=== PATIENT | female | born 1980 | race Hispanic/Latino ===

== ENCOUNTER 2024-03-31 10:42 | Inpatient (IN) | payer BC ==
[~2024-03-31] VITALS: Ht 162.6 cm; Wt 104.8 kg
[2024-03-31] VITALS (10 sets, daily range): BP systolic 154–162; BP diastolic 78–97; PULSE 86–106; RESP 18–22; TEMP 97.3–99.2; O2SAT 94–97
--- NOTE | 2024-03-31 10:51 | NUR ---
PT JUST PLACED IN MY ED BED 19
--- NOTE | 2024-03-31 11:05 | ERN ---
ED Note History of Present Illness Stated Complaint: COUGH AND CONGESTION Chief Complaint: Congestion Dictation: Patient is a 43-year-old female with past medical history of diabetes came to the ED with chief complaint of shortness of breath since 2 months. Patient is experiencing shortness of breath since 2 months, cough since 1 week, had fever and severe headaches since 3 days. Patient also complains of muscle aches, swelling of feet. Patient denies chest pain, nausea, vomitings. Patient took Tylenol at home with no relief. Allergies: Coded Allergies: No Known Drug Allergies (Unverified Allergy, Unknown, 03/31/24) Past Medical History Past Medical History: Diabetes-Type II Surgical History: Review of System Dictation Constitutional-no weight loss/gain, patient complains of chills and fever Eyes-no injury, pain, redness and discharge ENT-no injury, pain, swelling Cardiovascular no chest pain, palpitations, edema Respiratory no wheezing. Patient has shortness of breath and cough Abdomen/GI-no abdominal pain, diarrhea, constipation, vomiting, nausea Back no injury and pain Genitourinary no injury, bleeding and discharge Musculoskeletal/extremities no injury, deformity patient has body aches, swelling of feet Skin no rash, discoloration Neuro-no weakness, numbness, tingling, seizures, tremors. Patient has headaches Psych-no suicidal ideation, homicidal ideation, hallucinations, depression, anxiety, memory loss Initial Vital Sign VS Vital Signs Date Time Temp Pulse Resp B/P (MAP) Pulse Ox O2 Delivery O2 Flow Rate FiO2 03/31/24 10:44 99.0 98 20 154/85 93 Room Air 0 03/31/24 11:15 21 Physical Exam Dictation General-patient is awake alert and oriented Head/neck-normocephalic, atraumatic Eyes-PERRL, EOMI, vision at baseline Neck-trachea midline, supple, no nuchal rigidity Cardiovascular-RRR, normal S1/S2, no MRG is, no JVD Respiratory-no distress, wheezing, rales, rhonchi Abdomen-no tenderness, guarding, soft, nondistended Skin warm, dry, normal turgor, no rash Musculoskeletal/extremities pulses equal, no cyanosis Neuro-COA X 4, GCS 15, strength 5/5, CN 2-12 intact Psych-normal behavior, mood and affect normal Results (Laboratory/Radiology) Laboratory/Radiology Laboratory Tests Test 03/31/24 10:54 03/31/24 11:19 Influenza Type A Antigen Negative For Type A Influenza Type B Antigen Negative For Type B SARS-CoV-2 Antigen (Rapid) PRESUMPTIVE NEGATIVE Group A Streptococcus Rapid negative (NEGATIVE) White Blood Count 13.1 K/uL (4.8-10.8) H Red Blood Count 5.25 MIL/uL (4.00-5.50) Hemoglobin 7.8 g/dL (12.0-16.0) L Hematocrit 30.9 % (36-48) L Mean Corpuscular Volume 58.9 fL (79-99) L Mean Corpuscular Hemoglobin 14.9 pg (27.0-33.0) L Mean Corpuscular Hemoglobin Concent 25.2 g/dL (32.0-36.0) L Red Cell Distribution Width 19.4 % (11.0-15.5) H Platelet Count 379 K/uL (130-400) Mean Platelet Volume 9.5 fL (7.5-10.5) Immature Granulocyte % (Auto) 2.9 % (0-1) H Neutrophils (%) (Auto) 76.4 % (40.0-77.0) Lymphocytes (%) (Auto) 11.3 % (21.0-51.0) L Monocytes (%) (Auto) 7.7 % (3.0-13.0) Eosinophils (%) (Auto) 0.7 % (0.0-8.0) Basophils (%) (Auto) 1.0 % (0.0-5.0) Neutrophils # (Auto) 10.0 K/uL (1.8-7.7) H Lymphocytes # (Auto) 1.5 K/uL (1.0-4.8) Monocytes # (Auto) 1.0 K/uL (0.1-1.0) Eosinophils # (Auto) 0.09 K/uL (0.00-0.70) Basophils # (Auto) 0.13 K/uL (0.00-0.20) Absolute Immature Granulocyte (auto 0.38 K/uL (0-1) Nucleated Red Blood Cells 0.3 % (0.0-0.19) H Sodium Level 130 mmol/L (136-145) L Potassium Level 3.4 mmol/L (3.5-5.1) L Chloride Level 94 mmol/L (101-111) L Carbon Dioxide Level 34 mmol/L (21-32) H Blood Urea Nitrogen 10 mg/dL (7-18) Creatinine 0.6 mg/dL (0.5-1.0) Glomerular Filtration Rate Calc 115 mL/min (>90) Random Glucose 376 mg/dL (70-105) H Total Calcium 8.6 mg/dL (8.5-10.1) Troponin I High Sensitivity 133 ng/L (4-50) *H Serum Test, Qualitative NEGATIVE (NEGATIVE) ED Course ED Course Orders Procedure Category Date Status Time Cbc With Differential LAB 03/31/24 In Process 10:51 Basic Metabolic Panel LAB 03/31/24 Complete 10:51 Rapid (Group A Strep) LAB 03/31/24 Complete 10:51 Influenza Type A & B, LAB 03/31/24 Complete Rapid 10:51 Covid19 (Sars Antigen LAB 03/31/24 Complete Rapid) 10:51 Chest 1vw RAD 03/31/24 Resulted 10:58 12 Lead Ekg Tracing- EKG 03/31/24 Complete Technical 10:58 B-Type Natriuretic LAB 03/31/24 In Process Peptide 10:58 Troponin I High LAB 03/31/24 Complete Sensitivity 10:58 Loratadine 10 Mg PHA 03/31/24 Complete (Loratadine 10 Mg) 11:30 Arterial Blood Gas RT 03/31/24 Transmitted 11:34 Testing, LAB 03/31/24 In Process Serum Hcg 11:34 Insulin Regular, PHA 03/31/24 In Process Human 3ml (Humulin R 12:00 Occult Blood Stool LAB 03/31/24 Logged Single Only 11:50 Vancomycin 1g/250ml PHA 03/31/24 Logged Kit (Vancomycin 1g/2 12:00 Zosyn 3.375gm+Ns 50ml PHA 03/31/24 Logged (Zosyn 3.375gm+Ns 12:00 Current Medications Medications (Trade) Dose Ordered Sig/Emi Route PRN Reason Start Time Stop Time Status Last Admin Dose Admin Insulin Human Regular (humuLIN R 100 UNIT/ML 3ML) 5 unit ONCE ONCE SQ 03/31/24 12:00 03/31/24 12:01 Loratadine (LORATAdine 10 mg) 10 mg ONCE ONCE PO 03/31/24 11:30 03/31/24 11:31 DC 03/31/24 11:20 Piperacillin Sod/ Tazobactam Sod (Zosyn 3.375gm+NS 50ml) 3.375 gm ONCE ONCE IV 03/31/24 12:00 03/31/24 12:01 UNV Vancomycin HCl (Vancomycin 1g/ 250ml Kit) 1 gm ONCE ONCE IV 03/31/24 12:00 03/31/24 12:01 UNV Vital Signs Date Time Temp Pulse Resp B/P (MAP) Pulse Ox O2 Delivery O2 Flow Rate FiO2 03/31/24 11:15 105 19 146/91 93 Room Air* 0 21 03/31/24 10:44 99.0 98 20 154/85 93 Room Air 0 Medical Decision Making MDM INITIAL IMPRESSION Initial history and physical concerning for possible pneumonia, upper respiratory viral infection I have reviewed the triage nursing notes and vital signs. Initial plan: Laboratory evaluation and x-ray DATA REVIEW I have reviewed additional NN, repeat VS, and monitoring where indicated. Heart rate, blood pressure, and O2 saturation are acceptable. ED COURSE Interventions: Labs and antibiotics Reassessment: Not indicated DISPOSITION Final diagnostic impression: Left lower lobe pneumonia, anemia I discussed my findings, clinical impression and treatment recommendations with the patient. I have reviewed the social factors contributing to the patient's presentation and disposition planning. My final plan for disposition was made based upon -mild risk of complications and potential morbidity of the patient's condition. -Discussion with the patient regarding management options. Patient will be admitted and treated DX & DISP Disposition: Inpatient Decision to Admit Date: Mar 31, 2024 Decision to Admit Time: 12:03 Departure Impression: Primary Impression: Left lower lobe pneumonia Additional Impression: Anemia Condition: Stable Time of Disposition: 12:03 I have reviewed I have reviewed the case I have examined patient SARAH MIMS MD Mar 31, 2024 11:05
--- NOTE | 2024-03-31 11:10 | EKG ---
[facility] Test Date: 2024-03-31 Test Time: 11:08:29 Pat Name: MINH LAGUNA Department: ED Room: 231 Gender: F Attending Urologist: [id number] : 1980 Requested By: SARAH MIMS Order Number: [id number] Reading MD: Marci Roman Measurements Intervals [place] Rate: 101 P: 65 OR: 150 QRS: 40 QRSD: 123 T: -2 QT: 365 QTc: 474 Interpretive Statements Sinus tachycardia Probable left atrial enlargement Right bundle branch block No previous ECG available for comparison Electronically Signed On 04-02-2024 11:33:50 MATERIAL MOVER by Marci Roman Please click the below link to view image of tracing.
[2024-03-31 11:18] LABS: RAPID GROUP A STREP negative (NEGATIVE)
[2024-03-31] MEDS: LORATAdine 10 mg 10 MG TABLET PO ONE (11:20)
[2024-03-31 11:24] LABS: BASOPHILS # (AUTO) 0.13 K/uL (0.00-0.20); EOSINOPHILS # (AUTO) 0.09 K/uL (0.00-0.70); EOSINOPHILS % (AUTO) 0.7 % (0.0-8.0); HEMATOCRIT 30.9 % (36-48); IMMATURE GRANULOCYTE ABSOLUTE 0.38 K/uL (0-1); LYMPHOCYTES # (AUTO) 1.5 K/uL (1.0-4.8); LYMPHOCYTES % (AUTO) 11.3 % (21.0-51.0); MEAN CORPUSCULAR HEMOGLOBIN 14.9 pg (27.0-33.0); MEAN CORPUSCULAR HGB CONC 25.2 g/dL (32.0-36.0); MEAN CORPUSCULAR VOLUME 58.9 fL (79-99); MONOCYTES % (AUTO) 7.7 % (3.0-13.0); NEUTROPHILS % (AUTO) 76.4 % (40.0-77.0); NUCLEATED RED BLOOD CELLS 0.3 % (0.0-0.19); PLATELET COUNT (AUTO) 379 K/uL (130-400); RED BLOOD CELL COUNT(AUTO) 5.25 MIL/uL (4.00-5.50); RED CELL DISTRIBUTION WIDTH 19.4 % (11.0-15.5); WHITE BLOOD COUNT (AUTO) 13.1 K/uL (4.8-10.8)
[2024-03-31 11:28] LABS: COVID19 (SARS ANTIGEN RAPID) PRESUMPTIVE NEGATIVE (NEGATIVE); INFLUENZA TYPE A Negative For Type A (NEGATIVE); INFLUENZA TYPE B Negative For Type B (NEGATIVE)
[2024-03-31 11:30] LABS: CREATININE 0.6 mg/dL (0.5-1.0); POTASSIUM 3.4 mmol/L (3.5-5.1)
--- NOTE | 2024-03-31 11:44 | HMCIMG ---
CHEST 1VW REASON: SOB COMPARISON: None. FINDINGS: There is left lower lobe infiltrate consistent with pneumonia. Lungs are otherwise clear. Heart, mediastinum and bony thorax appear unremarkable. IMPRESSION: 1. Left lower lobe pneumonia.
--- NOTE | 2024-03-31 12:13 | NUR ---
OCCULT SAMPLE COLLECTED AND SENT UP. PT ALSO CHANGED INTO A HOSPITAL GOWN
--- NOTE | 2024-03-31 12:18 | NUR ---
[place]: TAYLOR DYER ASSISTANT INFORMED OF [place]
--- NOTE | 2024-03-31 12:36 | NUR ---
DR PÉREZ WAS JUST IN TO SEE THE PT AND WILL BE PLACING FURTHER ORDERS
[2024-03-31] MEDS ORDERED: VANCOMYCIN PROTOCOL PER PHARMACY IV SCH (13:00)
[2024-03-31] MEDS ORDERED: MAGNESIUM 2GM PREMIX 50ML 50 ML IV SCH (13:00)
[2024-03-31] MEDS ORDERED: PoTASSium chloRIDE 20MEQ/100ML 100 ML IV PRN (13:00)
[2024-03-31] MEDS ORDERED: PoTASSium chloRIDE 20MEQ ER 20 MEQ ERTAB PO PRN (13:00)
[2024-03-31] MEDS ORDERED: acetaMINOPHEN 500 MG TABLET PO PRN (13:00)
[2024-03-31] MEDS ORDERED: ondanSETRON 4MG INJ IVP PRN (13:00)
[2024-03-31 13:03] LABS: ABG BASE EXCESS 0.3 mmol/L (-2.0-3.0); ABG HCO3 24.8 mmol/L (21.0-28.0); ABG OXYGEN SATURATION 90.3 % (94.0-98.0); ABG PCO2 40 mmHg (32-45); ABG PH 7.414 (7.350-7.450); HHb 9.4; PO2, ARTERIAL BG 58.8 mmHg (83.0-108.0); VENT MODE, BG RA (ROOM AIR)
--- NOTE | 2024-03-31 13:05 | NUR ---
ABGS PER TAYLOR ARE: PH 7.4 PCO2 39 PO2 58 BICARB 24
[2024-03-31] MEDS: IpraTROPium 0.5 MG/2.5 ML INH IH ONE (13:10)
[2024-03-31] MEDS: PANTOPrazole 40 MG/VIAL IVP ONE (13:10)
[2024-03-31] MEDS: ZOSYN 3.375GM +NS 50ML IV ONE (13:10)
[2024-03-31] MEDS: BUDESONIDE 0.5 MG/2 ML INH IH ONE ×3 (13:12→15:06)
[2024-03-31 13:14] LABS: RETICULOCYTE % (AUTO) 2.38 % (0.42-2.23)
[2024-03-31 13:16] LABS: % IRON SATURATION 2.3 % (22-44)
[2024-03-31 13:17] LABS: APPEARANCE,URINE CLEAR (CLEAR); BILIRUBIN,URINE NEGATIVE (NEGATIVE); COLOR,URINE LIGHT-YELLOW (YELLOW); GLUCOSE, URINE (UA) >=1000 mg/dL (NEGATIVE); KETONES,URINE 100 mg/dL (NEGATIVE); LEUKOCYTE ESTERASE ,URINE NEGATIVE Leu/uL (NEGATIVE); NITRATE,URINE NEGATIVE (NEGATIVE); OCCULT BLOOD,URINE NEGATIVE (NEGATIVE); PROTEIN,URINE 30 mg/dL (NEGATIVE); UROBILINOGEN,URINE 0.2 mg/dL (0.2-1.0)
[2024-03-31 13:18] LABS: ADD UA MICROSCOPIC YES; BACTERIA,URINE RARE /HPF (None Seen); SQUAMOUS EPITHELIAL CELL,UR RARE /HPF (0-2); WBC,URINE 0-1 /HPF (0-1)
[2024-03-31 13:21] LABS: INR 1.07 (0.85-1.15); PROTHROMBIN TIME 11.5 SEC (9.6-11.6)
[2024-03-31 13:22] LABS: PARTIAL THROMBOPLASTIN TIME 24.7 SEC (26.3-35.5)
[2024-03-31] MEDS: VANCOMYCIN KIT 1 GM/250 ML IV.KIT IV ONE (13:42)
[2024-03-31] MEDS: VANCOMYCIN 2GM/500 ML BAG 500 ML IV ONE (13:42)
[2024-03-31 13:44] LABS: ALBUMIN 3.1 g/dL (3.5-5.0); BILIRUBIN,DIRECT 0.1 mg/dL (0.0-0.3); BILIRUBIN,TOTAL 0.3 mg/dL (0.2-1.0); MAGNESIUM 1.8 mg/dL (1.80-2.40); THYROID STIMULATING HORMONE 0.64 uIU/mL (0.36-3.74); TOTAL PROTEIN, SERUM 7.6 g/dL (6.0-8.3)
--- NOTE | 2024-03-31 13:49 | HP ---
[facility] HISTORY AND PHYSICAL Date of Service: Mar 31, 2024 Time of Service: 13:40 HISTORY OF PRESENT ILLNESS: Date of service: 03/31/2024, patient was seen in ER room 19, 43-year-old female with history of uncontrolled type 2 diabetes mellitus, hypertension who presented to the ER with chief complaint of shortness of breath. Symptoms of shortness of breath have been ongoing for the past several months and has progressively worsened over the past one week. She has noticed subjective fevers, chills and malaise over the last several days. He has been having dry cough as well. She reports having dyspnea on exertion with minimal activities. She also reports having PND and orthopnea. Denies previous history of cardiac or pulmonary comorbidities. She has not been able to follow up with a physician regularly as outpatient due to issues with medical insurance. Also reports having history of heavy periods which has been ongoing for the past five years. Reports having heavy periods for three weeks where she passes blood clots as well. Denies noticing hematemesis, hematochezia, or melena. Denies hemoptysis or hematuria. Denies history of bleeding issues. Reports that she needed blood transfusion about 20 years ago due to an . She has had nine previous pregnancies with seven kids. Currently denies active smoking or alcohol consumption. She works as a care provider. She has been taking care of her son who he recently underwent surgery in [facility] for a torn ACL. She was visiting him in the hospital yesterday. On presentation to the hospital, patient was noted to be tachycardic with heart rate of 98, T-max of 99.0 F and blood pressure of 146/91. [place] [address], hemoglobin of 7.8, MCV of 59, platelet count of 967151. CMP remarkable for corrected sodium of 137, potassium 3.4, creatinine 0.6, blood glucose of 376, cardiac panel of 133, BUN of 109. Chest x-ray showed left lower lobe infiltrate concerning for pneumonia. Patient will be admitted for further management of acute hypoxemic respiratory failure, developing left lower lobe pneumonia, severe iron deficiency anemia with history of menorrhagia, demand ischemia . Patient will be admitted to cardiac telemetry floor and will be monitored closely. REVIEW OF SYSTEMS CONSTITUTIONAL: Fatigue, malaise, asthenia NEUROLOGICAL: Denies headache, amaurosis fugax, motor weakness, sensory deficit, vertigo/spinning sensation, gait abnormalities, or tremors. ENT: No hearing loss, otalgia, otorrhea, rhinitis, rhinorrhea, hoarseness, or sore throat. CARDIOVASCULAR: History of intermittent chest pain as outpatient PULMONARY: Shortness of breath with phlegm, dyspnea on exertion, PND, orthopnea SLEEP: Denies morning headaches, daytime somnolence or napping. Denies difficulty falling asleep, staying asleep, waking from sleep. Denies knowledge of snoring. GASTROINTESTINAL: Denies any type of dysphagia to either liquids or solids. Denies nausea, vomiting, pyrosis, early satiety, abdominal pain, diarrhea, constipation, or changes in stool consistency or caliber. Denies coffee-ground emesis, hematemesis, hematochezia, or melanotic stools. GENITOURINARY: Denies frequency, urgency, nocturia, hematuria or incontinence (Storage/Irritative symptoms.) Low urinary stream, straining to void, urinary intermittency or hesitancy, splitting of the voiding stream, terminal dribbling. ENDOCRINOLOGIC: Denies polyuria, polydipsia, polyphagia or heat/cold intolerances. HEMATOLOGIC: Denies thrombophilia/previous clots, or coagulopathy/bleeding disorders. ONCOLOGIC: Denies personal history of malignancy. DERMATOLOGIC: Denies rashes or pruritus. PSYCHIATRIC: Denies any suicidal or homicidal ideation. Denies hallucinations. PAST MEDICAL HISTORY: History of hypertension and poorly controlled type 2 diabetes mellitus, patient reports having trouble affording antihyperglycemic medications previously due to issues with her medical insurance, she has not been taking anti hypertensive therapy recently PAST SURGICAL HISTORY: History of tubal ligation, history of C-sections PAST SOCIAL HISTORY: Currently denies active smoking or alcohol consumption, prior to getting ill, patient is independent with her ADLs and IADLs, currently works as a care provider FAMILY HISTORY: Family history of heart disease, hypertension, and diabetes in father and mother Allergies: Patient denies any known drug allergies Medications: Patient will be bringing home medication list to be reconciled and updated Coded Allergies: No Known Drug Allergies (Unverified Allergy, Unknown, 03/31/24) PHYSICAL EXAM GENERAL APPEARANCE: The patient is awake, alert, and oriented, in no acute cardiopulmonary distress. NEUROLOGICAL: Cranial nerves II-XII grossly intact. Motor is 5/5 in bilateral upper and lower extremities proximal to distal. No sensory deficits. HEENT: Face is symmetric. Pupils are equal and reactive. Extraocular movements are intact. NECK: Supple. No JVD. No thyromegaly. No submental, submandibular, pre- /postauricular, occipital or supraclavicular lymphadenopathy. CHEST: Normal chest expansion. No Telemetry. LUNGS: Crackles noted of the left lung base, no wheezes and rhonchi noted CARDIOVASCULAR: Regular. S1 and S2 normal. No appreciable rubs, murmurs or gallops. ABDOMEN: Soft, nontender, and nondistended. There is no rebound, voluntary guarding, or rigidity. : Deferred. No Berg. EXTREMITIES: no significant edema noted of the bilateral lower extremities SKIN: No skin breakdown. Vital Sign (Last 24 Hours) 03/31/24 03/31/24 10:44 11:15 Temp 99.0 Pulse 105 Resp 19 B/P (MAP) 146/91 Pulse Ox 93 O2 Delivery Room Air* O2 Flow Rate 0 FiO2 21 LABS: Laboratory: Test 03/31/24 13:01 03/31/24 12:45 03/31/24 12:00 03/31/24 11:19 Range/Units Blood Gas Specimen Type Arterial Arterial Blood pH 7.414 7.350-7.450 Arterial Blood Partial Pressure CO2 40 32-45 mmHg Arterial Blood Partial Pressure O2 58.8 L 83.0-108.0 mmHg Arterial Blood HCO3 24.8 21.0-28.0 mmol/L Arterial Blood Oxygen Saturation 90.3 L 94.0-98.0 % Arterial Blood Base Excess 0.3 -2.0-3.0 mmol/L Hemoglobin (Blood Gas) 9.2 L 12.0-16.0 g/dL Sodium (Blood Gas) 134 L 136-145 MMOL/L Bedside Potassium (Blood Gas) 3.9 3.4-4.5 MMOL/L Bedside Chloride (Blood Gas) 97 L 98-107 MMOL/L Bedside Glucose (Blood Gas) 340 H 65-95 MG/DL Bedside Ionized Calcium (Blood Gas) 1.13 L 1.15-1.33 MMOL/L Bedside Lactic Acid (Blood Gas) 1.83 H 0.36-0.75 MMOL/L Blood Gas Temperature 37.0 35.5-37.0 CELSIUS Blood Gas Vent Mode RA ROOM AIR FiO2 21.0 % Blood Gas Specimen Comment RRJESSE Urine Color LIGHT-YELLOW YELLOW Urine Appearance CLEAR CLEAR Urine pH 6.0 5.0-8.0 Urine Specific [place] 1.040 H 1.001-1.031 Urine Protein 30 H NEGATIVE mg/dL Urine Glucose (UA) >=1000 H NEGATIVE mg/dL Urine Ketones 100 H NEGATIVE mg/dL Urine Occult Blood NEGATIVE NEGATIVE Urine Nitrate NEGATIVE NEGATIVE Urine Bilirubin NEGATIVE NEGATIVE mg/dL Urine Urobilinogen 0.2 0.2-1.0 mg/dL Urine Leukocyte Esterase NEGATIVE NEGATIVE Kt/uL Urine RBC 2-5 H 0-1 /HPF Urine WBC 0-1 0-1 /HPF Urine Squamous Epithelial Cells RARE 0-2 /HPF Urine Bacteria RARE None Seen /HPF Stool Occult Blood NEGATIVE NEGATIVE White Blood Count 13.1 H 4.8-10.8 K/uL Red Blood Count 5.25 4.00-5.50 MIL/uL Hemoglobin 7.8 L 12.0-16.0 g/dL Hematocrit 30.9 L 36-48 % Mean Corpuscular Volume 58.9 L 79-99 fL Mean Corpuscular Hemoglobin 14.9 L 27.0-33.0 pg Mean Corpuscular Hemoglobin Concent 25.2 L 32.0-36.0 g/dL Red Cell Distribution Width 19.4 H 11.0-15.5 % Platelet Count 379 130-400 K/uL Mean Platelet Volume 9.5 7.5-10.5 fL Immature Granulocyte % (Auto) 2.9 H 0-1 % Neutrophils (%) (Auto) 76.4 40.0-77.0 % Lymphocytes (%) (Auto) 11.3 L 21.0-51.0 % Monocytes (%) (Auto) 7.7 3.0-13.0 % Eosinophils (%) (Auto) 0.7 0.0-8.0 % Basophils (%) (Auto) 1.0 0.0-5.0 % Neutrophils # (Auto) 10.0 H 1.8-7.7 K/uL Lymphocytes # (Auto) 1.5 1.0-4.8 K/uL Monocytes # (Auto) 1.0 0.1-1.0 K/uL Eosinophils # (Auto) 0.09 0.00-0.70 K/uL Basophils # (Auto) 0.13 0.00-0.20 K/uL Absolute Immature Granulocyte (auto 0.38 0-1 K/uL Nucleated Red Blood Cells 0.3 H 0.0-0.19 % Red Blood Cell Morphology See comments Reticulocyte Count (auto) 2.47602 H 0.42-2.23 % Immature Reticulocyte Fraction 36.60 H 0.18-0.48 % Prothrombin Time 11.5 9.6-11.6 SEC Prothromb Time International Ratio 1.07 0.85-1.15 Activated Partial Thromboplast Time 24.7 L 26.3-35.5 SEC Sodium Level 130 L 136-145 mmol/L Potassium Level 3.4 L 3.5-5.1 mmol/L Chloride Level 94 L 101-111 mmol/L Carbon Dioxide Level 34 H 21-32 mmol/L Blood Urea Nitrogen 10 7-18 mg/dL Creatinine 0.6 0.5-1.0 mg/dL Glomerular Filtration Rate Calc 115 >90 mL/min Random Glucose 376 H 70-105 mg/dL Total Calcium 8.6 8.5-10.1 mg/dL Iron Level 8 L 50-170 mcg/dL Total Iron Binding Capacity 337 250-450 mcg/dL Percent Iron Saturation 2.3 L 22-44 % Troponin I High Sensitivity 133 *H 4-50 ng/L B-Type Natriuretic Peptide 109 H 0-100 pg/mL Procalcitonin 0.09 0.05-0.5 ng/mL Serum Test, Qualitative NEGATIVE NEGATIVE Test 03/31/24 10:54 Range/Units Influenza Type A Antigen Negative For Type A NEGATIVE Influenza Type B Antigen Negative For Type B NEGATIVE SARS-CoV-2 Antigen (Rapid) PRESUMPTIVE NEGATIVE NEGATIVE Group A Streptococcus Rapid negative NEGATIVE Current Medications Medications (Trade) Dose Ordered Sig/Emi Route PRN Reason Start Time Stop Time Status Last Admin Dose Admin Acetaminophen (TYLenol 500MG TAB) 500 mg Q6H PRN PO MILD PAIN (1-3) 03/31/24 13:00 04/30/24 12:59 Cefepime HCl (MAXipime 2 gm vial) 2 gm Q12H IVPB 03/31/24 16:00 04/10/24 15:59 Doxycycline Hyclate (Doxycycline Hyclate) 100 mg Q12H PO 03/31/24 13:00 04/10/24 12:59 Folic Acid (FOLic ACID 1 MG TABLET) 1 mg DAILY PO 04/01/24 09:00 05/01/24 08:59 Guaifenesin/ Dextromethorphan (RobiTUSSin DM 200/20MG 10ML) 10 ml Q6H PRN PO COUGH 03/31/24 13:30 04/30/24 13:29 Insulin Human Regular (humuLIN R 100 UNIT/ML 3ML) INSULIN SLIDING SCAL... ACHS SQ 03/31/24 16:30 04/30/24 16:29 Ipratropium [place] (AtrovENT UD) 0.5 mg Q6H IH 03/31/24 18:00 04/30/24 17:59 Iron Sucrose 300 mg/Sodium Chloride 250 ml @ 83 mls/hr DAILY IV 04/01/24 09:00 04/04/24 09:00 Future Hold Magnesium Sulfate 50 ml @ 0 mls/hr PROTOCOL IV 03/31/24 13:00 04/30/24 12:59 Ondansetron HCl (zoFRAN 4MG INJ) 4 mg Q6H PRN IVP NAUSEA/VOMITING 03/31/24 13:00 04/30/24 12:59 Pantoprazole Sodium (PROTonix 40MG INJ) 40 mg DAILY IVP 04/01/24 09:00 05/01/24 08:59 Potassium Chloride 100 ml @ 100 mls/hr AD PRN IV POTASSIUM PROTOCOL 03/31/24 13:00 04/30/24 12:59 Potassium Chloride (K-Dur/Klor-Con 20meq) 20 meq AD PRN PO POTASSIUM PROTOCOL 03/31/24 13:00 04/30/24 12:59 Potassium Chloride (KCl 10% Elixir 20meq/15ml) 20 meq AD PRN PO POTASSIUM PROTOCOL 03/31/24 13:00 04/30/24 12:59 Sodium Chloride 1,000 ml @ 75 mls/hr [id number] IV 03/31/24 13:30 04/30/24 13:29 Vancomycin HCl 250 ml @ 125 mls/hr Q8H IV 03/31/24 21:30 04/10/24 21:29 Vancomycin HCl (Vancomycin Protocol) 1 each AD IV 03/31/24 13:00 04/14/24 12:59 DIAGNOSTICS / RADIOLOGY: SERVICE [id number] REASON: SOB ORDERING PHYSICIAN: SARAH MIMS MD PROCEDURE: CXR1VW - CHEST 1VW CHEST 1VW REASON: SOB COMPARISON: None. FINDINGS: There is left lower lobe infiltrate consistent with pneumonia. Lungs are otherwise clear. Heart, mediastinum and bony thorax appear unremarkable. IMPRESSION: 1. Left lower lobe pneumonia. DICTATED BY: VERONICA CHAMBERS MD DATE: 03/31/24 114 ELECTRONICALLY SIGNED BY: VERONICA CHAMBERS MD DATE: 03/31/24 1144 ASSESSMENT: Acute hypoxemic respiratory failure, POA Left lower lobe community-acquired pneumonia, POA Severe iron deficiency anemia with underlying history of menorrhagia for five years, POA Demand ischemia, POA Sinus tachycardia with right bundle branch block, POA Leukocytosis secondary to underlying pneumonia, POA Hypovolemic hyponatremia, POA Hypokalemia, POA Poorly controlled type 2 diabetes mellitus, POA Underlying history of hypertension, POA Suspected obstructive sleep apnea, POA Obesity, POA PLAN: The patient will be admitted to cardiac telemetry floor Continue with supplemental O2 therapy to maintain oxygen saturation greater than 92% With regards to left lower lobe pneumonia, we will start patient on broad- spectrum antibiotics with vancomycin/cefepime/doxycycline Obtain sputum culture, Legionella, urine Streptococcus, and mycoplasma serologies We will start gentle IV hydration with NS at 75 mL/hour x 24 hours as oral intake remains poor, we will check a lactic acid Patient reports having intermittent history of chest pain as outpatient, currently denies active chest pain, we will recheck a cardiac panel for later tonight, obtain 2D echocardiogram, we will have Cardiology follow up with this patient We will start patient on amlodipine 5 mg bid for management of blood pressure, antihypertensives can be titrated based on blood pressure trend next 24-48 hours We will request consultation with pulmonology We will check iron panel, transfuse to maintain hemoglobin greater than seven, obtain pelvic ultrasound to rule out uterine pathology given history of menorrhagia, we will start IV iron sucrose infusion starting tomorrow times 30 days, Dr. Wang with Gynecology has been notified We will start patient on sliding scale insulin a.c. and HS, basal Lantus tonight based on blood glucose trend, patient will need optimization of diabetes control on discharge, will need basal insulin on discharge and oral anti-hyperglycemic Patient will benefit from sleep study as outpatient, we will start CPAP therapy tonight for concerns for MARIANO, patient also may have signs of restless legs syndrome due to severe iron deficiency anemia We will start Pulmicort twice daily and Atrovent q.6 hours We will follow up inflammatory markers,we will check H&H q.6 hours tonight, All labs will be repeated in the morning, transfuse to maintain Hgb > 7 DVT prophylaxis with SCDs today given severe anemia with history of menorrhagia, we will also check a venous Doppler Anticipate hospitalization for at least 72 hours Date of service: 03/31/2024 Plan of care was discussed with patient at bedside, Prognosis: Guarded Rafat Cooper MD Advanced Care Planning: Which of the following were discussed: Hospice care: Yes __ No _x_ Therapeutic options: Yes _x_ No __ Advance directives: Yes _x_ No __ Other discussions: Discussed with who?: Patient Voluntary nature of this service was explained to the patient? Yes _x_ No __ Amount of time spent: 20 minutes RAFAT COOPER MD Mar 31, 2024 13:49
--- NOTE | 2024-03-31 13:50 | NUR ---
HEMATOLOGY CONSULT: DR RIVERO JUST ARRIVED AT BEDSIDE. DR PÉREZ AGAIN AT BEDSIDE WELL.
--- NOTE | 2024-03-31 13:57 | NUR ---
CARDIOLOGY CONSULT: DR PÉREZ GAVE PATIENT REPORT TO DR BOWERS
[2024-03-31] MEDS ORDERED: IRON sUCROse COMPLEX 300 MG in 0.9% NACL 250ML 250 ML IV SCH (14:00)
--- NOTE | 2024-03-31 14:04 | NUR ---
BENCHMARK DENISBILLY MEDIA PROFESSIONAL AT BEDSIDE
--- NOTE | 2024-03-31 14:05 | NUR ---
BED ASSIGNMENT: BED 231 JUST ASSIGNED TO THE PT BY [employer]ENT Amanda TINSLEY
--- NOTE | 2024-03-31 14:16 | CONS ---
CONSULT NOTE: 43-year-old female with history of uncontrolled type 2 diabetes mellitus, hypertension who presented to the ER with chief complaint of shortness of breath. Symptoms of shortness of breath have been ongoing for the past several months and has progressively worsened over the past one week. She has noticed subjective fevers, chills and malaise over the last several days. He has been having dry cough as well. She reports having dyspnea on exertion with minimal activities. She also reports having PND and orthopnea. Denies previous history of cardiac or pulmonary comorbidities. She has not been able to follow up with a physician regularly as outpatient due to issues with medical insurance. Also reports having history of heavy periods which has been ongoing for the past five years. Reports having heavy periods for three weeks where she passes blood clots as well. Denies noticing hematemesis, hematochezia, or melena. Denies hemoptysis or hematuria. Denies history of bleeding issues. Reports that she needed blood transfusion about 20 years ago due to an . She has had nine previous pregnancies with seven kids. Currently denies active smoking or alcohol consumption. 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 She was visiting him in the hospital yesterday. On presentation to the hospital, patient was noted to be tachycardic with heart rate of 98, T-max of 99.0 F and blood pressure of 146/91. [place] [address], hemoglobin of 7.8, MCV of 59, platelet count of [id number]. CMP remarkable for corrected sodium of 137, potassium 3.4, creatinine 0.6, blood glucose of 376, cardiac panel of 133, BUN of 109. Chest x-ray showed left lower lobe infiltrate concerning for pneumonia. Patient will be admitted for further management of acute hypoxemic respiratory failure, developing left lower lobe pneumonia, severe iron deficiency anemia with history of menorrhagia, demand ischemia . Patient will be admitted to cardiac telemetry floor and will be monitored closely. REVIEW OF SYSTEMS CONSTITUTIONAL: Fatigue, malaise, asthenia NEUROLOGICAL: Denies headache, amaurosis fugax, motor weakness, sensory deficit, vertigo/spinning sensation, gait abnormalities, or tremors. ENT: No hearing loss, otalgia, otorrhea, rhinitis, rhinorrhea, hoarseness, or sore throat. CARDIOVASCULAR: History of intermittent chest pain as outpatient PULMONARY: Shortness of breath with phlegm, dyspnea on exertion, PND, orthopnea SLEEP: Denies morning headaches, daytime somnolence or napping. Denies difficulty falling asleep, staying asleep, waking from sleep. Denies knowledge of snoring. GASTROINTESTINAL: Denies any type of dysphagia to either liquids or solids. Denies nausea, vomiting, pyrosis, early satiety, abdominal pain, diarrhea, constipation, or changes in stool consistency or caliber. Denies coffee-ground emesis, hematemesis, hematochezia, or melanotic stools. GENITOURINARY: Denies frequency, urgency, nocturia, hematuria or incontinence (Storage/Irritative symptoms.) Low urinary stream, straining to void, urinary intermittency or hesitancy, splitting of the voiding stream, terminal dribbling. ENDOCRINOLOGIC: Denies polyuria, polydipsia, polyphagia or heat/cold intolerances. HEMATOLOGIC: Denies thrombophilia/previous clots, or coagulopathy/bleeding disorders. ONCOLOGIC: Denies personal history of malignancy. DERMATOLOGIC: Denies rashes or pruritus. PSYCHIATRIC: Denies any suicidal or homicidal ideation. Denies hallucinations. PAST MEDICAL HISTORY: History of hypertension and poorly controlled type 2 diabetes mellitus, patient reports having trouble affording antihyperglycemic medications previously due to issues with her medical insurance, she has not been taking anti hypertensive therapy recently PAST SURGICAL HISTORY: History of tubal ligation, history of C-sections PAST SOCIAL HISTORY: Currently denies active smoking or alcohol consumption, prior to getting ill, patient is independent with her ADLs and IADLs, currently works as a care provider FAMILY HISTORY: Family history of heart disease, hypertension, and diabetes in father and mother Allergies: Patient denies any known drug allergies Medications: Patient will be bringing home medication list to be reconciled and updated Coded Allergies: No Known Drug Allergies (Unverified Allergy, Unknown, 03/31/24) PHYSICAL EXAM GENERAL APPEARANCE: The patient is awake, alert, and oriented, in no acute cardiopulmonary distress. NEUROLOGICAL: Cranial nerves II-XII grossly intact. Motor is 5/5 in bilateral upper and lower extremities proximal to distal. No sensory deficits. HEENT: Face is symmetric. Pupils are equal and reactive. Extraocular movements are intact. NECK: Supple. No JVD. No thyromegaly. No submental, submandibular, pre- /postauricular, occipital or supraclavicular lymphadenopathy. CHEST: Normal chest expansion. No Telemetry. LUNGS: Absence of any rales, rhonchi or any wheezing. CARDIOVASCULAR: Regular. S1 and S2 normal. No appreciable rubs, murmurs or gallops. ABDOMEN: Soft, nontender, and nondistended. There is no rebound, voluntary guarding, or rigidity. : Deferred. No Berg. EXTREMITIES: Non-edematous and not cyanotic. No clubbing. Good capillary refill. SKIN: No skin breakdown. 43-year-old female with history of uncontrolled type 2 diabetes mellitus, hypertension who presented to the ER with chief complaint of shortness of breath. Symptoms of shortness of breath have been ongoing for the past several months and has progressively worsened over the past one week. She has noticed subjective fevers, chills and malaise over the last several days. He has been having dry cough as well. She reports having dyspnea on exertion with minimal activities. She also reports having PND and orthopnea. Denies previous history of cardiac or pulmonary comorbidities. She has not been able to follow up with a physician regularly as outpatient due to issues with medical insurance. Also reports having history of heavy periods which has been ongoing for the past five years. Reports having heavy periods for three weeks where she passes blood clots as well. Denies noticing hematemesis, hematochezia, or melena. Denies hemoptysis or hematuria. Denies history of bleeding issues. Reports that she needed blood transfusion about 20 years ago due to an . She has had nine previous pregnancies with seven kids. Currently denies active smoking or alcohol consumption. 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 She was visiting him in the hospital yesterday. On presentation to the hospital, patient was noted to be tachycardic with heart rate of 98, T-max of 99.0 F and blood pressure of 146/91. Labs [place] [address], hemoglobin of 7.8, MCV of 59, platelet count of [id number]. CMP remarkable for corrected sodium of 137, potassium 3.4, creatinine 0.6, blood glucose of 376, cardiac panel of 133, BUN of 109. Chest x-ray showed left lower lobe infiltrate concerning for pneumonia. Patient was started on antibiotic treatment. Patient was found to have severe anemia with iron deficiency anemia.Her anemia could be multifactorial which could be due to hemolytic anemia and iron deficiency anemia at the same time. REVIEW OF SYSTEMS CONSTITUTIONAL: Fatigue, malaise, asthenia NEUROLOGICAL: Denies headache, amaurosis fugax, motor weakness, sensory deficit, vertigo/spinning sensation, gait abnormalities, or tremors. ENT: No hearing loss, otalgia, otorrhea, rhinitis, rhinorrhea, hoarseness, or sore throat. CARDIOVASCULAR: History of intermittent chest pain as outpatient PULMONARY: Shortness of breath with phlegm, dyspnea on exertion, PND, orthopnea SLEEP: Denies morning headaches, daytime somnolence or napping. Denies difficulty falling asleep, staying asleep, waking from sleep. Denies knowledge of snoring. GASTROINTESTINAL: Denies any type of dysphagia to either liquids or solids. Denies nausea, vomiting, pyrosis, early satiety, abdominal pain, diarrhea, constipation, or changes in stool consistency or caliber. Denies coffee-ground emesis, hematemesis, hematochezia, or melanotic stools. GENITOURINARY: Denies frequency, urgency, nocturia, hematuria or incontinence (Storage/Irritative symptoms.) Low urinary stream, straining to void, urinary intermittency or hesitancy, splitting of the voiding stream, terminal dribbling. ENDOCRINOLOGIC: Denies polyuria, polydipsia, polyphagia or heat/cold intolera nces. HEMATOLOGIC: Denies thrombophilia/previous clots, or coagulopathy/bleeding disorders. ONCOLOGIC: Denies personal history of malignancy. DERMATOLOGIC: Denies rashes or pruritus. PSYCHIATRIC: Denies any suicidal or homicidal ideation. Denies hallucinations. PAST MEDICAL HISTORY: History of hypertension and poorly controlled type 2 diabetes mellitus, patient reports having trouble affording antihyperglycemic medications previously due to issues with her medical insurance, she has not been taking anti hypertensive therapy recently PAST SURGICAL HISTORY: History of tubal ligation, history of C-sections PAST SOCIAL HISTORY: Currently denies active smoking or alcohol consumption, prior to getting ill, patient is independent with her ADLs and IADLs, currently works as a care provider FAMILY HISTORY: Family history of heart disease, hypertension, and diabetes in father and mother Allergies: Patient denies any known drug allergies Medications: Patient will be bringing home medication list to be reconciled and updated Coded Allergies: No Known Drug Allergies (Unverified Allergy, Unknown, 03/31/24) PHYSICAL EXAM GENERAL APPEARANCE: The patient is awake, alert, and oriented, in no acute cardiopulmonary distress. NEUROLOGICAL: Cranial nerves II-XII grossly intact. Motor is 5/5 in bilateral upper and lower extremities proximal to distal. No sensory deficits. HEENT: Face is symmetric. Pupils are equal and reactive. Extraocular movements are intact. NECK: Supple. No JVD. No thyromegaly. No submental, submandibular, pre- /postauricular, occipital or supraclavicular lymphadenopathy. CHEST: Normal chest expansion. No Telemetry. LUNGS: Absence of any rales, rhonchi or any wheezing. CARDIOVASCULAR: Regular. S1 and S2 normal. No appreciable rubs, murmurs or gallops. ABDOMEN: Soft, nontender, and nondistended. There is no rebound, voluntary guarding, or rigidity. : Deferred. No Berg. EXTREMITIES: Non-edematous and not cyanotic. No clubbing. Good capillary refill. SKIN: No skin breakdown. Assessment 1. Anemia which look like multifactorial including iron deficiency anemia, possibility of hemolytic anemia. 2. Left lower lobe community-acquired pneumonia 3. Leukocytosis 4. Reactive thrombocytosis 5. Uncontrolled diabetes mellitus 6. Vaginal bleeding for few years. With seems the patient was seen by [facility] and there was a plan for surgery to be done for this patient. Plan 1. Peripheral blood smear showed red blood cells to be normocytic normochromic. There was increased polychromasia cell with consistent increased reticulocyte count. This patient has not taken oral iron. So this patient could have hemolysis. There was no fragment cell or schistocyte. There is no teardrop cell. There is no rouleaux phenomena. There is no pelger-Huet cell. White blood cell with no blasts. White cell with increased bands and neutrophil which could be consistent with infection. Manual platelet count increased significantly. It is around 600 K. Most likely due to iron deficiency anemia and infection. 2. There was hypersegmented neutrophils. This patient to be started on folic acid 1 mg p.o. daily and vitamin B12 1000 mcg p.o. daily. 3. Will ask for direct Florecita test. If it is positive then this patient could not receive blood transfusion and the patient should be started on high-dose dexamethasone 40 mg IV daily 4. Iron study is low this patient could be started on IV iron tomorrow. 5. No need for blood product transfusion 6. This patient need to be seen by [facility]. Patient have ultrasound to the pelvis. Will follow-up closely. LAB RESULTS 03/31/24 13:01: Blood Gas Specimen Type Arterial, Arterial Blood pH 7.414, Arterial Blood Partial Pressure CO2 40, Arterial Blood Partial Pressure O2 58.8L, Arterial Blood HCO3 24.8, Arterial Blood Oxygen Saturation 90.3L, Arterial Blood Base Excess 0.3, Hemoglobin (Blood Gas) 9.2L, Sodium (Blood Gas) 134L, Bedside Potassium (Blood Gas) 3.9, Bedside Chloride (Blood Gas) 97L, Bedside Glucose (Blood Gas) 340H, Bedside Ionized Calcium (Blood Gas) 1.13L, Bedside Lactic Acid (Blood Gas) 1.83H, Blood Gas Temperature 37.0, Blood Gas Vent Mode RA, FiO2 21.0, Blood Gas Specimen Comment RRJESSE, Lactic Acid Level 1.9 03/31/24 12:45: Urine Color LIGHT-YELLOW, Urine Appearance CLEAR, Urine pH 6.0, Urine Specific [place] 1.040H, Urine Protein 30H, Urine Glucose (UA) >=1000H, Urine Ketones 100H, Urine Occult Blood NEGATIVE, Urine Nitrate NEGATIVE, Urine Bilirubin NEGATIVE, Urine Urobilinogen 0.2, Urine Leukocyte Esterase NEGATIVE, Urine RBC 2-5H, Urine WBC 0-1, Urine Squamous Epithelial Cells RARE, Urine Bacteria RARE 03/31/24 12:00: Stool Occult Blood NEGATIVE 03/31/24 11:19: White Blood Count 13.1H, Red Blood Count 5.25, Hemoglobin 7.8L, Hematocrit 30.9L, Mean Corpuscular Volume 58.9L, Mean Corpuscular Hemoglobin 14.9L, Mean Corpuscular Hemoglobin Concent 25.2L, Red Cell Distribution Width 19.4H, Platelet Count 379, Mean Platelet Volume 9.5, Immature Granulocyte % (Auto) 2.9H, Neutrophils (%) (Auto) 76.4, Lymphocytes (%) (Auto) 11.3L, Monocytes (%) (Auto) 7.7, Eosinophils (%) (Auto) 0.7, Basophils (%) (Auto) 1.0, Neutrophils # (Auto) 10.0H, Lymphocytes # (Auto) 1.5, Monocytes # (Auto) 1.0, Eosinophils # (Auto) 0.09, Basophils # (Auto) 0.13, Absolute Immature Granulocyte (auto 0.38, Nucleated Red Blood Cells 0.3H, Red Blood Cell Morphology See comments, Reticulocyte Count (auto) 2.32876U, Immature Reticulocyte Fraction 36.60H, Prothrombin Time 11.5, Prothromb Time International Ratio 1.07, Activated Partial Thromboplast Time 24.7L, D-Dimer Quantitative (PE/DVT) 674*H, Sodium Level 130L, Potassium Level 3.4L, Chloride Level 94L, Carbon Dioxide Level 34H, Blood Urea Nitrogen 10, Creatinine 0.6, Glomerular Filtration Rate Calc 115, Random Glucose 376H, Hemoglobin A1c 11.0H, Estimated Average Glucose (eAG) 269H, Total Calcium 8.6, Magnesium Level 1.80, Iron Level 8L, Total Iron Binding Capacity 337, Percent Iron Saturation 2.3L, Total Bilirubin 0.3, Direct Bilirubi n 0.1, Aspartate Amino Transf (AST/SGOT) 12, Alanine Aminotransferase (ALT/SGPT) 12, Alkaline Phosphatase 97, Lactate Dehydrogenase 210, Troponin I High Sensitivity 133*H, C-Reactive Protein, Quantitative 86.00H, B-Type Natriuretic Peptide 109H, Total Protein 7.6, Albumin 3.1L, Vitamin B12 Level 1112H, Folic Acid (LAB) 19.00, Procalcitonin 0.09, Thyroid Stimulating Hormone (TSH) 0.64, Serum Test, Qualitative NEGATIVE 03/31/24 10:54: Influenza Type A Antigen Negative For Type A, Influenza Type B Antigen Negative For Type B, SARS-CoV-2 Antigen (Rapid) PRESUMPTIVE NEGATIVE, Group A Streptococcus Rapid negative Laboratory Tests Test 03/31/24 10:54 03/31/24 11:19 03/31/24 12:00 03/31/24 12:45 Influenza Type A Antigen Negative For Type A Influenza Type B Antigen Negative For Type B SARS-CoV-2 Antigen (Rapid) PRESUMPTIVE NEGATIVE Group A Streptococcus Rapid negative (NEGATIVE) White Blood Count 13.1 K/uL (4.8-10.8) H Red Blood Count 5.25 MIL/uL (4.00-5.50) Hemoglobin 7.8 g/dL (12.0-16.0) L Hematocrit 30.9 % (36-48) L Mean Corpuscular Volume 58.9 fL (79-99) L Mean Corpuscular Hemoglobin 14.9 pg (27.0-33.0) L Mean Corpuscular Hemoglobin Concent 25.2 g/dL (32.0-36.0) L Red Cell Distribution Width 19.4 % (11.0-15.5) H Platelet Count 379 K/uL (130-400) Mean Platelet Volume 9.5 fL (7.5-10.5) Immature Granulocyte % (Auto) 2.9 % (0-1) H Neutrophils (%) (Auto) 76.4 % (40.0-77.0) Lymphocytes (%) (Auto) 11.3 % (21.0-51.0) L Monocytes (%) (Auto) 7.7 % (3.0-13.0) Eosinophils (%) (Auto) 0.7 % (0.0-8.0) Basophils (%) (Auto) 1.0 % (0.0-5.0) Neutrophils # (Auto) 10.0 K/uL (1.8-7.7) H Lymphocytes # (Auto) 1.5 K/uL (1.0-4.8) Monocytes # (Auto) 1.0 K/uL (0.1-1.0) Eosinophils # (Auto) 0.09 K/uL (0.00-0.70) Basophils # (Auto) 0.13 K/uL (0.00-0.20) Absolute Immature Granulocyte (auto 0.38 K/uL (0-1) Nucleated Red Blood Cells 0.3 % (0.0-0.19) H Red Blood Cell Morphology See comments Reticulocyte Count (auto) 2.56953 % (0.42-2.23) H Immature Reticulocyte Fraction 36.60 % (0.18-0.48) H Prothrombin Time 11.5 SEC (9.6-11.6) Prothromb Time International Ratio 1.07 (0.85-1.15) Activated Partial Thromboplast Time 24.7 SEC (26.3-35.5) L D-Dimer Quantitative (PE/DVT) 674 ng/mL (0-500) *H Sodium Level 130 mmol/L (136-145) L Potassium Level 3.4 mmol/L (3.5-5.1) L Chloride Level 94 mmol/L (101-111) L Carbon Dioxide Level 34 mmol/L (21-32) H Blood Urea Nitrogen 10 mg/dL (7-18) Creatinine 0.6 mg/dL (0.5-1.0) Glomerular Filtration Rate Calc 115 mL/min (>90) Random Glucose 376 mg/dL (70-105) H Hemoglobin A1c 11.0 % (4.0-6.0) H Estimated Average Glucose (eAG) 269 mg/dL (70-126) H Total Calcium 8.6 mg/dL (8.5-10.1) Magnesium Level 1.80 mg/dL (1.80-2.40) Iron Level 8 mcg/dL (50-170) L Total Iron Binding Capacity 337 mcg/dL (250-450) Percent Iron Saturation 2.3 % (22-44) L Total Bilirubin 0.3 mg/dL (0.2-1.0) Direct Bilirubin 0.1 mg/dL (0.0-0.3) Aspartate Amino Transf (AST/SGOT) 12 U/L (10-37) Alanine Aminotransferase (ALT/SGPT) 12 U/L (12-78) Alkaline Phosphatase 97 U/L (50-136) Lactate Dehydrogenase 210 U/L (81-234) Troponin I High Sensitivity 133 ng/L (4-50) *H C-Reactive Protein, Quantitative 86.00 mg/L (0.5-3.0) H B-Type Natriuretic Peptide 109 pg/mL (0-100) H Total Protein 7.6 g/dL (6.0-8.3) Albumin 3.1 g/dL (3.5-5.0) L Vitamin B12 Level 1112 pg/mL (193-986) H Folic Acid (LAB) 19.00 ng/mL (2-20) Procalcitonin 0.09 ng/mL (0.05-0.5) Thyroid Stimulating Hormone (TSH) 0.64 uIU/mL (0.36-3.74) Serum Test, Qualitative NEGATIVE (NEGATIVE) Stool Occult Blood NEGATIVE (NEGATIVE) Urine Color LIGHT-YELLOW (YELLOW) Urine Appearance CLEAR (CLEAR) Urine pH 6.0 (5.0-8.0) Urine Specific [place] 1.040 (1.001-1.031) Urine Protein 30 mg/dL (NEGATIVE) H Urine Glucose (UA) >=1000 mg/dL (NEGATIVE) H Urine Ketones 100 mg/dL (NEGATIVE) H Urine Occult Blood NEGATIVE (NEGATIVE) Urine Nitrate NEGATIVE (NEGATIVE) Urine Bilirubin NEGATIVE mg/dL (NEGATIVE) Urine Urobilinogen 0.2 mg/dL (0.2-1.0) Urine Leukocyte Esterase NEGATIVE Kt/uL Urine RBC 2-5 /HPF (0-1) H Urine WBC 0-1 /HPF (0-1) Urine Squamous Epithelial Cells RARE /HPF (0-2) Urine Bacteria RARE /HPF (None Seen) Test 03/31/24 13:01 Blood Gas Specimen Type Arterial Arterial Blood pH 7.414 (7.350-7.450) Arterial Blood Partial Pressure CO2 40 mmHg (32-45) Arterial Blood Partial Pressure O2 58.8 mmHg (83.0-108.0) L Arterial Blood HCO3 24.8 mmol/L (21.0-28.0) Arterial Blood Oxygen Saturation 90.3 % (94.0-98.0) L Arterial Blood Base Excess 0.3 mmol/L (-2.0-3.0) Hemoglobin (Blood Gas) 9.2 g/dL (12.0-16.0) L Sodium (Blood Gas) 134 MMOL/L (136-145) L Bedside Potassium (Blood Gas) 3.9 MMOL/L (3.4-4.5) Bedside Chloride (Blood Gas) 97 MMOL/L (98-107) L Bedside Glucose (Blood Gas) 340 MG/DL (65-95) H Bedside Ionized Calcium (Blood Gas) 1.13 MMOL/L (1.15-1.33) L Bedside Lactic Acid (Blood Gas) 1.83 MMOL/L (0.36-0.75) H Blood Gas Temperature 37.0 CELSIUS (35.5-37.0) Blood Gas Vent Mode RA (ROOM AIR) FiO2 21.0 % Blood Gas Specimen Comment RRJESSE Lactic Acid Level 1.9 mmol/L (0.8-2.5) JAMI PINEDA MD Mar 31, 2024 14:16
[2024-03-31] MEDS: amLODIPine 5 MG TAB PO SCH (14:17)
[2024-03-31] MEDS: DOXYCYCLINE HYCLATE 100 MG TABLET PO SCH (14:17)
[2024-03-31] MEDS: INSULIN humuLIN R 100 UNIT/ML 3ML SQ ONE (14:18)
[2024-03-31] MEDS: SODIUM CHLORIDE 3% FOR INHALATION 4 ML/AMP VIAL.NEB IH ONE (14:29)
--- NOTE | 2024-03-31 14:38 | NUR ---
MEDICATION RECONCILIATION: NO MEDS W/PT.
[2024-03-31] MEDS: 0.9%NACL 1000ML 1,000 ML IV SCH (15:00)
[2024-03-31 15:14] LABS: AMPHET/METH SCREEN,URINE NEGATIVE (NEGATIVE); BARBITURATE SCREEN, URINE NEGATIVE (NEGATIVE); BENZODIAZEPINES SCREEN,URINE NEGATIVE (NEGATIVE); CANNABINOID SCREEN,URINE POSITIVE (NEGATIVE); COCAINE SCREEN,URINE NEGATIVE (NEGATIVE); OPIATE SCREEN,URINE NEGATIVE (NEGATIVE); PHENCYCLIDINE SCREEN,URINE NEGATIVE (NEGATIVE)
--- NOTE | 2024-03-31 15:19 | CONS ---
[facility] CARDIOLOGY CONSULTATION NOTE Date Patient Seen: Mar 31, 2024 Time of Visit: 15:17 Requesting Physician: elevated troponin, chest pain Reason for Consultation: Dr Cooper History of Present Illness: Patient is a 43-year-old female with past medical history of hypertension and type 2 diabetes mellitus, uncontrolled, has not been consistently on medications from his issues that she has had poor health care access. She presents to the complaints dyspnea, fevers, and malaise. Patient noted to anemic with a hemoglobin of 7.8 complaints heavy and long periods. Patient reports shortness of breath with dyspnea on exertion NYHA class three symptoms progressively worsening over the past few months. She also admits to two episodes of near-sy ncope over the past two weeks and dizziness. While she does admit to episodic chest discomfort, this is intermittent, not associated with exertion, with last episode one week ago. She also admits to nonproductive cough. Past Medical History: Menometrorrhagia type 2 diabetes mellitus, uncontrolled with hyperglycemia Hypertension Past Surgical History: History of ectopic and surgical removal of fallopian tube History of section x1 Family History: Family history of early coronary artery disease in her grandparents, mother and father as early as the 4th decade of age. Social History: She works as a care provider. She has been taking care of her son who he recently underwent surgery in [facility] for a torn ACL. Denies tobacco use Current Meds: Current Medications Medications Dose Ordered Sig/Emi Start Time Stop Time Status Last Admin Vancomycin HCl 1 each AD 03/31/24 13:00 04/14/24 12:59 Doxycycline Hyclate 100 mg Q12H 03/31/24 13:00 04/10/24 12:59 03/31/24 14:17 Pantoprazole Sodium 40 mg DAILY 04/01/24 09:00 05/01/24 08:59 Ipratropium [place] 0.5 mg Q6H 03/31/24 18:00 04/30/24 17:59 Acetaminophen 500 mg Q6H PRN 03/31/24 13:00 04/30/24 12:59 Cefepime HCl 2 gm Q12H 03/31/24 16:00 04/10/24 15:59 Ondansetron HCl 4 mg Q6H PRN 03/31/24 13:00 04/30/24 12:59 Potassium Chloride 100 ml @ 100 mls/hr AD PRN 03/31/24 13:00 04/30/24 12:59 Potassium Chloride 20 meq AD PRN 03/31/24 13:00 04/30/24 12:59 Potassium Chloride 20 meq AD PRN 03/31/24 13:00 04/30/24 12:59 Vancomycin HCl 500 ml @ 250 mls/hr ONCE ONCE 03/31/24 13:30 03/31/24 15:29 03/31/24 13:42 Insulin Human Regular INSULIN SLIDING SCAL... ACHS 03/31/24 16:30 04/30/24 16:29 Magnesium Sulfate 50 ml @ 0 mls/hr PROTOCOL 03/31/24 13:00 04/30/24 12:59 Folic Acid 1 mg DAILY 04/01/24 09:00 05/01/24 08:59 Vancomycin HCl 250 ml @ 125 mls/hr Q8H 03/31/24 21:30 04/10/24 21:29 Sodium Chloride 1,000 ml @ 75 mls/hr [id number] 03/31/24 13:30 04/30/24 13:29 Guaifenesin/ Dextromethorphan 10 ml Q6H PRN 03/31/24 13:30 04/30/24 13:29 Iron Sucrose 300 mg/Sodium Chloride 250 ml @ 83 mls/hr Q24H 03/31/24 14:00 04/30/24 13:59 Amlodipine Besylate 5 mg Q24H 03/31/24 14:30 04/30/24 14:29 03/31/24 14:17 Insulin Glargine 15 units HS 03/31/24 21:00 04/30/24 20:59 Polyethylene Glycol 17 gm DAILY 04/01/24 09:00 05/01/24 08:59 UNV Methylprednisolone Sodium Succinate 40 mg Q8H 03/31/24 15:30 04/30/24 15:29 UNV Review of Systems: CONST: Reports fevers and generalized fatigue EYES: [No recent vision problems.] ENT: [No congestion, ear pain, or sore throat.] C/V: Reports episode of chest discomfort. RESP: [Reports shortness of breath and cough GI: [No abdominal pain, nausea, vomiting, constipation, or diarrhea.] : [No incontinence or dysuria.] SKIN: [No rash.] NEURO: [No headache, focal numbness or weakness. Reports dizziness. PSYCH: [No depression or anxiety.] HEME: [Reports heavy menstrual periods. LYMPH: [No swollen glands.] Physical Examination: GENERAL: [No acute distress.] HEAD: [Normal with no signs of head trauma.] NECK: [Normal carotid upstrokes without bruits.] LUNGS: [Clear breath sounds bilaterally. There are right basilar rales one third of the way up the chest. No wheezes, or rhonchi.] HEART: [Normal rate and rhythm. Normal S1 and S2 without murmurs, gallop or rub .] VASC: [Peripheral pulses +2 bilaterally.] EXT: [No clubbing, cyanosis or edema.] SKIN: [No rashes or lesions noted.] NEURO: [Awake, alert, and oriented x3. No focal sensory or strength deficits noted.] Vital Signs (last 8hr) Date Time Temp Pulse Resp B/P (MAP) Pulse Ox O2 Delivery O2 Flow Rate FiO2 03/31/24 14:12 98.4 104 18 147/83 96 Nasal Cannula* 2 28 03/31/24 14:06 99 18 161/78 96 Nasal Cannula* 2 28 03/31/24 13:00 89 18 03/31/24 11:15 105 19 146/91 93 Room Air* 0 21 03/31/24 10:44 99.0 98 20 154/85 93 Room Air 0 Laboratory: [ ] Hematology Labs: Test 03/31/24 11:19 Range/Units White Blood Count 13.1 H 4.8-10.8 K/uL Red Blood Count 5.25 4.00-5.50 MIL/uL Hemoglobin 7.8 L 12.0-16.0 g/dL Hematocrit 30.9 L 36-48 % Mean Corpuscular Volume 58.9 L 79-99 fL Mean Corpuscular Hemoglobin 14.9 L 27.0-33.0 pg Mean Corpuscular Hemoglobin Concent 25.2 L 32.0-36.0 g/dL Red Cell Distribution Width 19.4 H 11.0-15.5 % Platelet Count 379 130-400 K/uL Mean Platelet Volume 9.5 7.5-10.5 fL Immature Granulocyte % (Auto) 2.9 H 0-1 % Neutrophils (%) (Auto) 76.4 40.0-77.0 % Lymphocytes (%) (Auto) 11.3 L 21.0-51.0 % Monocytes (%) (Auto) 7.7 3.0-13.0 % Eosinophils (%) (Auto) 0.7 0.0-8.0 % Basophils (%) (Auto) 1.0 0.0-5.0 % Neutrophils # (Auto) 10.0 H 1.8-7.7 K/uL Lymphocytes # (Auto) 1.5 1.0-4.8 K/uL Monocytes # (Auto) 1.0 0.1-1.0 K/uL Eosinophils # (Auto) 0.09 0.00-0.70 K/uL Basophils # (Auto) 0.13 0.00-0.20 K/uL Absolute Immature Granulocyte (auto 0.38 0-1 K/uL Nucleated Red Blood Cells 0.3 H 0.0-0.19 % Red Blood Cell Morphology See comments Erythrocyte Sedimentation Rate 32 H 0-20 MM/HR Reticulocyte Count (auto) 2.16873 H 0.42-2.23 % Immature Reticulocyte Fraction 36.60 H 0.18-0.48 % Chemistry Labs: Test 03/31/24 13:01 03/31/24 11:19 Range/Units Lactic Acid Level 1.9 0.8-2.5 mmol/L Sodium Level 130 L 136-145 mmol/L Potassium Level 3.4 L 3.5-5.1 mmol/L Chloride Level 94 L 101-111 mmol/L Carbon Dioxide Level 34 H 21-32 mmol/L Blood Urea Nitrogen 10 7-18 mg/dL Creatinine 0.6 0.5-1.0 mg/dL Glomerular Filtration Rate Calc 115 >90 mL/min Random Glucose 376 H 70-105 mg/dL Hemoglobin A1c 11.0 H 4.0-6.0 % Estimated Average Glucose (eAG) 269 H 70-126 mg/dL Total Calcium 8.6 8.5-10.1 mg/dL Magnesium Level 1.80 1.80-2.40 mg/dL Iron Level 8 L 50-170 mcg/dL Total Iron Binding Capacity 337 250-450 mcg/dL Percent Iron Saturation 2.3 L 22-44 % Total Bilirubin 0.3 0.2-1.0 mg/dL Direct Bilirubin 0.1 0.0-0.3 mg/dL Aspartate Amino Transf (AST/SGOT) 12 10-37 U/L Alanine Aminotransferase (ALT/SGPT) 12 12-78 U/L Alkaline Phosphatase 97 50-136 U/L Lactate Dehydrogenase 210 81-234 U/L Troponin I High Sensitivity 133 *H 4-50 ng/L C-Reactive Protein, Quantitative 86.00 H 0.5-3.0 mg/L B-Type Natriuretic Peptide 109 H 0-100 pg/mL Total Protein 7.6 6.0-8.3 g/dL Albumin 3.1 L 3.5-5.0 g/dL Vitamin B12 Level 1112 H 193-986 pg/mL Folic Acid (LAB) 19.00 2-20 ng/mL Procalcitonin 0.09 0.05-0.5 ng/mL Thyroid Stimulating Hormone (TSH) 0.64 0.36-3.74 uIU/mL Serum Test, Qualitative NEGATIVE NEGATIVE Coagulation Labs: Test 03/31/24 11:19 Range/Units Prothrombin Time 11.5 9.6-11.6 SEC Prothromb Time International Ratio 1.07 0.85-1.15 Activated Partial Thromboplast Time 24.7 L 26.3-35.5 SEC D-Dimer Quantitative (PE/DVT) 674 *H 0-500 ng/mL Diagnostics / Radiology: REASON: SOB ORDERING PHYSICIAN: SARAH MIMS MD PROCEDURE: CXR1VW - CHEST 1VW CHEST 1VW REASON: SOB COMPARISON: None. FINDINGS: There is left lower lobe infiltrate consistent with pneumonia. Lungs are otherwise clear. Heart, mediastinum and bony thorax appear unremarkable. IMPRESSION: 1. Left lower lobe pneumonia. DICTATED BY: VERONICA CHAMBERS MD DATE: 03/31/24 1141 Assessment: Elevated troponin Community-acquired pneumonia Microcytic anemia Menometrorrhagia Type 2 diabetes mellitus, uncontrolled with hemoglobin A1c of 11% Lack of consistent healthcare access Plan: We will obtain a 2nd troponin Keep the patient on continuous telemetry monitoring We will obtain transthoracic echocardiogram Even if no significant trend in her troponin or significant abnormality on echocardiogram, given her risk factors (underlying hypertension, uncontrolled type 2 diabetes mellitus and family history of early coronary artery disease), would recommend additional evaluation as an outpatient by way of coronary CT angiography KEY BOWERS DO Mar 31, 2024 15:19
--- NOTE | 2024-03-31 15:23 | CONS ---
[facility] CONSULTATION NOTE Date Patient Seen: Mar 31, 2024 Time of Visit: 15:06 Supervising Physician: Dr. Yrn Cordero Reason for Consultation: Pneumonia Primary Care Physician: No family doctor Outpatient Specialists: NA Inpatient Consults: Dr. Cordero PROBLEM LIST: Acute hypoxic respiratory failure Community-acquired pneumonia Hyperglycemia in the setting of type 2 diabetes mellitus, which is uncontrolled with hemoglobin A1c 11.0 Substance abuse: Marijuana Microcytic normochromic anemia- iron deficient Leukocytosis with no left shift Acute likely on chronic congestive heart failure with unknown ejection fraction Obesity BMI of 40 History of obesity, current marijuana use, hypertension, diabetes mellitus HPI: This is a 43 year-old female with past medical history of obesity, current marijuana use, hypertension, diabetes mellitus, and ectopic who came to the hospital with complaint of shortness of breaths and cough. [facility] is consulted for pneumonia. According to the patient, she has been having shortness of breath for two months now. Patient stated that even with talking she would be out of breath. She also has dyspnea on exertion. Patient has been trying to use inhaler that his son received from the nephew, although she did not know what it was. This has not worked. Patient has noticed that starting last week she had fever. On Wednesday she had dry cough and this has worsened after she was at the hospital to care for her son who had injured knee undergoing surgery [facility]. Patient admits that she is using marijuana with last use being last week. 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 She denies alcohol abuse, illicit drug use other than weed and denies cigarette smoking. PAST MEDICAL HX: Diabetes mellitus Hypertension Obesity PAST SURGICAL HX: Ectopic with bleeding SOCIAL HISTORY: Admits smoking weed. Denies cigarette/ tobacco smoking Denies ETOH abuse Denies illicit drug use Has seven children Lives with three, is in senior care for five years and will be out this coming May. Coded Allergies: No Known Drug Allergies (Unverified Allergy, Unknown, 03/31/24) REVIEW OF SYSTEMS: 12 point ROS reviewed with patient. Pertinent positives mentioned above. Otherwise negative. PHYSICAL EXAM: GENERAL: alert, weak, awake oriented x 3 HEENT: EOMI, Sclera non icteric, moist mucosa NECK: Supple, no JVD, trachea midline LUNGS: Rales throughout, respiratory wheezing. HEART: Regular rate and rhythm. Normal S1 and S2, without murmurs ABD: Abdomen soft, nontender. Bowel sounds present EXT: No clubbing cyanosis or edema NEURO: Alert and oriented to person, follows commands Vital Signs (last 8hr) Date Time Temp Pulse Resp B/P (MAP) Pulse Ox O2 Delivery O2 Flow Rate FiO2 03/31/24 14:12 98.4 104 18 147/83 96 Nasal Cannula* 2 28 03/31/24 14:06 99 18 161/78 96 Nasal Cannula* 2 03/31/24 13:00 89 18 03/31/24 11:15 105 19 146/91 93 Room Air* 0 21 03/31/24 10:44 99.0 98 20 154/85 93 Room Air 0 LABS: Hematology Labs: Test 03/31/24 11:19 Range/Units White Blood Count 13.1 H 4.8-10.8 K/uL Red Blood Count 5.25 4.00-5.50 MIL/uL Hemoglobin 7.8 L 12.0-16.0 g/dL Hematocrit 30.9 L 36-48 % Mean Corpuscular Volume 58.9 L 79-99 fL Mean Corpuscular Hemoglobin 14.9 L 27.0-33.0 pg Mean Corpuscular Hemoglobin Concent 25.2 L 32.0-36.0 g/dL Red Cell Distribution Width 19.4 H 11.0-15.5 % Platelet Count 379 130-400 K/uL Mean Platelet Volume 9.5 7.5-10.5 fL Immature Granulocyte % (Auto) 2.9 H 0-1 % Neutrophils (%) (Auto) 76.4 40.0-77.0 % Lymphocytes (%) (Auto) 11.3 L 21.0-51.0 % Monocytes (%) (Auto) 7.7 3.0-13.0 % Eosinophils (%) (Auto) 0.7 0.0-8.0 % Basophils (%) (Auto) 1.0 0.0-5.0 % Neutrophils # (Auto) 10.0 H 1.8-7.7 K/uL Lymphocytes # (Auto) 1.5 1.0-4.8 K/uL Monocytes # (Auto) 1.0 0.1-1.0 K/uL Eosinophils # (Auto) 0.09 0.00-0.70 K/uL Basophils # (Auto) 0.13 0.00-0.20 K/uL Absolute Immature Granulocyte (auto 0.38 0-1 K/uL Nucleated Red Blood Cells 0.3 H 0.0-0.19 % Red Blood Cell Morphology See comments Erythrocyte Sedimentation Rate 32 H 0-20 MM/HR Reticulocyte Count (auto) 2.58708 H 0.42-2.23 % Immature Reticulocyte Fraction 36.60 H 0.18-0.48 % Chemistry Labs: Test 03/31/24 13:01 03/31/24 11:19 Range/Units Lactic Acid Level 1.9 0.8-2.5 mmol/L Sodium Level 130 L 136-145 mmol/L Potassium Level 3.4 L 3.5-5.1 mmol/L Chloride Level 94 L 101-111 mmol/L Carbon Dioxide Level 34 H 21-32 mmol/L Blood Urea Nitrogen 10 7-18 mg/dL Creatinine 0.6 0.5-1.0 mg/dL Glomerular Filtration Rate Calc 115 >90 mL/min Random Glucose 376 H 70-105 mg/dL Hemoglobin A1c 11.0 H 4.0-6.0 % Estimated Average Glucose (eAG) 269 H 70-126 mg/dL Total Calcium 8.6 8.5-10.1 mg/dL Magnesium Level 1.80 1.80-2.40 mg/dL Iron Level 8 L 50-170 mcg/dL Total Iron Binding Capacity 337 250-450 mcg/dL Percent Iron Saturation 2.3 L 22-44 % Total Bilirubin 0.3 0.2-1.0 mg/dL Direct Bilirubin 0.1 0.0-0.3 mg/dL Aspartate Amino Transf (AST/SGOT) 12 10-37 U/L Alanine Aminotransferase (ALT/SGPT) 12 12-78 U/L Alkaline Phosphatase 97 50-136 U/L Lactate Dehydrogenase 210 81-234 U/L Troponin I High Sensitivity 133 *H 4-50 ng/L C-Reactive Protein, Quantitative 86.00 H 0.5-3.0 mg/L B-Type Natriuretic Peptide 109 H 0-100 pg/mL Total Protein 7.6 6.0-8.3 g/dL Albumin 3.1 L 3.5-5.0 g/dL Vitamin B12 Level 1112 H 193-986 pg/mL Folic Acid (LAB) 19.00 2-20 ng/mL Procalcitonin 0.09 0.05-0.5 ng/mL Thyroid Stimulating Hormone (TSH) 0.64 0.36-3.74 uIU/mL Serum Test, Qualitative NEGATIVE NEGATIVE Coagulation Labs: Test 03/31/24 11:19 Range/Units Prothrombin Time 11.5 9.6-11.6 SEC Prothromb Time International Ratio 1.07 0.85-1.15 Activated Partial Thromboplast Time 24.7 L 26.3-35.5 SEC D-Dimer Quantitative (PE/DVT) 674 *H 0-500 ng/mL DIAGNOSTICS / RADIOLOGY RESULTS: CHEST 1VW REASON: SOB COMPARISON: None. FINDINGS: There is left lower lobe infiltrate consistent with pneumonia. Lungs are otherwise clear. Heart, mediastinum and bony thorax appear unremarkable. IMPRESSION: 1. Left lower lobe pneumonia. PLAN NEURO: Minimize central acting medications as possible. Maintain fall precautions, adequate lighting during the day PULMONARY: Supplemental 02 as needed. Maintain aspiration precautions at all times Oxygen supplementation CP overnight Antibiotic for community-acquired, Tapering steroids CARDIOVASCULAR: Follow hemodynamics. Vital signs per facility protocol Trend BNP Echocardiogram GI & NUTRITION: Continue with nutritional support. Continue stool softeners and laxatives as needed. Bowel regimen KIDNEYS & ELECTROLYTES: Strict monitoring of intake, output and overall fluid balance. Avoid nephrotoxic medications to the extent possible. Medications to be dosed according to renal function. Monitor electrolytes and replace as needed Iron panel is low, ferrous sulfate ENDOCRINE: Maintain blood glucose between 100-180 at all times. Hypoglycemia protocol in place Insulin sliding scale Hemoglobin A1c is 11, patient will need long-acting insulin. Diabetic education Weight management INFECTIOUS DISEASE: Trend temperature, WBC and procalcitonin level Follow cultures, deescalate antibiotics as soon as possible. Panculture if new onset fever ONCOLOGY/HEMATOLOGY/COAGULATION: Monitor for s/s of bleeding Monitor hemoglobin, coagulation studies as needed SKIN: Pressure ulcer prevention per facility protocol Specialty mattress ORTHO/REHAB: Continue PT/OT Prophylaxis: Continue GI and DVT prophylaxis Code Status: Full Resuscitation Disposition: TBD Other: Social for Substance abuse cessation Total patient care time exceeds 35 minutes excluding all procedures. SUKI GONSALEZ [facility] Mar 31, 2024 15:23
[2024-03-31] MEDS ORDERED: INSULIN humuLIN R 100 UNIT/ML 3ML SQ SCH (16:30)
[2024-03-31] MEDS ORDERED: COMPOUND IV REFRIGERATED 1 EACH IVSOLN MISC PRN (16:30)
[2024-03-31] MEDS ORDERED: COMPOUND IV MISC 1 EACH IVSOLN MISC PRN (16:30)
[2024-03-31 16:34] LABS: CHOLESTEROL 112 mg/dL (<200); HDL CHOLESTEROL 25 mg/dL (35-85); LDL DIRECT 67 mg/dL (0-99); TRIGLYCERIDES 135 mg/dL (30-200)
[2024-03-31] MEDS: ceFEPime HCL 2 GM VIAL IVPB SCH (16:58)
[2024-03-31] MEDS: INSULIN humuLIN R 100 UNIT/ML 3ML SQ SCH (17:01)
--- NOTE | 2024-03-31 17:30 | HMCIMG ---
ULTRASOUND VENOUS DOPPLER, BILATERAL LOWER EXTREMITIES INDICATION: Bilateral lower extremity pain and swelling TECHNIQUE: Routine grayscale and color Doppler ultrasound of the bilateral lower extremity veins performed. COMPARISON: No priors. FINDINGS: The demonstrated veins of the bilateral lower extremity including the common femoral vein, femoral vein, and popliteal vein are associated with normal compressibility, augmentation, and flow. Normal respiratory variation was identified. No evidence for echogenic intraluminal thrombus formation. IMPRESSION: No sonographic evidence for deep venous thrombosis within the bilateral lower extremity veins.
[2024-03-31 17:44] LABS: CREATININE,URINE RANDOM 44.56 mg/dL (30-135); PROTEIN,URINE RANDOM 94.4 mg/dL (0-11.9)
--- NOTE | 2024-03-31 18:19 | HMCIMG ---
ULTRASOUND OF THE PELVIS ULTRASOUND ABD VASCULAR LIMITED INDICATION: Pelvic pain COMPARISONS: None TECHNIQUE: Transabdominal real-time sonographic images were acquired earlier, and subsequently made available for review. FINDINGS/IMPRESSION: Examination is limited by patient body habitus and extensive overlying bowel gas. The uterus measures 10.0 x 5.2 x 7.0 cm. Endometrium and the ovaries were not well-demonstrated, but no abnormal adnexal mass detected. No free pelvic fluid demonstrated.
[2024-03-31] MEDS: IpraTROPium 0.5 MG/2.5 ML INH IH SCH (18:44)
[2024-03-31] MEDS: Solu-medROL 40MG VIAL IVP SCH (19:26)
[2024-03-31] MEDS: PoTASSium chl 10% ELIXIR 20MEQ 20 MEQ/15 ML UDCUP PO PRN (19:26)
[2024-03-31] MEDS ORDERED: MAGNESIUM 2GM PREMIX 50ML 50 ML IV PRN (19:30)
[2024-03-31 19:57] LABS: HEMATOCRIT 29.6 % (36-48)
[2024-03-31 20:01] LABS: CREATINE KINASE, TOTAL 52 U/L (21-232)
[2024-03-31] MEDS: INSULIN GLARgine 100 UNITS/ML 10 ML VIAL SQ SCH (20:44)
[2024-03-31] MEDS ORDERED: INSULIN GLARgine 100 UNITS/ML 10 ML VIAL SQ SCH (21:00)
[2024-03-31] MEDS ORDERED: VANCOMYCIN 1G/250ML KIT 250 ML IV SCH (21:30)
[2024-03-31] MEDS: VANCOMYCIN 1G/250ML KIT 250 ML IV SCH (23:36)
[2024-04-01] VITALS (16 sets, daily range): BP systolic 112–157; BP diastolic 50–89; PULSE 73–100; RESP 16–20; TEMP 98.3–98.6; O2SAT 95–97
[2024-04-01] MEDS: SODIUM CHLORIDE FOR INHALATION 3 ML VIAL.NEB. IH ONE (03:34)
[2024-04-01] MEDS: RACEPINEPHRINE HCL 2.25% 0.5 ML NEB SOLN NEB PRN (03:34)
[2024-04-01 04:25] LABS: BASOPHILS # (AUTO) 0.13 K/uL (0.00-0.20); BASOPHILS % (AUTO) 0.9 % (0.0-5.0); EOSINOPHILS # (AUTO) 0.03 K/uL (0.00-0.70); EOSINOPHILS % (AUTO) 0.2 % (0.0-8.0); HEMATOCRIT 32.1 % (36-48); IMMATURE GRANULOCYTE ABSOLUTE 0.72 K/uL (0-1); LYMPHOCYTES # (AUTO) 1.7 K/uL (1.0-4.8); LYMPHOCYTES % (AUTO) 11.3 % (21.0-51.0); MEAN CORPUSCULAR HEMOGLOBIN 14.3 pg (27.0-33.0); MEAN CORPUSCULAR VOLUME 59.7 fL (79-99); MONOCYTES # (AUTO) 0.4 K/uL (0.1-1.0); MONOCYTES % (AUTO) 2.7 % (3.0-13.0); NEUTROPHILS # (AUTO) 12.1 K/uL (1.8-7.7); NEUTROPHILS % (AUTO) 80.1 % (40.0-77.0); NUCLEATED RED BLOOD CELLS 0.3 % (0.0-0.19); PLATELET COUNT (AUTO) 443 K/uL (130-400); RED BLOOD CELL COUNT(AUTO) 5.38 MIL/uL (4.00-5.50); RED CELL DISTRIBUTION WIDTH 19.6 % (11.0-15.5); WHITE BLOOD COUNT (AUTO) 15.1 K/uL (4.8-10.8)
[2024-04-01 04:54] LABS: CREATININE 0.6 mg/dL (0.5-1.0); POTASSIUM 4.1 mmol/L (3.5-5.1)
--- NOTE | 2024-04-01 05:30 | NUR ---
Stridor episodes Notified [facility] [employer] that pt had 1x stridor episode while awake watching TV around 6pm. Dayshift nurse reported blue lips and visible difficulty breathing. Pt stated she felt her "throat closing" and that she has been having these episodes at home intermittently. RT was notified and gave pt breathing treatment but pt recovered on own. BIS on-call was notified by [email or web address] and a PRN 1x treatment was ordered if another episode occurs. Pt had 1x stridor episode tonight after using RR and racepinephrine was given by RT. Pt recovered quickly before treatment. Pt denies difficulty swallowing outside of these episodes. She did say again that she felt her throat closed. Pt could not speak during the short episode. No medication was running or given prior. She does desat to 80s off of oxygen and does not use home O2. Per [employer], chest CT and neck CT w/o contrast to be ordered in AM to assess. Pt currently in bed without distress and denies any difficulty breathing.
--- NOTE | 2024-04-01 08:33 | HMCIMG ---
CHEST 1VW HISTORY: Pneumonia COMPARISON: 03/31/2024 FINDINGS: A frontal projection of the chest was obtained. Mild bilateral pulmonary infiltrates are seen may be related to mild pulmonary vascular congestion with possible superimposed pneumonitis. The heart is borderline enlarged. Degenerative changes are seen. No evidence of aortic calcification is seen. IMPRESSION: 1. Mild bilateral pulmonary infiltrates are seen may be related to mild pulmonary vascular congestion with possible superimposed pneumonitis.
[2024-04-01 08:49] LABS: HIV 1&2 ANTIBODY Non-Reactive (Negative); HIV-1 p24 Antigen Non-Reactive (Negative)
[2024-04-01] MEDS: INSULIN GLARgine 100 UNITS/ML 10 ML VIAL SQ SCH (09:00)
[2024-04-01] MEDS ORDERED: IRON sUCROse COMPLEX 300 MG in 0.9% NACL 250ML 250 ML IV SCH (09:00)
[2024-04-01] MEDS: polyETHYLene GLYCol 3350 17 GM POWD.PACK PO SCH (09:05)
[2024-04-01] MEDS: PANTOPrazole 40 MG/VIAL IVP SCH (09:05)
[2024-04-01] MEDS: amLODIPine 5 MG TAB PO SCH (09:06)
[2024-04-01] MEDS: FOLic ACID 1 MG TABLET PO SCH (09:06)
--- NOTE | 2024-04-01 09:06 | PN ---
43-year-old female with history of uncontrolled type 2 diabetes mellitus, hypertension who presented to the ER with chief complaint of shortness of breath. Symptoms of shortness of breath have been ongoing for the past several months and has progressively worsened over the past one week. She has noticed subjective fevers, chills and malaise over the last several days. He has been having dry cough as well. She reports having dyspnea on exertion with minimal activities. She also reports having PND and orthopnea. Denies previous history of cardiac or pulmonary comorbidities. She has not been able to follow up with a physician regularly as outpatient due to issues with medical insurance. Also reports having history of heavy periods which has been ongoing for the past five years. Reports having heavy periods for three weeks where she passes blood clots as well. Denies noticing hematemesis, hematochezia, or melena. Denies hemoptysis or hematuria. Denies history of bleeding issues. Reports that she needed blood transfusion about 20 years ago due to an . She has had nine previous pregnancies with seven kids. Currently denies active smoking or alcohol consumption. 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 She was visiting him in the hospital yesterday. On presentation to the hospital, patient was noted to be tachycardic with heart rate of 98, T-max of 99.0 F and blood pressure of 146/91. [place] [address], hemoglobin of 7.8, MCV of 59, platelet count of [id number]. CMP remarkable for corrected sodium of 137, potassium 3.4, creatinine 0.6, blood glucose of 376, cardiac panel of 133, BUN of 109. Chest x-ray showed left lower lobe infiltrate concerning for pneumonia. Patient will be admitted for further management of acute hypoxemic respiratory failure, developing left lower lobe pneumonia, severe iron deficiency anemia with history of menorrhagia, demand ischemia . Patient will be admitted to cardiac telemetry floor and will be monitored closely. REVIEW OF SYSTEMS CONSTITUTIONAL: Fatigue, malaise, asthenia NEUROLOGICAL: Denies headache, amaurosis fugax, motor weakness, sensory deficit, vertigo/spinning sensation, gait abnormalities, or tremors. ENT: No hearing loss, otalgia, otorrhea, rhinitis, rhinorrhea, hoarseness, or sore throat. CARDIOVASCULAR: History of intermittent chest pain as outpatient PULMONARY: Shortness of breath with phlegm, dyspnea on exertion, PND, orthopnea SLEEP: Denies morning headaches, daytime somnolence or napping. Denies difficulty falling asleep, staying asleep, waking from sleep. Denies knowledge of snoring. GASTROINTESTINAL: Denies any type of dysphagia to either liquids or solids. Denies nausea, vomiting, pyrosis, early satiety, abdominal pain, diarrhea, constipation, or changes in stool consistency or caliber. Denies coffee-ground emesis, hematemesis, hematochezia, or melanotic stools. GENITOURINARY: Denies frequency, urgency, nocturia, hematuria or incontinence (Storage/Irritative symptoms.) Low urinary stream, straining to void, urinary intermittency or hesitancy, splitting of the voiding stream, terminal dribbling. ENDOCRINOLOGIC: Denies polyuria, polydipsia, polyphagia or heat/cold intolerances. HEMATOLOGIC: Denies thrombophilia/previous clots, or coagulopathy/bleeding disorders. ONCOLOGIC: Denies personal history of malignancy. DERMATOLOGIC: Denies rashes or pruritus. PSYCHIATRIC: Denies any suicidal or homicidal ideation. Denies hallucinations. PAST MEDICAL HISTORY: History of hypertension and poorly controlled type 2 diabetes mellitus, patient reports having trouble affording antihyperglycemic medications previously due to issues with her medical insurance, she has not been taking anti hypertensive therapy recently PAST SURGICAL HISTORY: History of tubal ligation, history of C-sections PAST SOCIAL HISTORY: Currently denies active smoking or alcohol consumption, prior to getting ill, patient is independent with her ADLs and IADLs, currently works as a care provider FAMILY HISTORY: Family history of heart disease, hypertension, and diabetes in father and mother Allergies: Patient denies any known drug allergies Medications: Patient will be bringing home medication list to be reconciled and updated Coded Allergies: No Known Drug Allergies (Unverified Allergy, Unknown, 03/31/24) PHYSICAL EXAM GENERAL APPEARANCE: The patient is awake, alert, and oriented, in no acute cardiopulmonary distress. NEUROLOGICAL: Cranial nerves II-XII grossly intact. Motor is 5/5 in bilateral upper and lower extremities proximal to distal. No sensory deficits. HEENT: Face is symmetric. Pupils are equal and reactive. Extraocular movements are intact. NECK: Supple. No JVD. No thyromegaly. No submental, submandibular, pre- /postauricular, occipital or supraclavicular lymphadenopathy. CHEST: Normal chest expansion. No Telemetry. LUNGS: Absence of any rales, rhonchi or any wheezing. CARDIOVASCULAR: Regular. S1 and S2 normal. No appreciable rubs, murmurs or gallops. ABDOMEN: Soft, nontender, and nondistended. There is no rebound, voluntary guarding, or rigidity. : Deferred. No Berg. EXTREMITIES: Non-edematous and not cyanotic. No clubbing. Good capillary refill. SKIN: No skin breakdown. 43-year-old female with history of uncontrolled type 2 diabetes mellitus, hypertension who presented to the ER with chief complaint of shortness of breath. Symptoms of shortness of breath have been ongoing for the past several months and has progressively worsened over the past one week. She has noticed subjective fevers, chills and malaise over the last several days. He has been having dry cough as well. She reports having dyspnea on exertion with minimal activities. She also reports having PND and orthopnea. Denies previous history of cardiac or pulmonary comorbidities. She has not been able to follow up with a physician regularly as outpatient due to issues with medical insurance. Also reports having history of heavy periods which has been ongoing for the past five years. Reports having heavy periods for three weeks where she passes blood clots as well. Denies noticing hematemesis, hematochezia, or melena. Denies hemoptysis or hematuria. Denies history of bleeding issues. Reports that she needed blood transfusion about 20 years ago due to an . She has had nine previous pregnancies with seven kids. Currently denies active smoking or alcohol consumption. 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 She was visiting him in the hospital yesterday. On presentation to the hospital, patient was noted to be tachycardic with heart rate of 98, T-max of 99.0 F and blood pressure of 146/91. Labs [place] [address], hemoglobin of 7.8, MCV of 59, platelet count of 308284. CMP remarkable for corrected sodium of 137, potassium 3.4, creatinine 0.6, blood glucose of 376, cardiac panel of 133, BUN of 109. Chest x-ray showed left lower lobe infiltrate concerning for pneumonia. Patient was started on antibiotic treatment. Patient was found to have severe anemia with iron deficiency anemia.Her anemia could be multifactorial which could be due to hemolytic anemia and iron deficiency anemia at the same time. PHYSICAL EXAM GENERAL APPEARANCE: The patient is awake, alert, and oriented, in no acute cardiopulmonary distress. NEUROLOGICAL: Cranial nerves II-XII grossly intact. Motor is 5/5 in bilateral upper and lower extremities proximal to distal. No sensory deficits. HEENT: Face is symmetric. Pupils are equal and reactive. Extraocular movements are intact. NECK: Supple. No JVD. No thyromegaly. No submental, submandibular, pre- /postauricular, occipital or supraclavicular lymphadenopathy. CHEST: Normal chest expansion. No Telemetry. LUNGS: Absence of any rales, rhonchi or any wheezing. CARDIOVASCULAR: Regular. S1 and S2 normal. No appreciable rubs, murmurs or gallops. ABDOMEN: Soft, nontender, and nondistended. There is no rebound, voluntary guarding, or rigidity. : Deferred. No Berg. EXTREMITIES: Non-edematous and not cyanotic. No clubbing. Good capillary refill. SKIN: No skin breakdown. Assessment 1. Anemia which look like multifactorial including iron deficiency anemia, possibility of hemolytic anemia. 2. Left lower lobe community-acquired pneumonia 3. Leukocytosis 4. Reactive thrombocytosis 5. Uncontrolled diabetes mellitus 6. Vaginal bleeding for few years. With seems the patient was seen by HOME DEMONSTRATION AGENT and there was a plan for surgery to be done for this patient. Plan 1. Peripheral blood smear showed red blood cells to be normocytic normochromic. There was increased polychromasia cell with consistent increased reticulocyte count. This patient has not taken oral iron. So this patient could have hemolysis. There was no fragment cell or schistocyte. There is no teardrop cell. There is no rouleaux phenomena. There is no pelger-Huet cell. White blood cell with no blasts. White cell with increased bands and neutrophil which could be consistent with infection. Manual platelet count increased significantly. It is around 600 K. Most likely due to iron deficiency anemia and infection. 2. There was hypersegmented neutrophils. This patient to be started on folic acid 1 mg p.o. daily and vitamin B12 1000 mcg p.o. daily. 3. Direct Florecita test was negative. 4. Iron study is low this patient could be started on IV iron today. 5. No need for blood product transfusion 6. This patient need to be seen by HOME DEMONSTRATION AGENT. Patient have ultrasound to the pelvis. Will follow-up closely. Vitals/Labs Vital Signs Date Time Temp Pulse Resp B/P (MAP) Pulse Ox O2 Delivery O2 Flow Rate FiO2 04/01/24 07:54 98.6 82 18 136/78 95 Room Air 04/01/24 03:05 3.0 03/31/24 20:20 32 Laboratory Tests 03/31/24 11:19 03/31/24 19:20 04/01/24 03:59 Medications Current Medications Loratadine 10 mg ONCE ONCE PO Last administered on 03/31/24at 11:20; Start 03/31/24 at 11:30; Stop 03/31/24 at 11:31; Status DC Insulin Human Regular 5 unit ONCE ONCE SQ Last administered on 03/31/24at 14:18; Start 03/31/24 at 12:00; Stop 03/31/24 at 12:04; Status DC Vancomycin HCl 1 gm ONCE ONCE IV; Start 03/31/24 at 12:00; Stop 03/31/24 at 12:07; Status DC Piperacillin Sod/ Tazobactam Sod 3.375 gm ONCE ONCE IV Last administered on 03/31/24at 13:10; Start 03/31/24 at 12:00; Stop 03/31/24 at 12:07; Status DC Pantoprazole Sodium 80 mg ONCE ONCE IVP Last administered on 03/31/24at 13:10; Start 03/31/24 at 12:30; Stop 03/31/24 at 12:31; Status DC Ipratropium [place] 0.5 MG ONCE ONCE IH Last administered on 03/31/24at 13:10; Start 03/31/24 at 12:30; Stop 03/31/24 at 12:31; Status DC Budesonide 0.5 mg STK-MED ONCE IH Last administered on 03/31/24at 13:12; Start 03/31/24 at 12:29; Stop 03/31/24 at 12:29; Status DC Vancomycin HCl 1 each AD IV; Start 03/31/24 at 13:00; Stop 04/14/24 at 12:59 Doxycycline Hyclate 100 mg Q12H PO Last administered on 04/01/24at 01:13; Start 03/31/24 at 13:00; Stop 04/01/24 at 07:56; Status DC Pantoprazole Sodium 40 mg DAILY IVP; Start 04/01/24 at 09:00; Stop 05/01/24 at 08:59 Ipratropium [place] 0.5 mg Q6H IH Last administered on 04/01/24at 07:05; Start 03/31/24 at 18:00; Stop 04/30/24 at 17:59 Acetaminophen 500 mg Q6H PRN PO; Start 03/31/24 at 13:00; Stop 04/30/24 at 12:59 Cefepime HCl 2 gm Q12H IVPB Last administered on 04/01/24at 03:54; Start 03/31/24 at 16:00; Stop 04/10/24 at 15:59 Ondansetron HCl 4 mg Q6H PRN IVP; Start 03/31/24 at 13:00; Stop 04/30/24 at 12:59 Potassium Chloride 100 ml @ 100 mls/hr AD PRN IV; Start 03/31/24 at 13:00; Stop 04/30/24 at 12:59 Potassium Chloride 20 meq AD PRN PO Last administered on 03/31/24at 19:26; Start 03/31/24 at 13:00; Stop 04/30/24 at 12:59 Potassium Chloride 20 meq AD PRN PO; Start 03/31/24 at 13:00; Stop 04/30/24 at 12:59 Vancomycin HCl 500 ml @ 250 mls/hr ONCE ONCE IV Last administered on 03/31/24at 13:42; Start 03/31/24 at 13:30; Stop 03/31/24 at 15:29; Status DC Insulin Human Regular INSULIN SLIDING SCAL... ACHS SQ; Start 03/31/24 at 16:30; Stop 03/31/24 at 15:28; Status DC Magnesium Sulfate 50 ml @ 0 mls/hr PROTOCOL IV; Start 03/31/24 at 13:00; Stop 04/30/24 at 12:59 Folic Acid 1 mg DAILY PO; Start 04/01/24 at 09:00; Stop 05/01/24 at 08:59 Vancomycin HCl 250 ml @ 125 mls/hr Q8H IV; Start 03/31/24 at 21:30; Stop 03/31/24 at 19:24; Status DC Iron Sucrose 300 mg/Sodium Chloride 250 ml @ 83 mls/hr DAILY IV; Start 04/01/24 at 09:00; Stop 03/31/24 at 13:51; Status DC Sodium Chloride 1,000 ml @ 75 mls/hr [id number] IV Last administered on 03/31/24at 15:00; Start 03/31/24 at 13:30; Stop 04/30/24 at 13:29 Budesonide 0.5 mg STK-MED ONCE IH; Start 03/31/24 at 13:09; Stop 03/31/24 at 13:09; Status DC Budesonide 0.5 mg STK-MED ONCE IH Last administered on 03/31/24at 15:06; Start 03/31/24 at 13:12; Stop 03/31/24 at 13:12; Status DC Guaifenesin/ Dextromethorphan 10 ml Q6H PRN PO; Start 03/31/24 at 13:30; Stop 04/30/24 at 13:29 Iron Sucrose 300 mg/Sodium Chloride 250 ml @ 83 mls/hr Q24H IV; Start 03/31/24 at 14:00; Stop 03/31/24 at 16:05; Status DC Amlodipine Besylate 5 mg Q24H PO Last administered on 03/31/24at 14:17; Start 03/31/24 at 14:30; Stop 04/01/24 at 01:33; Status DC Sodium Chloride 4 ml STK-MED ONCE IH Last administered on 03/31/24at 14:29; Start 03/31/24 at 14:24; Stop 03/31/24 at 14:24; Status DC Insulin Glargine 15 units HS SQ; Start 03/31/24 at 21:00; Stop 03/31/24 at 15:28; Status DC Polyethylene Glycol 17 gm DAILY PO; Start 04/01/24 at 09:00; Stop 05/01/24 at 08:59 Methylprednisolone Sodium Succinate 40 mg Q8H IVP Last administered on 04/01/24at 01:12; Start 03/31/24 at 15:30; Stop 04/30/24 at 15:29 Insulin Glargine 20 units HS SQ Last administered on 03/31/24at 20:44; Start 03/31/24 at 21:00; Stop 04/01/24 at 07:53; Status DC Insulin Human Regular INSULIN SLIDING SCAL... ACHS SQ Last administered on 04/01/24at 05:55; Start 03/31/24 at 16:30; Stop 04/30/24 at 16:29 Iron Sucrose 300 mg/Sodium Chloride 250 ml @ 83 mls/hr DAILY IV; Start 04/01/24 at 09:00; Stop 04/03/24 at 12:01 Vancomycin HCl 250 ml @ 125 mls/hr Q8H IV Last administered on 04/01/24at 06:45; Start 03/31/24 at 23:30; Stop 04/10/24 at 23:29 Epinephrine 1 ml ONCE PRN NEB Last administered on 04/01/24at 03:34; Start 03/31/24 at 19:30; Stop 04/30/24 at 19:29 Magnesium Sulfate 50 ml @ 0 mls/hr PROTOCOL PRN IV; Start 03/31/24 at 19:30; Stop 03/31/24 at 19:30; Status DC Amlodipine Besylate 5 mg BID PO; Start 04/01/24 at 09:00; Stop 04/30/24 at 14:29 Sodium Chloride 3 ml STK-MED ONCE IH Last administered on 04/01/24at 03:34; Start 04/01/24 at 02:57; Stop 04/01/24 at 02:58; Status DC Insulin Glargine 20 units BID SQ; Start 04/01/24 at 08:00; Stop 04/30/24 at 20:59 JAMI PINEDA MD Apr 01, 2024 09:06
--- NOTE | 2024-04-01 09:10 | PN ---
[facility] CARDIOLOGY PROGRESS NOTE Cardiology progress note dictated for Lilliana Ontiveros MD Primary neon molder: Marci Roman MD Date Patient Seen: Apr 01, 2024 Interval History: The patient describes two episodes of laryngospasm that occurred last night. She continues with a dry cough. Telemetry demonstrating NSR/ST. The patient denies chest, palpitations, orthopnea, PND, dizziness, nausea, or vomiting. She admits to blood staining on her adult diaper. WBC has increased from 13.1 up to 15.1, hemoglobin of 7.7 with hematocrit 32.1 today. Chest x-ray with worsening right sided vascular congestion. She has bilateral rhonchi with expiratory wheezing to the right lung only. Physical Examination: GENERAL: No acute distress. On 2L of o2 via NC HEAD: Normal with no signs of head trauma. EYES: PERRLA, EOMI, conjunctiva and sclera normal. NECK: Supple without JVD. There is no tenderness, lymphadenopathy, or masses. No thyromegaly. Normal carotid upstrokes without bruits. LUNGS: Bilateral rhonchi with expiratory wheezing to the right lung only. HEART: Normal rate and rhythm. Normal S1 and S2 without murmurs, gallop or rub. VASC: Peripheral pulses +2 bilaterally. EXT: No clubbing, cyanosis or edema. NEURO: Awake, alert, and oriented x3. No focal neurological deficits noted. Laboratory: Hematology Labs: Test 04/01/24 03:59 03/31/24 11:19 Range/Units White Blood Count 15.1 H 4.8-10.8 K/uL Red Blood Count 5.38 4.00-5.50 MIL/uL Hemoglobin 7.7 L 12.0-16.0 g/dL Hematocrit 32.1 L 36-48 % Mean Corpuscular Volume 59.7 L 79-99 fL Mean Corpuscular Hemoglobin 14.3 L 27.0-33.0 pg Mean Corpuscular Hemoglobin Concent 24.0 L 32.0-36.0 g/dL Red Cell Distribution Width 19.6 H 11.0-15.5 % Platelet Count 443 H 130-400 K/uL Mean Platelet Volume 10.5 7.5-10.5 fL Immature Granulocyte % (Auto) 4.8 H 0-1 % Neutrophils (%) (Auto) 80.1 H 40.0-77.0 % Lymphocytes (%) (Auto) 11.3 L 21.0-51.0 % Monocytes (%) (Auto) 2.7 L 3.0-13.0 % Eosinophils (%) (Auto) 0.2 0.0-8.0 % Basophils (%) (Auto) 0.9 0.0-5.0 % Neutrophils # (Auto) 12.1 H 1.8-7.7 K/uL Lymphocytes # (Auto) 1.7 1.0-4.8 K/uL Monocytes # (Auto) 0.4 0.1-1.0 K/uL Eosinophils # (Auto) 0.03 0.00-0.70 K/uL Basophils # (Auto) 0.13 0.00-0.20 K/uL Absolute Immature Granulocyte (auto 0.72 0-1 K/uL Nucleated Red Blood Cells 0.3 H 0.0-0.19 % Red Blood Cell Morphology See comments Erythrocyte Sedimentation Rate 32 H 0-20 MM/HR Reticulocyte Count (auto) 2.84713 H 0.42-2.23 % Immature Reticulocyte Fraction 36.60 H 0.18-0.48 % Chemistry Labs: Test 04/01/24 05:15 04/01/24 03:59 03/31/24 13:01 03/31/24 11:19 Range/Units Whole Blood Glucose 359 H 70-110 MG/DL Bedside Glucose Comment Notified Nurse Sodium Level 138 136-145 mmol/L Potassium Level 4.1 3.5-5.1 mmol/L Chloride Level 99 L 101-111 mmol/L Carbon Dioxide Level 27 21-32 mmol/L Blood Urea Nitrogen 10 7-18 mg/dL Creatinine 0.6 0.5-1.0 mg/dL Glomerular Filtration Rate Calc 115 >90 mL/min Random Glucose 390 H 70-105 mg/dL Total Calcium 8.5 8.5-10.1 mg/dL Total Creatine Kinase 48 21-232 U/L Troponin I High Sensitivity 72.3 *H 4-50 ng/L Lactic Acid Level 1.9 0.8-2.5 mmol/L Hemoglobin A1c 11.0 H 4.0-6.0 % Estimated Average Glucose (eAG) 269 H 70-126 mg/dL Magnesium Level 1.80 1.80-2.40 mg/dL Iron Level 8 L 50-170 mcg/dL Total Iron Binding Capacity 337 250-450 mcg/dL Percent Iron Saturation 2.3 L 22-44 % Ferritin 9 L 15-150 ng/mL Total Bilirubin 0.3 0.2-1.0 mg/dL Direct Bilirubin 0.1 0.0-0.3 mg/dL Aspartate Amino Transf (AST/SGOT) 12 10-37 U/L Alanine Aminotransferase (ALT/SGPT) 12 12-78 U/L Alkaline Phosphatase 97 50-136 U/L Lactate Dehydrogenase 210 81-234 U/L C-Reactive Protein, Quantitative 86.00 H 0.5-3.0 mg/L B-Type Natriuretic Peptide 109 H 0-100 pg/mL Total Protein 7.6 6.0-8.3 g/dL Albumin 3.1 L 3.5-5.0 g/dL Triglycerides Level 135 30-200 mg/dL Cholesterol Level 112 <200 mg/dL LDL Cholesterol 67 0-99 mg/dL HDL Cholesterol 25 L 35-85 mg/dL Vitamin B12 Level 1112 H 193-986 pg/mL Folic Acid (LAB) 19.00 2-20 ng/mL Procalcitonin 0.09 0.05-0.5 ng/mL Thyroid Stimulating Hormone (TSH) 0.64 0.36-3.74 uIU/mL Serum Test, Qualitative NEGATIVE NEGATIVE Coagulation Labs: Test 03/31/24 11:19 Range/Units Prothrombin Time 11.5 9.6-11.6 SEC Prothromb Time International Ratio 1.07 0.85-1.15 Activated Partial Thromboplast Time 24.7 L 26.3-35.5 SEC D-Dimer Quantitative (PE/DVT) 674 *H 0-500 ng/mL Diagnostics / Radiology: Impression and Plan: Elevated troponin Community-acquired pneumonia Elevated D-Dimer Microcytic anemia HTN Menometrorrhagia Type 2 diabetes mellitus, uncontrolled with hemoglobin A1c of 11% Lack of consistent healthcare access Urine drug screen positive for marijuana Minimally elevated Troponin levels of 133, 100, and 72.3 in a flat pattern, not ACS Elevated D-dimer at 674, pending a CTA of the chest Two episodes of laryngospasm like events last night, pending an US of the neck -Keep the patient on continuous telemetry monitoring -Pending transthoracic echocardiogram to assess LV function, wall motion abnormalities or valvular pathology -Even if no significant trend in her troponin or significant abnormality on echocardiogram, given her risk factors (underlying hypertension, uncontrolled type 2 diabetes mellitus and family history of early coronary artery disease), would recommend additional evaluation as an outpatient by way of coronary CT angiography LEI EDWARDS [employer] Apr 01, 2024 09:10
[2024-04-01] MEDS: IRON sUCROse COMPLEX 300 MG in 0.9% NACL 250ML 250 ML IV SCH (09:17)
--- NOTE | 2024-04-01 09:51 | PN ---
[facility] PROGRESS NOTE Date of Service: Apr 01, 2024 Time of Service: 07:48 SUBJECTIVE: 03/31 patient seen at bedside, no acute events overnight. She was assessed by OBGYN today who recommends her to follow-up in his clinic where he will do an endometrial biopsy and a repeat pelvic ultrasound. Patient continues having episodes of stridor that have been occurring over the last year she also has a hoarse voice, this is concerning for a possible mass or neurologic issue involving the vocal cords. A CT of the head and neck has been ordered, we will follow up with the results. If it is not revealing a bronchoscopy may be more revealing. She has been afebrile, hemodynamically stable saturating well on 3 L nasal cannula. WBC increased from 13.1 up to 50.1 however she has been started on systemic steroids, hemoglobin improved from 7.4 up to 7.7, platelets elevated at 443, reticulocyte count elevated at 2.38 suggesting adequate hematopoiesis, blood sugar is elevated in the 300s, we will adjust her sliding scale and add glargine. Remainder of her labs are relatively unremarkable. REVIEW OF SYSTEMS CONSTITUTIONAL: Fatigue, malaise, asthenia NEUROLOGICAL: Denies headache, amaurosis fugax, motor weakness, sensory deficit, vertigo/spinning sensation, gait abnormalities, or tremors. ENT: No hearing loss, otalgia, otorrhea, rhinitis, rhinorrhea, hoarseness, or sore throat. CARDIOVASCULAR: History of intermittent chest pain as outpatient PULMONARY: Shortness of breath with phlegm, dyspnea on exertion, PND, orthopnea SLEEP: Denies morning headaches, daytime somnolence or napping. Denies difficulty falling asleep, staying asleep, waking from sleep. Denies knowledge of snoring. GASTROINTESTINAL: Denies any type of dysphagia to either liquids or solids. Denies nausea, vomiting, pyrosis, early satiety, abdominal pain, diarrhea, constipation, or changes in stool consistency or caliber. Denies coffee-ground e mesis, hematemesis, hematochezia, or melanotic stools. GENITOURINARY: Denies frequency, urgency, nocturia, hematuria or incontinence (Storage/Irritative symptoms.) Low urinary stream, straining to void, urinary intermittency or hesitancy, splitting of the voiding stream, terminal dribbling. ENDOCRINOLOGIC: Denies polyuria, polydipsia, polyphagia or heat/cold intolerances. HEMATOLOGIC: Denies thrombophilia/previous clots, or coagulopathy/bleeding disorders. ONCOLOGIC: Denies personal history of malignancy. DERMATOLOGIC: Denies rashes or pruritus. PSYCHIATRIC: Denies any suicidal or homicidal ideation. Denies hallucinations. PHYSICAL EXAM GENERAL APPEARANCE: The patient is awake, alert, and oriented, in no acute cardiopulmonary distress. NEUROLOGICAL: Cranial nerves II-XII grossly intact. Motor is 5/5 in bilateral upper and lower extremities proximal to distal. No sensory deficits. HEENT: Face is symmetric. Pupils are equal and reactive. Extraocular movements are intact. NECK: Supple. No JVD. No thyromegaly. No submental, submandibular, pre-/posta uricular, occipital or supraclavicular lymphadenopathy. CHEST: Normal chest expansion. No Telemetry. LUNGS: Crackles noted of the left lung base, no wheezes and rhonchi noted CARDIOVASCULAR: Regular. S1 and S2 normal. No appreciable rubs, murmurs or gallops. ABDOMEN: Soft, nontender, and nondistended. There is no rebound, voluntary guarding, or rigidity. : Deferred. No Berg. EXTREMITIES: no significant edema noted of the bilateral lower extremities SKIN: No skin breakdown. Vital Signs (last 8hr) Date Time Temp Pulse Resp B/P (MAP) Pulse Ox O2 Delivery O2 Flow Rate FiO2 04/01/24 07:06 95 18 04/01/24 03:05 98.2 100 18 157/81 92 Nasal Cannula 3.0 04/01/24 03:00 97 18 LABS: Laboratory: Test 04/01/24 05:15 04/01/24 03:59 03/31/24 13:01 03/31/24 12:45 Range/Units Whole Blood Glucose 359 H 70-110 MG/DL Bedside Glucose Comment Notified Nurse White Blood Count 15.1 H 4.8-10.8 K/uL Red Blood Count 5.38 4.00-5.50 MIL/uL Hemoglobin 7.7 L 12.0-16.0 g/dL Hematocrit 32.1 L 36-48 % Mean Corpuscular Volume 59.7 L 79-99 fL Mean Corpuscular Hemoglobin 14.3 L 27.0-33.0 pg Mean Corpuscular Hemoglobin Concent 24.0 L 32.0-36.0 g/dL Red Cell Distribution Width 19.6 H 11.0-15.5 % Platelet Count 443 H 130-400 K/uL Mean Platelet Volume 10.5 7.5-10.5 fL Immature Granulocyte % (Auto) 4.8 H 0-1 % Neutrophils (%) (Auto) 80.1 H 40.0-77.0 % Lymphocytes (%) (Auto) 11.3 L 21.0-51.0 % Monocytes (%) (Auto) 2.7 L 3.0-13.0 % Eosinophils (%) (Auto) 0.2 0.0-8.0 % Basophils (%) (Auto) 0.9 0.0-5.0 % Neutrophils # (Auto) 12.1 H 1.8-7.7 K/uL Lymphocytes # (Auto) 1.7 1.0-4.8 K/uL Monocytes # (Auto) 0.4 0.1-1.0 K/uL Eosinophils # (Auto) 0.03 0.00-0.70 K/uL Basophils # (Auto) 0.13 0.00-0.20 K/uL Absolute Immature Granulocyte (auto 0.72 0-1 K/uL Nucleated Red Blood Cells 0.3 H 0.0-0.19 % Sodium Level 138 136-145 mmol/L Potassium Level 4.1 3.5-5.1 mmol/L Chloride Level 99 L 101-111 mmol/L Carbon Dioxide Level 27 21-32 mmol/L Blood Urea Nitrogen 10 7-18 mg/dL Creatinine 0.6 0.5-1.0 mg/dL Glomerular Filtration Rate Calc 115 >90 mL/min Random Glucose 390 H 70-105 mg/dL Total Calcium 8.5 8.5-10.1 mg/dL Total Creatine Kinase 48 21-232 U/L Troponin I High Sensitivity 72.3 *H 4-50 ng/L Blood Gas Specimen Type Arterial Arterial Blood pH 7.414 7.350-7.450 Arterial Blood Partial Pressure CO2 40 32-45 mmHg Arterial Blood Partial Pressure O2 58.8 L 83.0-108.0 mmHg Arterial Blood HCO3 24.8 21.0-28.0 mmol/L Arterial Blood Oxygen Saturation 90.3 L 94.0-98.0 % Arterial Blood Base Excess 0.3 -2.0-3.0 mmol/L Hemoglobin (Blood Gas) 9.2 L 12.0-16.0 g/dL Sodium (Blood Gas) 134 L 136-145 MMOL/L Bedside Potassium (Blood Gas) 3.9 3.4-4.5 MMOL/L Bedside Chloride (Blood Gas) 97 L 98-107 MMOL/L Bedside Glucose (Blood Gas) 340 H 65-95 MG/DL Bedside Ionized Calcium (Blood Gas) 1.13 L 1.15-1.33 MMOL/L Bedside Lactic Acid (Blood Gas) 1.83 H 0.36-0.75 MMOL/L Blood Gas Temperature 37.0 35.5-37.0 CELSIUS Blood Gas Vent Mode RA ROOM AIR FiO2 21.0 % Blood Gas Specimen Comment RRJESSE Lactic Acid Level 1.9 0.8-2.5 mmol/L Urine Color LIGHT-YELLOW YELLOW Urine Appearance CLEAR CLEAR Urine pH 6.0 5.0-8.0 Urine Specific [place] 1.040 H 1.001-1.031 Urine Protein 30 H NEGATIVE mg/dL Urine Glucose (UA) >=1000 H NEGATIVE mg/dL Urine Ketones 100 H NEGATIVE mg/dL Urine Occult Blood NEGATIVE NEGATIVE Urine Nitrate NEGATIVE NEGATIVE Urine Bilirubin NEGATIVE NEGATIVE mg/dL Urine Urobilinogen 0.2 0.2-1.0 mg/dL Urine Leukocyte Esterase NEGATIVE NEGATIVE Kt/uL Urine RBC 2-5 H 0-1 /HPF Urine WBC 0-1 0-1 /HPF Urine Squamous Epithelial Cells RARE 0-2 /HPF Urine Bacteria RARE None Seen /HPF Urine Random Creatinine 44.56 30-135 mg/dL Urine Random Total Protein 94.4 H 0-11.9 mg/dL Urine Opiates Screen NEGATIVE NEGATIVE Urine Barbiturates Screen NEGATIVE NEGATIVE Urine Phencyclidine Screen NEGATIVE NEGATIVE Urine Amphetamines Screen NEGATIVE NEGATIVE Urine Benzodiazepines Screen NEGATIVE NEGATIVE Urine Cocaine Screen NEGATIVE NEGATIVE Urine Marijuana (THC) Screen POSITIVE H NEGATIVE Test 03/31/24 12:00 03/31/24 11:19 03/31/24 10:54 Range/Units Stool Occult Blood NEGATIVE NEGATIVE Red Blood Cell Morphology See comments Erythrocyte Sedimentation Rate 32 H 0-20 MM/HR Reticulocyte Count (auto) 2.34884 H 0.42-2.23 % Immature Reticulocyte Fraction 36.60 H 0.18-0.48 % Prothrombin Time 11.5 9.6-11.6 SEC Prothromb Time International Ratio 1.07 0.85-1.15 Activated Partial Thromboplast Time 24.7 L 26.3-35.5 SEC D-Dimer Quantitative (PE/DVT) 674 *H 0-500 ng/mL Hemoglobin A1c 11.0 H 4.0-6.0 % Estimated Average Glucose (eAG) 269 H 70-126 mg/dL Magnesium Level 1.80 1.80-2.40 mg/dL Iron Level 8 L 50-170 mcg/dL Total Iron Binding Capacity 337 250-450 mcg/dL Percent Iron Saturation 2.3 L 22-44 % Ferritin 9 L 15-150 ng/mL Total Bilirubin 0.3 0.2-1.0 mg/dL Direct Bilirubin 0.1 0.0-0.3 mg/dL Aspartate Amino Transf (AST/SGOT) 12 10-37 U/L Alanine Aminotransferase (ALT/SGPT) 12 12-78 U/L Alkaline Phosphatase 97 50-136 U/L Lactate Dehydrogenase 210 81-234 U/L C-Reactive Protein, Quantitative 86.00 H 0.5-3.0 mg/L B-Type Natriuretic Peptide 109 H 0-100 pg/mL Total Protein 7.6 6.0-8.3 g/dL Albumin 3.1 L 3.5-5.0 g/dL Triglycerides Level 135 30-200 mg/dL Cholesterol Level 112 <200 mg/dL LDL Cholesterol 67 0-99 mg/dL HDL Cholesterol 25 L 35-85 mg/dL Vitamin B12 Level 1112 H 193-986 pg/mL Folic Acid (LAB) 19.00 2-20 ng/mL Procalcitonin 0.09 0.05-0.5 ng/mL Thyroid Stimulating Hormone (TSH) 0.64 0.36-3.74 uIU/mL Serum Test, Qualitative NEGATIVE NEGATIVE Influenza Type A Antigen Negative For Type A NEGATIVE Influenza Type B Antigen Negative For Type B NEGATIVE SARS-CoV-2 Antigen (Rapid) PRESUMPTIVE NEGATIVE NEGATIVE Group A Streptococcus Rapid negative NEGATIVE Current Medications Medications (Trade) Dose Ordered Sig/Emi Route PRN Reason Start Time Stop Time Status Last Admin Dose Admin Acetaminophen (TYLenol 500MG TAB) 500 mg Q6H PRN PO MILD PAIN (1-3) 03/31/24 13:00 04/30/24 12:59 Amlodipine Besylate (NorvASC 5MG TAB) 5 mg BID PO 04/01/24 09:00 04/30/24 14:29 Amlodipine Besylate (NorvASC 5MG TAB) 5 mg Q24H PO 03/31/24 14:30 04/01/24 01:33 DC 03/31/24 14:17 5 MG Cefepime HCl (MAXipime 2 gm vial) 2 gm Q12H IVPB 03/31/24 16:00 04/10/24 15:59 04/01/24 03:54 2 GM Doxycycline Hyclate (Doxycycline Hyclate) 100 mg Q12H PO 03/31/24 13:00 04/10/24 12:59 04/01/24 01:13 100 MG Epinephrine (Racepinephrine Neb Soln) 1 ml ONCE PRN NEB WHEEZING 03/31/24 19:30 04/30/24 19:29 04/01/24 03:34 1 ML Folic Acid (FOLic ACID 1 MG TABLET) 1 mg DAILY PO 04/01/24 09:00 05/01/24 08:59 Guaifenesin/ Dextromethorphan (RobiTUSSin DM 200/20MG 10ML) 10 ml Q6H PRN PO COUGH 03/31/24 13:30 04/30/24 13:29 Insulin Glargine (LANtus 100 UNITS/ML 10 ML VIAL) 15 units HS SQ 03/31/24 21:00 03/31/24 15:28 DC Insulin Glargine (LANtus 100 UNITS/ML 10 ML VIAL) 20 units HS SQ 03/31/24 21:00 04/30/24 20:59 03/31/24 20:44 20 UNITS Insulin Human Regular (humuLIN R 100 UNIT/ML 3ML) INSULIN SLIDING SCAL... ACHS SQ 03/31/24 16:30 03/31/24 15:28 DC Insulin Human Regular (humuLIN R 100 UNIT/ML 3ML) INSULIN SLIDING SCAL... ACHS SQ 03/31/24 16:30 04/30/24 16:29 04/01/24 05:55 20 UNIT Ipratropium [place] (AtrovENT UD) 0.5 mg Q6H IH 03/31/24 18:00 04/30/24 17:59 04/01/24 07:05 0.5 MG Iron Sucrose 300 mg/Sodium Chloride 250 ml @ 83 mls/hr DAILY IV 04/01/24 09:00 03/31/24 13:51 DC Iron Sucrose 300 mg/Sodium Chloride 250 ml @ 83 mls/hr DAILY IV 04/01/24 09:00 04/03/24 12:01 Iron Sucrose 300 mg/Sodium Chloride 250 ml @ 83 mls/hr Q24H IV 03/31/24 14:00 03/31/24 16:05 DC Magnesium Sulfate 50 ml @ 0 mls/hr PROTOCOL IV 03/31/24 13:00 04/30/24 12:59 Magnesium Sulfate 50 ml @ 0 mls/hr PROTOCOL PRN IV AD 03/31/24 19:30 03/31/24 19:30 DC Methylprednisolone Sodium Succinate (Solu-medROL 40MG) 40 mg Q8H IVP 03/31/24 15:30 04/30/24 15:29 04/01/24 01:12 40 MG Ondansetron HCl (zoFRAN 4MG INJ) 4 mg Q6H PRN IVP NAUSEA/VOMITING 03/31/24 13:00 04/30/24 12:59 Pantoprazole Sodium (PROTonix 40MG INJ) 40 mg DAILY IVP 04/01/24 09:00 05/01/24 08:59 Polyethylene Glycol (MIRalax 3350 17 GM POWD.PACK) 17 gm DAILY PO 04/01/24 09:00 05/01/24 08:59 Potassium Chloride 100 ml @ 100 mls/hr AD PRN IV POTASSIUM PROTOCOL 03/31/24 13:00 04/30/24 12:59 Potassium Chloride (K-Dur/Klor-Con 20meq) 20 meq AD PRN PO POTASSIUM PROTOCOL 03/31/24 13:00 04/30/24 12:59 Potassium Chloride (KCl 10% Elixir 20meq/15ml) 20 meq AD PRN PO POTASSIUM PROTOCOL 03/31/24 13:00 04/30/24 12:59 03/31/24 19:26 20 MEQ Sodium Chloride 1,000 ml @ 75 mls/hr [id number] IV 03/31/24 13:30 04/30/24 13:29 03/31/24 15:00 75 MLS/HR Vancomycin HCl 250 ml @ 125 mls/hr Q8H IV 03/31/24 21:30 03/31/24 19:24 DC Vancomycin HCl 250 ml @ 125 mls/hr Q8H IV 03/31/24 23:30 04/10/24 23:29 04/01/24 06:45 125 MLS/HR Vancomycin HCl (Vancomycin Protocol) 1 each AD IV 03/31/24 13:00 04/14/24 12:59 DIAGNOSTICS / RADIOLOGY: [ ] ASSESSMENT: Recurrent stridor with hoarseness of voice, POA Acute hypoxemic respiratory failure, POA Concern for Left lower lobe community-acquired pneumonia, POA Severe iron deficiency anemia with underlying history of menorrhagia for five years, POA Demand ischemia, POA Sinus tachycardia with right bundle branch block, POA Leukocytosis POA Hypovolemic hyponatremia, POA Hypokalemia, POA Poorly controlled type 2 diabetes mellitus, last A1C 11.0, POA Hypertension, POA Suspected obstructive sleep apnea, POA Obesity, POA PLAN: Continue PCCU Continue with supplemental O2 therapy to maintain oxygen saturation greater than 92% Continue vancomycin and cefepime Discontinue doxycycline Cultures pending Continue IV hydration with NS at 75 mL/hour x 24 hours as oral intake remains poor, we will check a lactic acid Echo pending, will follow up Continue amlodipine 5 mg bid Pulmonology consulted appreciate recommendations Increase sliding scale sensitivity Start glargine 20 units b.i.d. Continue Pulmicort twice daily and Atrovent q.6 hours OBGYN consulted, appreciate recommendations Disposition: Pending CT of the head and neck, further workup, improvement in respiratory status. ANIBAL ARANGO MD Apr 01, 2024 09:51
[2024-04-01] MEDS: guaiFENesin-DM 200/20MG 10ML PO PRN (10:15)
[2024-04-01] MEDS ORDERED: [UNRECOGNIZED DRUG - OTHER] PO SCH (10:30)
[2024-04-01] MEDS ORDERED: HYDROCOD PO SCH (10:30)
--- NOTE | 2024-04-01 10:39 | PN ---
[facility] PROGRESS NOTE Date Patient Seen: Apr 01, 2024 Time of Visit: 10:37 Supervising Physician: Yrn Contreras Primary Care Physician: Niki family doctor Outpatient Specialists: NA Inpatient Consults: Dr. Cordero, Dr. Montano PROBLEM LIST: Acute hypoxic respiratory failure Community-acquired pneumonia Hyperglycemia in the setting of type 2 diabetes mellitus, which is uncontrolled with hemoglobin A1c 11.0 Substance abuse: Marijuana Microcytic normochromic anemia- iron deficient Leukocytosis with no left shift Acute likely on chronic congestive heart failure with unknown ejection fraction Obesity BMI of 40 History of obesity, current marijuana use, hypertension, diabetes mellitus INTERVAL HISTORY: 04/01 patient is awake alert oriented x3 sitting up side of the bed coughing. Overnight patient did not tolerate CPAP. She also had respiratory stridor early this morning and she received one dose of racemic epi nebulizer. This morning she is on 3 L nasal cannula saturation oxygen of 95%. We will add continuous pulse ox. Have racemic epi evailable for stridor. Add antitussive. Change Atrovent to DuoNeb given wheezing. Continue with IV steroid. Patient is negative for flu, COVID, and group a strep. Add anti leukotrient. Incentive spirometry. Continue antibiotics for cap coverage. CT scan of the neck for soft tissue has been requested, we will follow up with results. In addition, Her glucose is up to 390. Insulin has been adjusted. Continue for closely. REVIEW OF SYSTEMS: 12 point ROS reviewed with patient. Pertinent positives mentioned above. Otherwise negative. PHYSICAL EXAM: GENERAL: alert, weak, awake oriented x 3 HEENT: EOMI, Sclera non icteric, moist mucosa NECK: Supple, no JVD, trachea midline LUNGS: Rales throughout, respiratory wheezing. HEART: Regular rate and rhythm. Normal S1 and S2, without murmurs ABD: Abdomen soft, nontender. Bowel sounds present EXT: No clubbing cyanosis or edema NEURO: Alert and oriented to person, follows commands Vital Signs (last 8hr) Date Time Temp Pulse Resp B/P (MAP) Pulse Ox O2 Delivery O2 Flow Rate FiO2 04/01/24 07:54 98.6 82 18 136/78 95 Room Air 04/01/24 07:06 95 18 04/01/24 03:05 98.2 100 18 157/81 92 Nasal Cannula 3.0 04/01/24 03:00 97 18 LABS: Hematology Labs: Test 04/01/24 03:59 03/31/24 11:19 Range/Units White Blood Count 15.1 H 4.8-10.8 K/uL Red Blood Count 5.38 4.00-5.50 MIL/uL Hemoglobin 7.7 L 12.0-16.0 g/dL Hematocrit 32.1 L 36-48 % Mean Corpuscular Volume 59.7 L 79-99 fL Mean Corpuscular Hemoglobin 14.3 L 27.0-33.0 pg Mean Corpuscular Hemoglobin Concent 24.0 L 32.0-36.0 g/dL Red Cell Distribution Width 19.6 H 11.0-15.5 % Platelet Count 443 H 130-400 K/uL Mean Platelet Volume 10.5 7.5-10.5 fL Immature Granulocyte % (Auto) 4.8 H 0-1 % Neutrophils (%) (Auto) 80.1 H 40.0-77.0 % Lymphocytes (%) (Auto) 11.3 L 21.0-51.0 % Monocytes (%) (Auto) 2.7 L 3.0-13.0 % Eosinophils (%) (Auto) 0.2 0.0-8.0 % Basophils (%) (Auto) 0.9 0.0-5.0 % Neutrophils # (Auto) 12.1 H 1.8-7.7 K/uL Lymphocytes # (Auto) 1.7 1.0-4.8 K/uL Monocytes # (Auto) 0.4 0.1-1.0 K/uL Eosinophils # (Auto) 0.03 0.00-0.70 K/uL Basophils # (Auto) 0.13 0.00-0.20 K/uL Absolute Immature Granulocyte (auto 0.72 0-1 K/uL Nucleated Red Blood Cells 0.3 H 0.0-0.19 % Red Blood Cell Morphology See comments Erythrocyte Sedimentation Rate 32 H 0-20 MM/HR Reticulocyte Count (auto) 2.36227 H 0.42-2.23 % Immature Reticulocyte Fraction 36.60 H 0.18-0.48 % Chemistry Labs: Test 04/01/24 05:15 04/01/24 03:59 03/31/24 13:01 03/31/24 11:19 Range/Units Whole Blood Glucose 359 H 70-110 MG/DL Bedside Glucose Comment Notified Nurse Sodium Level 138 136-145 mmol/L Potassium Level 4.1 3.5-5.1 mmol/L Chloride Level 99 L 101-111 mmol/L Carbon Dioxide Level 27 21-32 mmol/L Blood Urea Nitrogen 10 7-18 mg/dL Creatinine 0.6 0.5-1.0 mg/dL Glomerular Filtration Rate Calc 115 >90 mL/min Random Glucose 390 H 70-105 mg/dL Total Calcium 8.5 8.5-10.1 mg/dL Total Creatine Kinase 48 21-232 U/L Troponin I High Sensitivity 72.3 *H 4-50 ng/L Lactic Acid Level 1.9 0.8-2.5 mmol/L Hemoglobin A1c 11.0 H 4.0-6.0 % Estimated Average Glucose (eAG) 269 H 70-126 mg/dL Magnesium Level 1.80 1.80-2.40 mg/dL Iron Level 8 L 50-170 mcg/dL Total Iron Binding Capacity 337 250-450 mcg/dL Percent Iron Saturation 2.3 L 22-44 % Ferritin 9 L 15-150 ng/mL Total Bilirubin 0.3 0.2-1.0 mg/dL Direct Bilirubin 0.1 0.0-0.3 mg/dL Aspartate Amino Transf (AST/SGOT) 12 10-37 U/L Alanine Aminotransferase (ALT/SGPT) 12 12-78 U/L Alkaline Phosphatase 97 50-136 U/L Lactate Dehydrogenase 210 81-234 U/L C-Reactive Protein, Quantitative 86.00 H 0.5-3.0 mg/L B-Type Natriuretic Peptide 109 H 0-100 pg/mL Total Protein 7.6 6.0-8.3 g/dL Albumin 3.1 L 3.5-5.0 g/dL Triglycerides Level 135 30-200 mg/dL Cholesterol Level 112 <200 mg/dL LDL Cholesterol 67 0-99 mg/dL HDL Cholesterol 25 L 35-85 mg/dL Vitamin B12 Level 1112 H 193-986 pg/mL Folic Acid (LAB) 19.00 2-20 ng/mL Procalcitonin 0.09 0.05-0.5 ng/mL Thyroid Stimulating Hormone (TSH) 0.64 0.36-3.74 uIU/mL Serum Test, Qualitative NEGATIVE NEGATIVE Coagulation Labs: Test 11/29/24 11:19 Range/Units Prothrombin Time 11.5 9.6-11.6 SEC Prothromb Time International Ratio 1.07 0.85-1.15 Activated Partial Thromboplast Time 24.7 L 26.3-35.5 SEC D-Dimer Quantitative (PE/DVT) 674 *H 0-500 ng/mL DIAGNOSTICS / RADIOLOGY RESULTS: [ ] PLAN NEURO: Minimize central acting medications as possible. Maintain fall precautions, adequate lighting during the day PULMONARY: Supplemental 02 as needed. Maintain aspiration precautions at all times Oxygen supplementation CP overnight Antibiotic for community-acquired, Tapering steroids CARDIOVASCULAR: Follow hemodynamics. Vital signs per facility protocol Trend BNP Echocardiogram GI & NUTRITION: Continue with nutritional support. Continue stool softeners and laxatives as needed. Bowel regimen KIDNEYS & ELECTROLYTES: Strict monitoring of intake, output and overall fluid balance. Avoid nephrotoxic medications to the extent possible. Medications to be dosed according to renal function. Monitor electrolytes and replace as needed Iron panel is low, ferrous sulfate ENDOCRINE: Maintain blood glucose between 100-180 at all times. Hypoglycemia protocol in place Insulin sliding scale Hemoglobin A1c is 11, patient will need long-acting insulin. Diabetic education Weight management INFECTIOUS DISEASE: Trend temperature, WBC and procalcitonin level Follow cultures, deescalate antibiotics as soon as possible. Panculture if new onset fever ONCOLOGY/HEMATOLOGY/COAGULATION: Monitor for s/s of bleeding Monitor hemoglobin, coagulation studies as needed SKIN: Pressure ulcer prevention per facility protocol Specialty mattress ORTHO/REHAB: Continue PT/OT Prophylaxis: Continue GI and DVT prophylaxis Code Status: Full Resuscitation Disposition: TBD Other: Social for Substance abuse cessation Total patient care time exceeds 35 minutes excluding all procedures. SUKI GONSALEZ SUPERVISOR UNLOADING Apr 01, 2024 10:39
--- NOTE | 2024-04-01 10:53 | HMCIMG ---
CT CHEST W/O CONTRAST HISTORY: Stridor COMPARISON: None TECHNIQUE: Multiple sequential axial images of the chest were obtained from the thoracic inlet through upper abdomen. Patient was not given contrast through intravenous route. FINDINGS: Bibasilar linear atelectasis changes are seen. There may be mild bilateral pulmonary infiltrates. There are bilateral interstitial fibrosis. There is no evidence of pulmonary nodule or parenchymal disease. No pleural effusion or pericardial effusion is seen. There is no evidence of pneumothorax. There are normal size mediastinal and hilar lymph nodes. The heart is not enlarged. Degenerative changes of the thoracolumbar spine are present. There is no evidence of adrenal nodule. Fatty changes of the liver are noted. Spleen is enlarged measuring 14 cm. Liver is prominent. IMPRESSION: 1. No evidence of pulmonary nodule or effusion is seen. Possible mild bilateral pulmonary infiltrates. Minimal atelectasis. CT was performed with one or more following dose reduction techniques: automated exposure control, adjustment of the mA and kv according to patient's size, or use of a iterative reconstruction technique.
--- NOTE | 2024-04-01 11:00 | HMCIMG ---
CT NECK SOFT TISS W/O CONTRAST HISTORY: Throat closing COMPARISON: None TECHNIQUE: Multiple sequential axial images of the soft tissue neck were obtained. Patient was not given contrast through intravenous route. FINDINGS: Visualized portion of brain parenchyma within the posterior fossa is within normal limits. Parapharyngeal fat planes are preserved bilaterally. Parotid glands and submandibular glands are grossly within normal limits. There are normal size cervical lymph nodes. The airway is patent. Visualized portion of the lung apices are unremarkable. IMPRESSION: 1. No acute findings. CT was performed with one or more following dose reduction techniques: automated exposure control, adjustment of the mA and kv according to patient's size, or use of a iterative reconstruction technique.
[2024-04-01] MEDS: IpraTROPium/alBUTERol SULFATE 3 ML SOLUTION IH SCH (11:38)
[2024-04-01] MEDS: BENZONATATE 100 MG CAPSULE PO SCH (12:31)
--- NOTE | 2024-04-01 13:14 | NUR ---
Nutrition consult per T2DM Reviewed labs, notes, and medications. Pt with issues w/ medical insurance, positive for marijuana, iv abx, insulin, b-complex, miralax, elevated CRP, A1C 11, elevated troponin, hyperglycemia 340, low HDL 25, iv fluids per chart review. Wt via standing scale, last BM 04/01/24, no edema, well nourished, no wounds per nursing. Per research low vitamin D may contribute to insulin resistance. Pending labs to provide nutrition education. Recommendations: -Provide CLD + NCS -Advance diet when medically feasible to 60 gm cho + hi pro -Monitor PO intake -Monitor BM -If no BM >3 days consider stool softener -Monitor electrolytes -Replenish electrolytes per protocol -Monitor wts -Reweigh as able -Order Vit D, vit b-12 labs to rule out deficiencies -Provide b-complex qd -Recommend Pt to follow up with PCP -Monitor goals of care RD to follow + available for consult per protocol Addendum: 04/01/24 at [address] Amended: Links added.
--- NOTE | 2024-04-01 16:03 | HMCSR ---
APPROVED REPORT EXAM: Two-dimensional and M-mode echocardiogram with Doppler and color Doppler. INDICATION ICD: pulmonary hypertension 2D Dimensions RVDd4.0 cmLVEF(%)78.1 (>50%)LVED Vol(simp.)167.0 mL IVSd0.7 (0.7-1.1cm)FS(%)47 %LVES Vol(simp.)60.1 mL LVDd5.5 (3.8-5.6cm)LA (2D)3.5 (1.6-4.0cm)LVEF(%, simp.)64 % PWd1.0 (0.7-1.1cm)Ao Root(2D)2.7 (2.0-3.7cm)LA ESV INDEX (4CH)27.70 mL/m2 IVSs1.4 cmLVOT diam2.4 (1.8-2.4cm)LA ESV INDEX (2CH)39.30 mL/m2 LVDs2.9 (2.5-4.0cm)LA ESV INDEX (BP)32.80 mL/m2 PWs1.6 cm M-Mode Dimensions EPSS1.1 cm LA (MM)4.9 (1.6-4.0cm) Ao Root(MM)3.5 (2.0-3.7cm) Aortic Valve AoV VTI0.4 mAo Mean GR7.0 mmHgLVOT VTI0.26 m ANU (VMAX)3.4 cm2AVA (VTI) 3.4 cm2 Mitral Valve MV E Pang148.3 cm/sDECEL Doaj122 ms MV A Vmax91.2 cm/sP 1/2 T53 ms E/A ratio1.1MVA (PHT)4.2 cm2 TDI E/E' [place]53.0E/E' Vkyloip65.9 Medial E' Peak V10.40 cm/sLateral E' Peak V9.60 cm/s Left Ventricle The left ventricle is upper limits normal in size. There is normal LV segmental wall motion. There is normal left ventricular wall thickness. LVEF is 60-65%. The left ventricular diastolic function is n ormal. Right Ventricle The right ventricle is normal size. The right ventricular systolic function is normal. Atria The left atrium size is normal. The right atrium size is normal. Aortic Valve The aortic valve is normal in structure. No aortic regurgitation is present. There is no aortic valvu lar stenosis. Mitral Valve The mitral valve is normal in structure. There is no evidence of significant mitral regurgitation. Th ere is no mitral valve stenosis. Tricuspid Valve The tricuspid valve is normal in structure. There is no tricuspid valve regurgitation noted. Pulmonic Valve The pulmonary valve is normal in structure. There is no pulmonic valvular regurgitation. Great Vessels The aortic root is normal in size. The IVC is dilated and collapses >50% with inspiration. Pericardium There is no pericardial effusion. Other Information Quality : GoodRhythm : NSR Conclusion LVEF is 60-65%. The left ventricular diastolic function is normal. Unable to estimate pulmonary artery pressure due to inadequate TR jet, however right sided chamber si zes and RV systolic function normal.
[2024-04-01] MEDS: Solu-medROL 40MG VIAL IVP SCH (16:04)
[2024-04-01] MEDS: VANCOMYCIN 1.25 GM/250 ML BAG 250 ML IV SCH (18:04)
[2024-04-01] MEDS: monteLUKAST sodIUM 10 MG TAB PO SCH (21:19)
[2024-04-02] VITALS (17 sets, daily range): BP systolic 137–158; BP diastolic 72–91; PULSE 74–97; RESP 16–19; TEMP 97.8–98.5; O2SAT 96
[2024-04-02 03:36] LABS: BASOPHILS # (AUTO) 0.08 K/uL (0.00-0.20); BASOPHILS % (AUTO) 0.6 % (0.0-5.0); EOSINOPHILS # (AUTO) 0.03 K/uL (0.00-0.70); EOSINOPHILS % (AUTO) 0.2 % (0.0-8.0); HEMATOCRIT 28.9 % (36-48); IMMATURE GRANULOCYTE ABSOLUTE 0.71 K/uL (0-1); LYMPHOCYTES # (AUTO) 0.9 K/uL (1.0-4.8); LYMPHOCYTES % (AUTO) 6.5 % (21.0-51.0); MEAN CORPUSCULAR HEMOGLOBIN 14.4 pg (27.0-33.0); MEAN CORPUSCULAR HGB CONC 24.2 g/dL (32.0-36.0); MEAN CORPUSCULAR VOLUME 59.5 fL (79-99); MONOCYTES # (AUTO) 0.4 K/uL (0.1-1.0); MONOCYTES % (AUTO) 3.1 % (3.0-13.0); NEUTROPHILS # (AUTO) 11.9 K/uL (1.8-7.7); NEUTROPHILS % (AUTO) 84.5 % (40.0-77.0); NUCLEATED RED BLOOD CELLS 0.9 % (0.0-0.19); PLATELET COUNT (AUTO) 403 K/uL (130-400); RED BLOOD CELL COUNT(AUTO) 4.86 MIL/uL (4.00-5.50); RED CELL DISTRIBUTION WIDTH 19.2 % (11.0-15.5)
[2024-04-02 03:47] LABS: CREATININE 0.7 mg/dL (0.5-1.0); MAGNESIUM 1.8 mg/dL (1.80-2.40); POTASSIUM 4.1 mmol/L (3.5-5.1)
--- NOTE | 2024-04-02 03:48 | NUR ---
Critical Hg of 7.0 relayed to primary RN, Rashmi Pitt
--- NOTE | 2024-04-02 04:53 | NUR ---
Millie hospitalist Pt HGB today was 7.0 from 7.7 yesterday, [employer] [facility] called back, Dr. Husain seeing pt does not recommend transfusion rather treatment with iron and folic acid due to anemia. Pt has been vaginal bleeding and spotting for several years with no insurance for intervention. DR. PETERSON [place] [facility] [place] [facility] [place]END[place] RECOMMENDATIONS- NO NEW ORDERS.
--- NOTE | 2024-04-02 08:34 | PN ---
[facility] PROGRESS NOTE Date of Service: Apr 02, 2024 Time of Service: 08:25 SUBJECTIVE: 04/01 patient seen at bedside, no acute events overnight. She was assessed by OBGYN today who recommends her to follow-up in his clinic where he will do an endometrial biopsy and a repeat pelvic ultrasound. Patient continues having episodes of stridor that have been occurring over the last year she also has a hoarse voice, this is concerning for a possible mass or neurologic issue involving the vocal cords. A CT of the head and neck has been ordered, we will follow up with the results. If it is not revealing a bronchoscopy may be more revealing. She has been afebrile, hemodynamically stable saturating well on 3 L nasal cannula. WBC increased from 13.1 up to 50.1 however she has been started on systemic steroids, hemoglobin improved from 7.4 up to 7.7, platelets elevated at 443, reticulocyte count elevated at 2.38 suggesting adequate hematopoiesis, blood sugar is elevated in the 300s, we will adjust her sliding scale and add glargine. Remainder of her labs are relatively unremarkable. 04/02 patient seen at bedside, no acute events overnight. CT of the head, neck and chest showed no masses or acute abnormalities. We will continue with nebulizer treatments and empiric antibiotics. Although no obvious mass has been noted we will discuss with pulmonology the utility of a bronchoscopy as there could be a vegetation, papilloma or some other abnormality with the vocal cords themselves. Her progressive worsening of hoarseness over the last six months is concerning. We will follow up with pulmonology for further recommendations. Continue with duo nebs and systemic steroids, we will start budesonide as well. REVIEW OF SYSTEMS 12 point review of systems negative unless noted in HPI PHYSICAL EXAM GENERAL APPEARANCE: The patient is awake, alert, and oriented, in no acute cardiopulmonary distress. NEUROLOGICAL: Cranial nerves II-XII grossly intact. Motor is 5/5 in bilateral upper and lower extremities proximal to distal. No sensory deficits. HEENT: Face is symmetric. Pupils are equal and reactive. Extraocular movements are intact. NECK: Supple. No JVD. No thyromegaly. No submental, submandibular, pre- /postauricular, occipital or supraclavicular lymphadenopathy. CHEST: Normal chest expansion. No Telemetry. LUNGS: Crackles noted of the left lung base, no wheezes and rhonchi noted CARDIOVASCULAR: Regular. S1 and S2 normal. No appreciable rubs, murmurs or gallops. ABDOMEN: Soft, nontender, and nondistended. There is no rebound, voluntary guarding, or rigidity. : Deferred. No Berg. EXTREMITIES: no significant edema noted of the bilateral lower extremities SKIN: No skin breakdown. Vital Signs (last 8hr) Date Time Temp Pulse Resp B/P (MAP) Pulse Ox O2 Delivery O2 Flow Rate FiO2 04/02/24 07:38 98.1 80 18 158/91 96 Nasal Cannula 3.0 04/02/24 04:15 98.2 82 18 137/72 94 Nasal Cannula 3.0 04/02/24 01:40 92 18 LABS: Laboratory: Test 04/02/24 05:27 04/02/24 03:17 04/01/24 14:20 04/01/24 05:15 Range/Units Whole Blood Glucose 394 H 70-110 MG/DL White Blood Count 14.0 H 4.8-10.8 K/uL Red Blood Count 4.86 4.00-5.50 MIL/uL Hemoglobin 7.0 *L 12.0-16.0 g/dL Hematocrit 28.9 L 36-48 % Mean Corpuscular Volume 59.5 L 79-99 fL Mean Corpuscular Hemoglobin 14.4 L 27.0-33.0 pg Mean Corpuscular Hemoglobin Concent 24.2 L 32.0-36.0 g/dL Red Cell Distribution Width 19.2 H 11.0-15.5 % Platelet Count 403 H 130-400 K/uL Mean Platelet Volume 7.5-10.5 fL Immature Granulocyte % (Auto) 5.1 H 0-1 % Neutrophils (%) (Auto) 84.5 H 40.0-77.0 % Lymphocytes (%) (Auto) 6.5 L 21.0-51.0 % Monocytes (%) (Auto) 3.1 3.0-13.0 % Eosinophils (%) (Auto) 0.2 0.0-8.0 % Basophils (%) (Auto) 0.6 0.0-5.0 % Neutrophils # (Auto) 11.9 H 1.8-7.7 K/uL Lymphocytes # (Auto) 0.9 L 1.0-4.8 K/uL Monocytes # (Auto) 0.4 0.1-1.0 K/uL Eosinophils # (Auto) 0.03 0.00-0.70 K/uL Basophils # (Auto) 0.08 0.00-0.20 K/uL Absolute Immature Granulocyte (auto 0.71 0-1 K/uL Nucleated Red Blood Cells 0.9 H 0.0-0.19 % White Cell Morphology Comment See comments Sodium Level 140 136-145 mmol/L Potassium Level 4.1 3.5-5.1 mmol/L Chloride Level 102 101-111 mmol/L Carbon Dioxide Level 33 H 21-32 mmol/L Blood Urea Nitrogen 14 7-18 mg/dL Creatinine 0.7 0.5-1.0 mg/dL Glomerular Filtration Rate Calc 111 >90 mL/min Random Glucose 333 H 70-105 mg/dL Total Calcium 8.4 L 8.5-10.1 mg/dL Phosphorus Level 3.0 2.5-4.9 mg/dL Magnesium Level 1.80 1.80-2.40 mg/dL Vancomycin Level Trough 10.0 10.0-20.0 UG/ML Bedside Glucose Comment Notified Nurse Test 04/01/24 03:59 03/31/24 13:01 03/31/24 12:45 03/31/24 12:00 Range/Units Total Creatine Kinase 48 21-232 U/L Troponin I High Sensitivity 72.3 *H 4-50 ng/L Vitamin B12 Level 1343 H 193-986 pg/mL Vitamin D 25-Hydroxy 27.6 30.0-100.0 ng/mL HIV (1&2) Antibody Non-Reactive Negative HIV P24 Antigen, Qualitative Non-Reactive Negative Blood Gas Specimen Type Arterial Arterial Blood pH 7.414 7.350-7.450 Arterial Blood Partial Pressure CO2 40 32-45 mmHg Arterial Blood Partial Pressure O2 58.8 L 83.0-108.0 mmHg Arterial Blood HCO3 24.8 21.0-28.0 mmol/L Arterial Blood Oxygen Saturation 90.3 L 94.0-98.0 % Arterial Blood Base Excess 0.3 -2.0-3.0 mmol/L Hemoglobin (Blood Gas) 9.2 L 12.0-16.0 g/dL Sodium (Blood Gas) 134 L 136-145 MMOL/L Bedside Potassium (Blood Gas) 3.9 3.4-4.5 MMOL/L Bedside Chloride (Blood Gas) 97 L 98-107 MMOL/L Bedside Glucose (Blood Gas) 340 H 65-95 MG/DL Bedside Ionized Calcium (Blood Gas) 1.13 L 1.15-1.33 MMOL/L Bedside Lactic Acid (Blood Gas) 1.83 H 0.36-0.75 MMOL/L Blood Gas Temperature 37.0 35.5-37.0 CELSIUS Blood Gas Vent Mode RA ROOM AIR FiO2 21.0 % Blood Gas Specimen Comment RRJESSE Lactic Acid Level 1.9 0.8-2.5 mmol/L Urine Color LIGHT-YELLOW YELLOW Urine Appearance CLEAR CLEAR Urine pH 6.0 5.0-8.0 Urine Specific Whittaker 1.040 H 1.001-1.031 Urine Protein 30 H NEGATIVE mg/dL Urine Glucose (UA) >=1000 H NEGATIVE mg/dL Urine Ketones 100 H NEGATIVE mg/dL Urine Occult Blood NEGATIVE NEGATIVE Urine Nitrate NEGATIVE NEGATIVE Urine Bilirubin NEGATIVE NEGATIVE mg/dL Urine Urobilinogen 0.2 0.2-1.0 mg/dL Urine Leukocyte Esterase NEGATIVE NEGATIVE Kt/uL Urine RBC 2-5 H 0-1 /HPF Urine WBC 0-1 0-1 /HPF Urine Squamous Epithelial Cells RARE 0-2 /HPF Urine Bacteria RARE None Seen /HPF Urine Random Creatinine 44.56 30-135 mg/dL Urine Random Total Protein 94.4 H 0-11.9 mg/dL Urine Opiates Screen NEGATIVE NEGATIVE Urine Barbiturates Screen NEGATIVE NEGATIVE Urine Phencyclidine Screen NEGATIVE NEGATIVE Urine Amphetamines Screen NEGATIVE NEGATIVE Urine Benzodiazepines Screen NEGATIVE NEGATIVE Urine Cocaine Screen NEGATIVE NEGATIVE Urine Marijuana (THC) Screen POSITIVE H NEGATIVE Stool Occult Blood NEGATIVE NEGATIVE Test 03/31/24 11:19 03/31/24 10:54 Range/Units Red Blood Cell Morphology See comments Erythrocyte Sedimentation Rate 32 H 0-20 MM/HR Reticulocyte Count (auto) 2.65814 H 0.42-2.23 % Immature Reticulocyte Fraction 36.60 H 0.18-0.48 % Prothrombin Time 11.5 9.6-11.6 SEC Prothromb Time International Ratio 1.07 0.85-1.15 Activated Partial Thromboplast Time 24.7 L 26.3-35.5 SEC D-Dimer Quantitative (PE/DVT) 674 *H 0-500 ng/mL Hemoglobin A1c 11.0 H 4.0-6.0 % Estimated Average Glucose (eAG) 269 H 70-126 mg/dL Iron Level 8 L 50-170 mcg/dL Total Iron Binding Capacity 337 250-450 mcg/dL Percent Iron Saturation 2.3 L 22-44 % Ferritin 9 L 15-150 ng/mL Total Bilirubin 0.3 0.2-1.0 mg/dL Direct Bilirubin 0.1 0.0-0.3 mg/dL Aspartate Amino Transf (AST/SGOT) 12 10-37 U/L Alanine Aminotransferase (ALT/SGPT) 12 12-78 U/L Alkaline Phosphatase 97 50-136 U/L Lactate Dehydrogenase 210 81-234 U/L C-Reactive Protein, Quantitative 86.00 H 0.5-3.0 mg/L B-Type Natriuretic Peptide 109 H 0-100 pg/mL Total Protein 7.6 6.0-8.3 g/dL Albumin 3.1 L 3.5-5.0 g/dL Triglycerides Level 135 30-200 mg/dL Cholesterol Level 112 <200 mg/dL LDL Cholesterol 67 0-99 mg/dL HDL Cholesterol 25 L 35-85 mg/dL Folic Acid (LAB) 19.00 2-20 ng/mL Procalcitonin 0.09 0.05-0.5 ng/mL Thyroid Stimulating Hormone (TSH) 0.64 0.36-3.74 uIU/mL Serum Test, Qualitative NEGATIVE NEGATIVE Influenza Type A Antigen Negative For Type A NEGATIVE Influenza Type B Antigen Negative For Type B NEGATIVE SARS-CoV-2 Antigen (Rapid) PRESUMPTIVE NEGATIVE NEGATIVE Group A Streptococcus Rapid negative NEGATIVE Current Medications Medications (Trade) Dose Ordered Sig/Emi Route PRN Reason Start Time Stop Time Status Last Admin Dose Admin Acetaminophen (TYLenol 500MG TAB) 500 mg Q6H PRN PO MILD PAIN (1-3) 03/31/24 13:00 04/30/24 12:59 Albuterol (DUOneb) 1 udvial Q4H IH 04/01/24 10:30 05/01/24 10:29 04/02/24 06:46 1 UDVIAL Amlodipine Besylate (NorvASC 5MG TAB) 5 mg BID PO 04/01/24 09:00 04/30/24 14:29 04/01/24 21:19 5 MG Amlodipine Besylate (NorvASC 5MG TAB) 5 mg Q24H PO 03/31/24 14:30 04/01/24 01:33 DC 03/31/24 14:17 5 MG Benzonatate (Tessalon 100mg Caps) 100 mg Q8H PO 04/01/24 10:30 05/01/24 10:29 04/02/24 01:44 100 MG Cefepime HCl (MAXipime 2 gm vial) 2 gm Q12H IVPB 03/31/24 16:00 04/10/24 15:59 04/02/24 04:02 2 GM Chlorphenir/ Hydrocodone Polistirex (TUSSionex SUSP 5ML) 5 ml Q12H PO 04/01/24 10:30 04/01/24 10:31 DC Doxycycline Hyclate (Doxycycline Hyclate) 100 mg Q12H PO 03/31/24 13:00 04/01/24 07:56 DC 04/01/24 01:13 100 MG Epinephrine (Racepinephrine Neb Soln) 1 ml ONCE PRN NEB WHEEZING 03/31/24 19:30 04/30/24 19:29 04/01/24 03:34 1 ML Folic Acid (FOLic ACID 1 MG TABLET) 1 mg DAILY PO 04/01/24 09:00 05/01/24 08:59 04/01/24 09:06 1 MG Guaifenesin/ Dextromethorphan (RobiTUSSin DM 200/20MG 10ML) 10 ml Q6H PRN PO COUGH 03/31/24 13:30 04/30/24 13:29 04/01/24 18:04 10 ML Insulin Glargine (LANtus 100 UNITS/ML 10 ML VIAL) 15 units HS SQ 03/31/24 21:00 03/31/24 15:28 DC Insulin Glargine (LANtus 100 UNITS/ML 10 ML VIAL) 20 units BID SQ 04/01/24 08:00 04/30/24 20:59 04/01/24 21:20 20 UNITS Insulin Glargine (LANtus 100 UNITS/ML 10 ML VIAL) 20 units HS SQ 03/31/24 21:00 04/01/24 07:53 DC 03/31/24 20:44 20 UNITS Insulin Human Regular (humuLIN R 100 UNIT/ML 3ML) INSULIN SLIDING SCAL... ACHS SQ 03/31/24 16:30 03/31/24 15:28 DC Insulin Human Regular (humuLIN R 100 UNIT/ML 3ML) INSULIN SLIDING SCAL... ACHS SQ 03/31/24 16:30 04/30/24 16:29 04/02/24 06:23 20 UNIT Ipratropium Kenefic (AtrovENT UD) 0.5 mg Q6H IH 03/31/24 18:00 04/01/24 10:29 DC 04/01/24 07:05 0.5 MG Iron Sucrose 300 mg/Sodium Chloride 250 ml @ 83 mls/hr DAILY IV 04/01/24 09:00 03/31/24 13:51 DC Iron Sucrose 300 mg/Sodium Chloride 250 ml @ 83 mls/hr DAILY IV 04/01/24 09:00 04/03/24 12:01 04/01/24 09:17 83 MLS/HR Iron Sucrose 300 mg/Sodium Chloride 250 ml @ 83 mls/hr Q24H IV 03/31/24 14:00 03/31/24 16:05 DC Magnesium Sulfate 50 ml @ 0 mls/hr PROTOCOL IV 03/31/24 13:00 04/30/24 12:59 Magnesium Sulfate 50 ml @ 0 mls/hr PROTOCOL PRN IV AD 03/31/24 19:30 03/31/24 19:30 DC Methylprednisolone Sodium Succinate (Solu-medROL 40MG) 40 mg Q8H IVP 03/31/24 15:30 04/01/24 10:37 DC 04/01/24 09:04 40 MG Methylprednisolone Sodium Succinate (Solu-medROL 40MG) 60 mg Q8H IVP 04/01/24 15:30 05/01/24 15:29 04/01/24 23:25 60 MG Montelukast Sodium (SinguLAIR) 10 mg HS PO 04/01/24 21:00 05/01/24 20:59 04/01/24 21:19 10 MG Ondansetron HCl (zoFRAN 4MG INJ) 4 mg Q6H PRN IVP NAUSEA/VOMITING 03/31/24 13:00 04/30/24 12:59 Pantoprazole Sodium (PROTonix 40MG INJ) 40 mg DAILY IVP 04/01/24 09:00 05/01/24 08:59 04/01/24 09:05 40 MG Polyethylene Glycol (MIRalax 3350 17 GM POWD.PACK) 17 gm DAILY PO 04/01/24 09:00 05/01/24 08:59 04/01/24 09:05 17 GM Potassium Chloride 100 ml @ 100 mls/hr AD PRN IV POTASSIUM PROTOCOL 03/31/24 13:00 04/30/24 12:59 Potassium Chloride (K-Dur/Klor-Con 20meq) 20 meq AD PRN PO POTASSIUM PROTOCOL 03/31/24 13:00 04/30/24 12:59 Potassium Chloride (KCl 10% Elixir 20meq/15ml) 20 meq AD PRN PO POTASSIUM PROTOCOL 03/31/24 13:00 04/30/24 12:59 03/31/24 19:26 20 MEQ Sodium Chloride 1,000 ml @ 75 mls/hr [id number] IV 03/31/24 13:30 04/30/24 13:29 04/02/24 04:49 75 MLS/HR Vancomycin HCl 250 ml @ 125 mls/hr Q8H IV 03/31/24 21:30 03/31/24 19:24 DC Vancomycin HCl 250 ml @ 125 mls/hr Q8H IV 03/31/24 23:30 04/01/24 15:17 DC 04/01/24 06:45 125 MLS/HR Vancomycin HCl 250 ml @ 125 mls/hr Q8H IV 04/01/24 18:00 04/11/24 17:59 04/02/24 01:46 125 MLS/HR Vancomycin HCl (Vancomycin Protocol) 1 each AD IV 03/31/24 13:00 04/14/24 12:59 DIAGNOSTICS / RADIOLOGY: [ ] ASSESSMENT: Recurrent stridor with hoarseness of voice, POA Acute hypoxemic respiratory failure, POA Concern for Left lower lobe community-acquired pneumonia, POA Severe iron deficiency anemia with underlying history of menorrhagia for five years, POA Demand ischemia, POA Sinus tachycardia with right bundle branch block, POA Leukocytosis POA Hypovolemic hyponatremia, POA Hypokalemia, POA Poorly controlled type 2 diabetes mellitus, last A1C 11.0, POA Hypertension, POA Suspected obstructive sleep apnea, POA Obesity, POA PLAN: Continue PCCU Continue with supplemental O2 therapy to maintain oxygen saturation greater than 92% Continue vancomycin and cefepime Discontinue doxycycline Cultures pending Continue IV hydration with NS at 75 mL/hour x 24 hours as oral intake remains poor, we will check a lactic acid Echo pending, will follow up Continue amlodipine 5 mg bid Pulmonology consulted appreciate recommendations Increase sliding scale sensitivity Start glargine 20 units b.i.d. Continue Pulmicort twice daily and Atrovent q.6 hours OBGYN consulted, appreciate recommendations Disposition: Pending improvement in clinical status, possible bronchoscopy ANIBAL ARANGO MD Apr 02, 2024 08:34
[2024-04-02] MEDS: INSULIN GLARgine 100 UNITS/ML 10 ML VIAL SQ SCH (08:56)
--- NOTE | 2024-04-02 10:41 | PN ---
[facility] CARDIOLOGY PROGRESS NOTE Cardiology progress note dictated for Lilliana Ontiveros MD Primary dust puller: Marci Roman MD Date Patient Seen: Apr 02, 2024 Interval History: The patient describes two minor episodes of laryngospasm that occurred last night again, CT of the neck soft tissue was normal. She continues with a dry cough. Telemetry demonstrating NSR. The patient denies chest, palpitations, orthopnea, PND, dizziness, nausea, or vomiting. She admits to pink staining on her adult diaper. WBC has increased from 13.1 up to 14, hemoglobin of 7.0 with hematocrit 28.[address] of the chest demonstrated mild bilateral pulmonary infiltrates and minimal atelectasis. Physical Examination: GENERAL: No acute distress. On 2L of o2 via NC HEAD: Normal with no signs of head trauma. EYES: PERRLA, EOMI, conjunctiva and sclera normal. NECK: Supple without JVD. There is no tenderness, lymphadenopathy, or masses. No thyromegaly. Normal carotid upstrokes without bruits. LUNGS: Minimal bilateral rhonchi with expiratory wheezing to the right lung only. HEART: Normal rate and rhythm. Normal S1 and S2 without murmurs, gallop or rub. VASC: Peripheral pulses +2 bilaterally. EXT: No clubbing, cyanosis or edema. NEURO: Awake, alert, and oriented x3. No focal neurological deficits noted. Laboratory: Hematology Labs: Test 04/02/24 03:17 03/31/24 11:19 Range/Units White Blood Count 14.0 H 4.8-10.8 K/uL Red Blood Count 4.86 4.00-5.50 MIL/uL Hemoglobin 7.0 *L 12.0-16.0 g/dL Hematocrit 28.9 L 36-48 % Mean Corpuscular Volume 59.5 L 79-99 fL Mean Corpuscular Hemoglobin 14.4 L 27.0-33.0 pg Mean Corpuscular Hemoglobin Concent 24.2 L 32.0-36.0 g/dL Red Cell Distribution Width 19.2 H 11.0-15.5 % Platelet Count 403 H 130-400 K/uL Mean Platelet Volume 7.5-10.5 fL Immature Granulocyte % (Auto) 5.1 H 0-1 % Neutrophils (%) (Auto) 84.5 H 40.0-77.0 % Lymphocytes (%) (Auto) 6.5 L 21.0-51.0 % Monocytes (%) (Auto) 3.1 3.0-13.0 % Eosinophils (%) (Auto) 0.2 0.0-8.0 % Basophils (%) (Auto) 0.6 0.0-5.0 % Neutrophils # (Auto) 11.9 H 1.8-7.7 K/uL Lymphocytes # (Auto) 0.9 L 1.0-4.8 K/uL Monocytes # (Auto) 0.4 0.1-1.0 K/uL Eosinophils # (Auto) 0.03 0.00-0.70 K/uL Basophils # (Auto) 0.08 0.00-0.20 K/uL Absolute Immature Granulocyte (auto 0.71 0-1 K/uL Nucleated Red Blood Cells 0.9 H 0.0-0.19 % White Cell Morphology Comment See comments Red Blood Cell Morphology See comments Erythrocyte Sedimentation Rate 32 H 0-20 MM/HR Reticulocyte Count (auto) 2.62340 H 0.42-2.23 % Immature Reticulocyte Fraction 36.60 H 0.18-0.48 % Chemistry Labs: Test 04/02/24 05:27 04/02/24 03:17 04/01/24 05:15 04/01/24 03:59 Range/Units Whole Blood Glucose 394 H 70-110 MG/DL Sodium Level 140 136-145 mmol/L Potassium Level 4.1 3.5-5.1 mmol/L Chloride Level 102 101-111 mmol/L Carbon Dioxide Level 33 H 21-32 mmol/L Blood Urea Nitrogen 14 7-18 mg/dL Creatinine 0.7 0.5-1.0 mg/dL Glomerular Filtration Rate Calc 111 >90 mL/min Random Glucose 333 H 70-105 mg/dL Total Calcium 8.4 L 8.5-10.1 mg/dL Phosphorus Level 3.0 2.5-4.9 mg/dL Magnesium Level 1.80 1.80-2.40 mg/dL Bedside Glucose Comment Notified Nurse Total Creatine Kinase 48 21-232 U/L Troponin I High Sensitivity 72.3 *H 4-50 ng/L Vitamin B12 Level 1343 H 193-986 pg/mL Vitamin D 25-Hydroxy 27.6 30.0-100.0 ng/mL Test 03/31/24 13:01 03/31/24 11:19 Range/Units Lactic Acid Level 1.9 0.8-2.5 mmol/L Hemoglobin A1c 11.0 H 4.0-6.0 % Estimated Average Glucose (eAG) 269 H 70-126 mg/dL Iron Level 8 L 50-170 mcg/dL Total Iron Binding Capacity 337 250-450 mcg/dL Percent Iron Saturation 2.3 L 22-44 % Ferritin 9 L 15-150 ng/mL Total Bilirubin 0.3 0.2-1.0 mg/dL Direct Bilirubin 0.1 0.0-0.3 mg/dL Aspartate Amino Transf (AST/SGOT) 12 10-37 U/L Alanine Aminotransferase (ALT/SGPT) 12 12-78 U/L Alkaline Phosphatase 97 50-136 U/L Lactate Dehydrogenase 210 81-234 U/L C-Reactive Protein, Quantitative 86.00 H 0.5-3.0 mg/L B-Type Natriuretic Peptide 109 H 0-100 pg/mL Total Protein 7.6 6.0-8.3 g/dL Albumin 3.1 L 3.5-5.0 g/dL Triglycerides Level 135 30-200 mg/dL Cholesterol Level 112 <200 mg/dL LDL Cholesterol 67 0-99 mg/dL HDL Cholesterol 25 L 35-85 mg/dL Folic Acid (LAB) 19.00 2-20 ng/mL Procalcitonin 0.09 0.05-0.5 ng/mL Thyroid Stimulating Hormone (TSH) 0.64 0.36-3.74 uIU/mL Serum Test, Qualitative NEGATIVE NEGATIVE Coagulation Labs: Test 03/31/24 11:19 Range/Units Prothrombin Time 11.5 9.6-11.6 SEC Prothromb Time International Ratio 1.07 0.85-1.15 Activated Partial Thromboplast Time 24.7 L 26.3-35.5 SEC D-Dimer Quantitative (PE/DVT) 674 *H 0-500 ng/mL Diagnostics / Radiology: Impression and Plan: Elevated troponin Community-acquired pneumonia Elevated D-Dimer at 674 Microcytic anemia HTN Menometrorrhagia Type 2 diabetes mellitus, uncontrolled with hemoglobin A1c of 11% Lack of consistent healthcare access Urine drug screen positive for marijuana -Minimally elevated Troponin levels of 133, 100, and 72.3 in a flat pattern, not ACS -2D echo on 04/01/2024 with an LVEF of 60-65%, normal LV segmental wall motion, normal LV diastolic function, no valvular pathology, unable to accurately assess pulmonary artery pressure due to inadequate TR jet, however right-sided chamber sizes and RV systolic function is normal -Keep the patient on continuous telemetry monitoring -Cardiology will sign off, follow-up with Dr. Roman in 7-10 days after discharge. Given her risk factors (underlying hypertension, uncontrolled type 2 diabetes mellitus and family history of early coronary artery disease), would recommend additional evaluation as an outpatient by way of coronary CT angiography [facility] Apr 02, 2024 10:41
[2024-04-02] MEDS: Solu-medROL 40MG VIAL IVP SCH (16:06)
--- NOTE | 2024-04-02 16:28 | PN ---
[facility] PROGRESS NOTE Date Patient Seen: Apr 02, 2024 Time of Visit: 16:26 Supervising Physician: Yrn Contreras Primary Care Physician: No family doctor Outpatient Specialists: MANUELITO Inpatient Consults: Dr. Cordero, Dr. Montano PROBLEM LIST: Acute hypoxic respiratory failure Community-acquired pneumonia Hyperglycemia in the setting of type 2 diabetes mellitus, which is uncontrolled with hemoglobin A1c 11.0 Substance abuse: Marijuana Microcytic normochromic anemia- iron deficient Leukocytosis with no left shift Acute likely on chronic congestive heart failure with unknown ejection fraction Obesity BMI of 40 History of obesity, current marijuana use, hypertension, diabetes mellitus INTERVAL HISTORY: 04/01 patient is awake alert oriented x3 sitting up side of the bed coughing. Overnight patient did not tolerate CPAP. She also had respiratory stridor early this morning and she received one dose of racemic epi nebulizer. This morning she is on 3 L nasal cannula saturation oxygen of 95%. We will add continuous pulse ox. Have racemic epi evailable for stridor. Add antitussive. Change Atrovent to DuoNeb given wheezing. Continue with IV steroid. Patient is negative for flu, COVID, and group a strep. Add anti leukotrient. Incentive spirometry. Continue antibiotics for cap coverage. CT scan of the neck for soft tissue has been requested, we will follow up with results. In addition, Her glucose is up to 390. Insulin has been adjusted. Continue for closely. 04/02 patient is sitting up at the side of the bed not in acute distress, she remains on 3 L nasal cannula with saturation oxygen of 97%. She actually feels much better no stridor event overnight. She also has less cough. CT scan of the soft tissue of the neck and the chest with no significant laryngeal abnormalities. Patient has bilateral pulmonary infiltrates. We will continue with current management steroids, nebulizer, antibiotics. Decrease systemic steroid. Sputum culture with rare Gram-positive cocci. Patient also had echocardiogram with EF of 60 to 65%. Patient is anemic, continue with iron supplementation. Glucose is up high in 300, increased insulin coverage. Given improvement in condition, there is no immediate need for an invasive bronchoscopy at this time. We will obtain chest x-ray in the morning. REVIEW OF SYSTEMS: 12 point ROS reviewed with patient. Pertinent positives mentioned above. Otherwise negative. PHYSICAL EXAM: GENERAL: alert, weak, awake oriented x 3 HEENT: EOMI, Sclera non icteric, moist mucosa NECK: Supple, no JVD, trachea midline LUNGS: Rales throughout, respiratory wheezing. HEART: Regular rate and rhythm. Normal S1 and S2, without murmurs ABD: Abdomen soft, nontender. Bowel sounds present EXT: No clubbing cyanosis or edema NEURO: Alert and oriented to person, follows commands Vital Signs (last 8hr) Date Time Temp Pulse Resp B/P (MAP) Pulse Ox O2 Delivery O2 Flow Rate FiO2 04/02/24 14:58 78 18 04/02/24 11:28 98.4 74 18 157/90 97 Nasal Cannula 3.0 04/02/24 10:32 96 Nasal Cannula* 3 32 04/02/24 10:09 18 N/Cannula Low lpm 2.0 28 04/02/24 10:08 85 18 LABS: Hematology Labs: Test 04/02/24 03:17 Range/Units White Blood Count 14.0 H 4.8-10.8 K/uL Red Blood Count 4.86 4.00-5.50 MIL/uL Hemoglobin 7.0 *L 12.0-16.0 g/dL Hematocrit 28.9 L 36-48 % Mean Corpuscular Volume 59.5 L 79-99 fL Mean Corpuscular Hemoglobin 14.4 L 27.0-33.0 pg Mean Corpuscular Hemoglobin Concent 24.2 L 32.0-36.0 g/dL Red Cell Distribution Width 19.2 H 11.0-15.5 % Platelet Count 403 H 130-400 K/uL Mean Platelet Volume 7.5-10.5 fL Immature Granulocyte % (Auto) 5.1 H 0-1 % Neutrophils (%) (Auto) 84.5 H 40.0-77.0 % Lymphocytes (%) (Auto) 6.5 L 21.0-51.0 % Monocytes (%) (Auto) 3.1 3.0-13.0 % Eosinophils (%) (Auto) 0.2 0.0-8.0 % Basophils (%) (Auto) 0.6 0.0-5.0 % Neutrophils # (Auto) 11.9 H 1.8-7.7 K/uL Lymphocytes # (Auto) 0.9 L 1.0-4.8 K/uL Monocytes # (Auto) 0.4 0.1-1.0 K/uL Eosinophils # (Auto) 0.03 0.00-0.70 K/uL Basophils # (Auto) 0.08 0.00-0.20 K/uL Absolute Immature Granulocyte (auto 0.71 0-1 K/uL Nucleated Red Blood Cells 0.9 H 0.0-0.19 % White Cell Morphology Comment See comments Chemistry Labs: Test 04/02/24 16:09 04/02/24 03:17 04/01/24 05:15 04/01/24 03:59 Range/Units Whole Blood Glucose 301 H 70-110 MG/DL Sodium Level 140 136-145 mmol/L Potassium Level 4.1 3.5-5.1 mmol/L Chloride Level 102 101-111 mmol/L Carbon Dioxide Level 33 H 21-32 mmol/L Blood Urea Nitrogen 14 7-18 mg/dL Creatinine 0.7 0.5-1.0 mg/dL Glomerular Filtration Rate Calc 111 >90 mL/min Random Glucose 333 H 70-105 mg/dL Total Calcium 8.4 L 8.5-10.1 mg/dL Phosphorus Level 3.0 2.5-4.9 mg/dL Magnesium Level 1.80 1.80-2.40 mg/dL Bedside Glucose Comment Notified Nurse Total Creatine Kinase 48 21-232 U/L Troponin I High Sensitivity 72.3 *H 4-50 ng/L Vitamin B12 Level 1343 H 193-986 pg/mL Vitamin D 25-Hydroxy 27.6 30.0-100.0 ng/mL DIAGNOSTICS / RADIOLOGY RESULTS: [ ] PLAN NEURO: Minimize central acting medications as possible. Maintain fall precautions, adequate lighting during the day PULMONARY: Supplemental 02 as needed. Maintain aspiration precautions at all times Oxygen supplementation CP overnight Antibiotic for community-acquired, Tapering steroids CARDIOVASCULAR: Follow hemodynamics. Vital signs per facility protocol Trend BNP Echocardiogram GI & NUTRITION: Continue with nutritional support. Continue stool softeners and laxatives as needed. Bowel regimen KIDNEYS & ELECTROLYTES: Strict monitoring of intake, output and overall fluid balance. Avoid nephrotoxic medications to the extent possible. Medications to be dosed according to renal function. Monitor electrolytes and replace as needed Iron panel is low, ferrous sulfate ENDOCRINE: Maintain blood glucose between 100-180 at all times. Hypoglycemia protocol in place Insulin sliding scale Hemoglobin A1c is 11, patient will need long-acting insulin. Diabetic education Weight management INFECTIOUS DISEASE: Trend temperature, WBC and procalcitonin level Follow cultures, deescalate antibiotics as soon as possible. Panculture if new onset fever ONCOLOGY/HEMATOLOGY/COAGULATION: Monitor for s/s of bleeding Monitor hemoglobin, coagulation studies as needed SKIN: Pressure ulcer prevention per facility protocol Specialty mattress ORTHO/REHAB: Continue PT/OT Prophylaxis: Continue GI and DVT prophylaxis Code Status: Full Resuscitation Disposition: TBD Other: Social for Substance abuse cessation Total patient care time exceeds 35 minutes excluding all procedures. SUKI GONSALEZ [facility] Apr 02, 2024 16:28
--- NOTE | 2024-04-02 17:39 | NUR ---
DC PLAN PATIENT LIVES WITH CHILDREN. INDEPENDENT ABLE TO PERFORM ADL'S. PATIENT HAS NO SERVICES OR DME'S. FEELS SAFE TO RETURN HOME. SAID PENDING TO BE SEEN AT [facility] TO SET UP PCP. EXPLAINED THAT SINCE WAS IN HOSPITAL IF SHE CALLS [facility] THEY MIGHT BE ABLE TO BUMP HER UP TO BE SEEN POST HOSPITAL TO PREVENT READMISSION. Addendum: 04/02/24 at 1748 by NIKOS LARIOS RN CM Amended: Links added.
[2024-04-02] MEDS: BUDESONIDE 0.5 MG/2 ML INH IH SCH (18:55)
--- NOTE | 2024-04-02 21:38 | PN ---
43-year-old female with history of uncontrolled type 2 diabetes mellitus, hypertension who presented to the ER with chief complaint of shortness of breath. Symptoms of shortness of breath have been ongoing for the past several months and has progressively worsened over the past one week. She has noticed subjective fevers, chills and malaise over the last several days. He has been having dry cough as well. She reports having dyspnea on exertion with minimal activities. She also reports having PND and orthopnea. Denies previous history of cardiac or pulmonary comorbidities. She has not been able to follow up with a physician regularly as outpatient due to issues with medical insurance. Also reports having history of heavy periods which has been ongoing for the past five years. Reports having heavy periods for three weeks where she passes blood clots as well. Denies noticing hematemesis, hematochezia, or melena. Denies hemoptysis or hematuria. Denies history of bleeding issues. Reports that she needed blood transfusion about 20 years ago due to an . She has had nine previous pregnancies with seven kids. Currently denies active smoking or alcohol consumption. She works as a care provider. She has been taking care of her son who he recently underwent surgery in [facility] for a torn ACL. She was visiting him in the hospital yesterday. On presentation to the hospital, patient was noted to be tachycardic with heart rate of 98, T-max of 99.0 F and blood pressure of 146/91. Labs [place] [address], hemoglobin of 7.8, MCV of 59, platelet count of 630196. CMP remarkable for corrected sodium of 137, potassium 3.4, creatinine 0.6, blood glucose of 376, cardiac panel of 133, BUN of 109. Chest x-ray showed left lower lobe infiltrate concerning for pneumonia. Patient was found to have iron deficiency anemia with the patient was started on IV iron. Direct Florecita was negative. Ultrasound to the pelvic area was negative. CT scan of the chest was negative for PE PHYSICAL EXAM GENERAL APPEARANCE: The patient is awake, alert, and oriented, in no acute cardiopulmonary distress. NEUROLOGICAL: Cranial nerves II-XII grossly intact. Motor is 5/5 in bilateral upper and lower extremities proximal to distal. No sensory deficits. HEENT: Face is symmetric. Pupils are equal and reactive. Extraocular movements are intact. NECK: Supple. No JVD. No thyromegaly. No submental, submandibular, pre- /postauricular, occipital or supraclavicular lymphadenopathy. CHEST: Normal chest expansion. No Telemetry. LUNGS: Absence of any rales, rhonchi or any wheezing. CARDIOVASCULAR: Regular. S1 and S2 normal. No appreciable rubs, murmurs or gallops. ABDOMEN: Soft, nontender, and nondistended. There is no rebound, voluntary guarding, or rigidity. : Deferred. No Berg. EXTREMITIES: Non-edematous and not cyanotic. No clubbing. Good capillary refill. SKIN: No skin breakdown. Assessment 1. Anemia which look like multifactorial including iron deficiency anemia. Direct Florecita was negative. 2. Left lower lobe community-acquired pneumonia 3. Leukocytosis 4. Reactive thrombocytosis 5. Uncontrolled diabetes mellitus 6. Vaginal bleeding for few years. Pelvis ultrasound was negative. Plan 1. Patient with iron deficiency anemia with the patient was started on IV iron. Direct Florecita was negative. 2. There was hypersegmented neutrophils. This patient to continue on folic acid 1 mg p.o. daily and vitamin B12 1000 mcg p.o. daily. 3. Continue IV while patient in hospital. This patient will need oral iron supplement at least for 6 months 4. This patient need to be seen by [employer]. Ultrasound of the pelvis was negative. 5. This patient is stable and could be discharged to follow-up with me in the next 3 to 4 weeks Vitals/Labs Vital Signs Date Time Temp Pulse Resp B/P (MAP) Pulse Ox O2 Delivery O2 Flow Rate FiO2 04/02/24 19:14 98.4 97 16 139/79 93 Room Air 04/02/24 18:59 21 04/02/24 11:28 3.0 Laboratory Tests 04/02/24 03:17 Medications Current Medications Loratadine 10 mg ONCE ONCE PO Last administered on 03/31/24at 11:20; Start 03/31/24 at 11:30; Stop 03/31/24 at 11:31; Status DC Insulin Human Regular 5 unit ONCE ONCE SQ Last administered on 03/31/24at 14:18; Start 03/31/24 at 12:00; Stop 03/31/24 at 12:04; Status DC Vancomycin HCl 1 gm ONCE ONCE IV; Start 03/31/24 at 12:00; Stop 03/31/24 at 12:07; Status DC Piperacillin Sod/ Tazobactam Sod 3.375 gm ONCE ONCE IV Last administered on 03/31/24at 13:10; Start 03/31/24 at 12:00; Stop 03/31/24 at 12:07; Status DC Pantoprazole Sodium 80 mg ONCE ONCE IVP Last administered on 03/31/24at 13:10; Start 03/31/24 at 12:30; Stop 03/31/24 at 12:31; Status DC Ipratropium Gentry 0.5 MG ONCE ONCE IH Last administered on 03/31/24at 13:10; Start 03/31/24 at 12:30; Stop 03/31/24 at 12:31; Status DC Budesonide 0.5 mg STK-MED ONCE IH Last administered on 03/31/24at 13:12; Start 03/31/24 at 12:29; Stop 03/31/24 at 12:29; Status DC Vancomycin HCl 1 each AD IV; Start 03/31/24 at 13:00; Stop 04/14/24 at 12:59 Doxycycline Hyclate 100 mg Q12H PO Last administered on 04/01/24at 01:13; Start 03/31/24 at 13:00; Stop 04/01/24 at 07:56; Status DC Pantoprazole Sodium 40 mg DAILY IVP Last administered on 04/02/24at 08:55; Start 04/01/24 at 09:00; Stop 05/01/24 at 08:59 Ipratropium Gentry 0.5 mg Q6H IH Last administered on 04/01/24at 07:05; Start 03/31/24 at 18:00; Stop 04/01/24 at 10:29; Status DC Acetaminophen 500 mg Q6H PRN PO; Start 03/31/24 at 13:00; Stop 04/30/24 at 12:59 Cefepime HCl 2 gm Q12H IVPB Last administered on 04/02/24at 16:05; Start 03/31/24 at 16:00; Stop 04/10/24 at 15:59 Ondansetron HCl 4 mg Q6H PRN IVP; Start 03/31/24 at 13:00; Stop 04/30/24 at 12:59 Potassium Chloride 100 ml @ 100 mls/hr AD PRN IV; Start 03/31/24 at 13:00; Stop 04/30/24 at 12:59 Potassium Chloride 20 meq AD PRN PO Last administered on 03/31/24at 19:26; Start 03/31/24 at 13:00; Stop 04/30/24 at 12:59 Potassium Chloride 20 meq AD PRN PO; Start 03/31/24 at 13:00; Stop 04/30/24 at 12:59 Vancomycin HCl 500 ml @ 250 mls/hr ONCE ONCE IV Last administered on 03/31/24at 13:42; Start 03/31/24 at 13:30; Stop 03/31/24 at 15:29; Status DC Insulin Human Regular INSULIN SLIDING SCAL... ACHS SQ; Start 03/31/24 at 16:30; Stop 03/31/24 at 15:28; Status DC Magnesium Sulfate 50 ml @ 0 mls/hr PROTOCOL IV; Start 03/31/24 at 13:00; Stop 04/30/24 at 12:59 Folic Acid 1 mg DAILY PO Last administered on 04/02/24at 08:55; Start 04/01/24 at 09:00; Stop 05/01/24 at 08:59 Vancomycin HCl 250 ml @ 125 mls/hr Q8H IV; Start 03/31/24 at 21:30; Stop 03/31/24 at 19:24; Status DC Iron Sucrose 300 mg/Sodium Chloride 250 ml @ 83 mls/hr DAILY IV; Start 04/01/24 at 09:00; Stop 03/31/24 at 13:51; Status DC Sodium Chloride 1,000 ml @ 75 mls/hr [id number] IV Last administered on 04/02/24at 04:49; Start 03/31/24 at 13:30; Stop 04/02/24 at 16:26; Status DC Budesonide 0.5 mg STK-MED ONCE IH; Start 03/31/24 at 13:09; Stop 03/31/24 at 13:09; Status DC Budesonide 0.5 mg STK-MED ONCE IH Last administered on 03/31/24at 15:06; Start 03/31/24 at 13:12; Stop 03/31/24 at 13:12; Status DC Guaifenesin/ Dextromethorphan 10 ml Q6H PRN PO Last administered on 04/01/24at 18:04; Start 03/31/24 at 13:30; Stop 04/30/24 at 13:29 Iron Sucrose 300 mg/Sodium Chloride 250 ml @ 83 mls/hr Q24H IV; Start 03/31/24 at 14:00; Stop 03/31/24 at 16:05; Status DC Amlodipine Besylate 5 mg Q24H PO Last administered on 03/31/24at 14:17; Start 03/31/24 at 14:30; Stop 04/01/24 at 01:33; Status DC Sodium Chloride 4 ml STK-MED ONCE IH Last administered on 03/31/24at 14:29; Start 03/31/24 at 14:24; Stop 03/31/24 at 14:24; Status DC Insulin Glargine 15 units HS SQ; Start 03/31/24 at 21:00; Stop 03/31/24 at 15:28; Status DC Polyethylene Glycol 17 gm DAILY PO Last administered on 04/02/24at 08:55; Start 04/01/24 at 09:00; Stop 05/01/24 at 08:59 Methylprednisolone Sodium Succinate 40 mg Q8H IVP Last administered on 04/01/24at 09:04; Start 03/31/24 at 15:30; Stop 04/01/24 at 10:37; Status DC Insulin Glargine 20 units HS SQ Last administered on 03/31/24at 20:44; Start 03/31/24 at 21:00; Stop 04/01/24 at 07:53; Status DC Insulin Human Regular INSULIN SLIDING SCAL... ACHS SQ Last administered on 04/02/24at 20:41; Start 03/31/24 at 16:30; Stop 04/30/24 at 16:29 Iron Sucrose 300 mg/Sodium Chloride 250 ml @ 83 mls/hr DAILY IV Last administered on 04/02/24at 09:01; Start 04/01/24 at 09:00; Stop 04/03/24 at 12:01 Vancomycin HCl 250 ml @ 125 mls/hr Q8H IV Last administered on 04/01/24at 06:45; Start 03/31/24 at 23:30; Stop 04/01/24 at 15:17; Status DC Epinephrine 1 ml ONCE PRN NEB Last administered on 04/01/24at 03:34; Start 03/31/24 at 19:30; Stop 04/30/24 at 19:29 Magnesium Sulfate 50 ml @ 0 mls/hr PROTOCOL PRN IV; Start 03/31/24 at 19:30; Stop 03/31/24 at 19:30; Status DC Amlodipine Besylate 5 mg BID PO Last administered on 04/02/24at 20:28; Start 04/01/24 at 09:00; Stop 04/30/24 at 14:29 Sodium Chloride 3 ml STK-MED ONCE IH Last administered on 04/01/24at 03:34; Start 04/01/24 at 02:57; Stop 04/01/24 at 02:58; Status DC Insulin Glargine 20 units BID SQ Last administered on 04/01/24at 21:20; Start 04/01/24 at 08:00; Stop 04/02/24 at 08:30; Status DC Albuterol 1 udvial Q4H IH Last administered on 04/02/24at 18:55; Start 04/01/24 at 10:30; Stop 05/01/24 at 10:29 Benzonatate 100 mg Q8H PO Last administered on 04/02/24at 20:28; Start 04/01/24 at 10:30; Stop 05/01/24 at 10:29 Chlorphenir/ Hydrocodone Polistirex 5 ml Q12H PO; Start 04/01/24 at 10:30; Stop 04/01/24 at 10:31; Status DC Montelukast Sodium 10 mg HS PO Last administered on 04/02/24at 20:28; Start 04/01/24 at 21:00; Stop 05/01/24 at 20:59 Methylprednisolone Sodium Succinate 60 mg Q8H IVP Last administered on 04/02/24at 09:01; Start 04/01/24 at 15:30; Stop 04/02/24 at 12:32; Status DC Vancomycin HCl 250 ml @ 125 mls/hr Q8H IV Last administered on 04/02/24at 20:27; Start 04/01/24 at 18:00; Stop 04/02/24 at 21:13; Status DC Insulin Glargine 40 units BID SQ Last administered on 04/02/24at 20:41; Start 04/02/24 at 09:00; Stop 05/02/24 at 08:59 Budesonide 0.5 mg BIDRESP IH Last administered on 04/02/24at 18:55; Start 04/02/24 at 18:00; Stop 05/02/24 at 17:59 Methylprednisolone Sodium Succinate 40 mg Q8H IVP Last administered on 04/02/24at 16:06; Start 04/02/24 at 15:30; Stop 05/02/24 at 15:29 Vancomycin HCl 250 ml @ 125 mls/hr Q8H IV; Start 04/03/24 at 04:30; Stop 04/13/24 at 04:29 JAMI PINEDA MD Apr 02, 2024 21:38
--- NOTE | 2024-04-02 23:17 | NUR ---
CALL MADE TO REPORT PT HIGH BLOOD SUGARS. ALREADY ON SLIDING SCALE #2. PATIENT ALSO TAKING SOLUMEDROL IV. CALL MADE TO HOSPITALIST. PENDING CALL BACK. Addendum: 04/03/24 at 0245 by ROSALIE MARTINES RN RN order received for blood sugars q4hrs with sliding scale #2.
[2024-04-03] VITALS (9 sets, daily range): BP systolic 145–170; BP diastolic 60–95; PULSE 72–89; RESP 16–18; TEMP 98–98.7; O2SAT 95
[2024-04-03 04:33] LABS: BASOPHILS # (AUTO) 0.11 K/uL (0.00-0.20); BASOPHILS % (AUTO) 0.5 % (0.0-5.0); EOSINOPHILS # (AUTO) 0.01 K/uL (0.00-0.70); HEMATOCRIT 29.3 % (36-48); IMMATURE GRANULOCYTE ABSOLUTE 1.91 K/uL (0-1); LYMPHOCYTES # (AUTO) 1.7 K/uL (1.0-4.8); LYMPHOCYTES % (AUTO) 7.3 % (21.0-51.0); MEAN CORPUSCULAR HEMOGLOBIN 14.9 pg (27.0-33.0); MEAN CORPUSCULAR HGB CONC 24.6 g/dL (32.0-36.0); MEAN CORPUSCULAR VOLUME 60.7 fL (79-99); NEUTROPHILS # (AUTO) 19.3 K/uL (1.8-7.7); NEUTROPHILS % (AUTO) 80.2 % (40.0-77.0); NUCLEATED RED BLOOD CELLS 0.8 % (0.0-0.19); PLATELET COUNT (AUTO) 368 K/uL (130-400); RED BLOOD CELL COUNT(AUTO) 4.83 MIL/uL (4.00-5.50); RED CELL DISTRIBUTION WIDTH 20.2 % (11.0-15.5)
[2024-04-03 04:40] LABS: CREATININE 0.8 mg/dL (0.5-1.0); POTASSIUM 4.1 mmol/L (3.5-5.1)
[2024-04-03] MEDS: VANCOMYCIN 1.25 GM/250 ML BAG 250 ML IV SCH (04:55)
[2024-04-03] MEDS: INSULIN humuLIN R 100 UNIT/ML 3ML SQ SCH (05:44)
--- NOTE | 2024-04-03 08:26 | PN ---
43-year-old female with history of uncontrolled type 2 diabetes mellitus, hypertension who presented to the ER with chief complaint of shortness of breath. Symptoms of shortness of breath have been ongoing for the past several months and has progressively worsened over the past one week. She has noticed subjective fevers, chills and malaise over the last several days. He has been having dry cough as well. She reports having dyspnea on exertion with minimal activities. She also reports having PND and orthopnea. Denies previous history of cardiac or pulmonary comorbidities. She has not been able to follow up with a physician regularly as outpatient due to issues with medical insurance. Also reports having history of heavy periods which has been ongoing for the past five years. Reports having heavy periods for three weeks where she passes blood clots as well. Denies noticing hematemesis, hematochezia, or melena. Denies hemoptysis or hematuria. Denies history of bleeding issues. Reports that she needed blood transfusion about 20 years ago due to an . She has had nine previous pregnancies with seven kids. Currently denies active smoking or alcohol consumption. She works as a care provider. She has been taking care of her son who he recently underwent surgery in [facility] for a torn ACL. She was visiting him in the hospital yesterday. On presentation to the hospital, patient was noted to be tachycardic with heart rate of 98, T-max of 99.0 F and blood pressure of 146/91. [place] [address], hemoglobin of 7.8, MCV of 59, platelet count of 265103. CMP remarkable for corrected sodium of 137, potassium 3.4, creatinine 0.6, blood glucose of 376, cardiac panel of 133, BUN of 109. Chest x-ray showed left lower lobe infiltrate concerning for pneumonia. Patient was found to have iron deficiency anemia with the patient was started on IV iron. Direct Florecita was negative. Ultrasound to the pelvic area was negative. CT scan of the chest was negative for PE PHYSICAL EXAM GENERAL APPEARANCE: The patient is awake, alert, and oriented, in no acute cardiopulmonary distress. NEUROLOGICAL: Cranial nerves II-XII grossly intact. Motor is 5/5 in bilateral upper and lower extremities proximal to distal. No sensory deficits. HEENT: Face is symmetric. Pupils are equal and reactive. Extraocular movements are intact. NECK: Supple. No JVD. No thyromegaly. No submental, submandibular, pre- /postauricular, occipital or supraclavicular lymphadenopathy. CHEST: Normal chest expansion. No Telemetry. LUNGS: Absence of any rales, rhonchi or any wheezing. CARDIOVASCULAR: Regular. S1 and S2 normal. No appreciable rubs, murmurs or gallops. ABDOMEN: Soft, nontender, and nondistended. There is no rebound, voluntary guarding, or rigidity. : Deferred. No Berg. EXTREMITIES: Non-edematous and not cyanotic. No clubbing. Good capillary refill. SKIN: No skin breakdown. Assessment 1. Anemia which look like multifactorial including iron deficiency anemia. Direct Florecita was negative. 2. Left lower lobe community-acquired pneumonia 3. Leukocytosis 4. Reactive thrombocytosis 5. Uncontrolled diabetes mellitus 6. Vaginal bleeding for few years. Pelvis ultrasound was negative. Plan 1. Patient with iron deficiency anemia with the patient was started on IV iron. Direct Florecita was negative. 2. There was hypersegmented neutrophils. This patient to continue on folic acid 1 mg p.o. daily and vitamin B12 1000 mcg p.o. daily. 3. Continue IV while patient in hospital. This patient will need oral iron supplement at least for 6 months 4. This patient need to be seen by [facility]. Ultrasound of the pelvis was negative. 5. This patient is stable and could be discharged to follow-up with me in the next 3 to 4 weeks Vitals/Labs Vital Signs Date Time Temp Pulse Resp B/P (MAP) Pulse Ox O2 Delivery O2 Flow Rate FiO2 04/03/24 07:24 74 18 04/03/24 07:23 N/A Room Air 21 04/03/24 07:00 98.1 145/60 96 04/02/24 20:00 0 Laboratory Tests 04/03/24 04:13 Medications Current Medications Loratadine 10 mg ONCE ONCE PO Last administered on 03/31/24at 11:20; Start 03/31/24 at 11:30; Stop 03/31/24 at 11:31; Status DC Insulin Human Regular 5 unit ONCE ONCE SQ Last administered on 03/31/24at 14:18; Start 03/31/24 at 12:00; Stop 03/31/24 at 12:04; Status DC Vancomycin HCl 1 gm ONCE ONCE IV; Start 03/31/24 at 12:00; Stop 03/31/24 at 12:07; Status DC Piperacillin Sod/ Tazobactam Sod 3.375 gm ONCE ONCE IV Last administered on 03/31/24at 13:10; Start 03/31/24 at 12:00; Stop 03/31/24 at 12:07; Status DC Pantoprazole Sodium 80 mg ONCE ONCE IVP Last administered on 03/31/24at 13:10; Start 03/31/24 at 12:30; Stop 03/31/24 at 12:31; Status DC Ipratropium Mica 0.5 MG ONCE ONCE IH Last administered on 03/31/24at 13:10; Start 03/31/24 at 12:30; Stop 03/31/24 at 12:31; Status DC Budesonide 0.5 mg STK-MED ONCE IH Last administered on 03/31/24at 13:12; Start 03/31/24 at 12:29; Stop 03/31/24 at 12:29; Status DC Vancomycin HCl 1 each AD IV; Start 03/31/24 at 13:00; Stop 04/14/24 at 12:59 Doxycycline Hyclate 100 mg Q12H PO Last administered on 04/01/24at 01:13; Start 03/31/24 at 13:00; Stop 04/01/24 at 07:56; Status DC Pantoprazole Sodium 40 mg DAILY IVP Last administered on 04/02/24at 08:55; Start 04/01/24 at 09:00; Stop 05/01/24 at 08:59 Ipratropium Mica 0.5 mg Q6H IH Last administered on 04/01/24at 07:05; Start 03/31/24 at 18:00; Stop 04/01/24 at 10:29; Status DC Acetaminophen 500 mg Q6H PRN PO; Start 03/31/24 at 13:00; Stop 04/30/24 at 12:59 Cefepime HCl 2 gm Q12H IVPB Last administered on 04/03/24at 03:59; Start 03/31/24 at 16:00; Stop 04/10/24 at 15:59 Ondansetron HCl 4 mg Q6H PRN IVP; Start 03/31/24 at 13:00; Stop 04/30/24 at 12:59 Potassium Chloride 100 ml @ 100 mls/hr AD PRN IV; Start 03/31/24 at 13:00; Stop 04/30/24 at 12:59 Potassium Chloride 20 meq AD PRN PO Last administered on 03/31/24at 19:26; Start 03/31/24 at 13:00; Stop 04/30/24 at 12:59 Potassium Chloride 20 meq AD PRN PO; Start 03/31/24 at 13:00; Stop 04/30/24 at 12:59 Vancomycin HCl 500 ml @ 250 mls/hr ONCE ONCE IV Last administered on 03/31/24at 13:42; Start 03/31/24 at 13:30; Stop 03/31/24 at 15:29; Status DC Insulin Human Regular INSULIN SLIDING SCAL... ACHS SQ; Start 03/31/24 at 16:30; Stop 03/31/24 at 15:28; Status DC Magnesium Sulfate 50 ml @ 0 mls/hr PROTOCOL IV; Start 03/31/24 at 13:00; Stop 04/30/24 at 12:59 Folic Acid 1 mg DAILY PO Last administered on 04/02/24at 08:55; Start 04/01/24 at 09:00; Stop 05/01/24 at 08:59 Vancomycin HCl 250 ml @ 125 mls/hr Q8H IV; Start 03/31/24 at 21:30; Stop 03/31/24 at 19:24; Status DC Iron Sucrose 300 mg/Sodium Chloride 250 ml @ 83 mls/hr DAILY IV; Start 04/01/24 at 09:00; Stop 03/31/24 at 13:51; Status DC Sodium Chloride 1,000 ml @ 75 mls/hr [id number] IV Last administered on 04/02/24at 04:49; Start 03/31/24 at 13:30; Stop 04/02/24 at 16:26; Status DC Budesonide 0.5 mg STK-MED ONCE IH; Start 03/31/24 at 13:09; Stop 03/31/24 at 13:09; Status DC Budesonide 0.5 mg STK-MED ONCE IH Last administered on 03/31/24at 15:06; Start 03/31/24 at 13:12; Stop 03/31/24 at 13:12; Status DC Guaifenesin/ Dextromethorphan 10 ml Q6H PRN PO Last administered on 04/01/24at 18:04; Start 03/31/24 at 13:30; Stop 04/30/24 at 13:29 Iron Sucrose 300 mg/Sodium Chloride 250 ml @ 83 mls/hr Q24H IV; Start 03/31/24 at 14:00; Stop 03/31/24 at 16:05; Status DC Amlodipine Besylate 5 mg Q24H PO Last administered on 03/31/24at 14:17; Start 03/31/24 at 14:30; Stop 04/01/24 at 01:33; Status DC Sodium Chloride 4 ml STK-MED ONCE IH Last administered on 03/31/24at 14:29; Start 03/31/24 at 14:24; Stop 03/31/24 at 14:24; Status DC Insulin Glargine 15 units HS SQ; Start 03/31/24 at 21:00; Stop 03/31/24 at 15:28; Status DC Polyethylene Glycol 17 gm DAILY PO Last administered on 04/02/24at 08:55; Start 04/01/24 at 09:00; Stop 05/01/24 at 08:59 Methylprednisolone Sodium Succinate 40 mg Q8H IVP Last administered on 04/01/24at 09:04; Start 03/31/24 at 15:30; Stop 04/01/24 at 10:37; Status DC Insulin Glargine 20 units HS SQ Last administered on 03/31/24at 20:44; Start 03/31/24 at 21:00; Stop 04/01/24 at 07:53; Status DC Insulin Human Regular INSULIN SLIDING SCAL... ACHS SQ Last administered on 04/02/24at 20:41; Start 03/31/24 at 16:30; Stop 04/03/24 at 00:55; Status DC Iron Sucrose 300 mg/Sodium Chloride 250 ml @ 83 mls/hr DAILY IV Last administered on 04/02/24at 09:01; Start 04/01/24 at 09:00; Stop 04/03/24 at 12:01 Vancomycin HCl 250 ml @ 125 mls/hr Q8H IV Last administered on 04/01/24at 06:45; Start 03/31/24 at 23:30; Stop 04/01/24 at 15:17; Status DC Epinephrine 1 ml ONCE PRN NEB Last administered on 04/01/24at 03:34; Start 03/31/24 at 19:30; Stop 04/30/24 at 19:29 Magnesium Sulfate 50 ml @ 0 mls/hr PROTOCOL PRN IV; Start 03/31/24 at 19:30; Stop 03/31/24 at 19:30; Status DC Amlodipine Besylate 5 mg BID PO Last administered on 04/02/24at 20:28; Start 04/01/24 at 09:00; Stop 04/30/24 at 14:29 Sodium Chloride 3 ml STK-MED ONCE IH Last administered on 04/01/24at 03:34; Start 04/01/24 at 02:57; Stop 04/01/24 at 02:58; Status DC Insulin Glargine 20 units BID SQ Last administered on 04/01/24at 21:20; Start 04/01/24 at 08:00; Stop 04/02/24 at 08:30; Status DC Albuterol 1 udvial Q4H IH Last administered on 04/03/24at 07:24; Start 04/01/24 at 10:30; Stop 05/01/24 at 10:29 Benzonatate 100 mg Q8H PO Last administered on 04/03/24at 03:59; Start 04/01/24 at 10:30; Stop 05/01/24 at 10:29 Chlorphenir/ Hydrocodone Polistirex 5 ml Q12H PO; Start 04/01/24 at 10:30; Stop 04/01/24 at 10:31; Status DC Montelukast Sodium 10 mg HS PO Last administered on 04/02/24at 20:28; Start 04/01/24 at 21:00; Stop 05/01/24 at 20:59 Methylprednisolone Sodium Succinate 60 mg Q8H IVP Last administered on 04/02/24at 09:01; Start 04/01/24 at 15:30; Stop 04/02/24 at 12:32; Status DC Vancomycin HCl 250 ml @ 125 mls/hr Q8H IV Last administered on 04/02/24at 20:27; Start 04/01/24 at 18:00; Stop 04/02/24 at 21:13; Status DC Insulin Glargine 40 units BID SQ Last administered on 04/02/24at 20:41; Start 04/02/24 at 09:00; Stop 05/02/24 at 08:59 Budesonide 0.5 mg BIDRESP IH Last administered on 04/03/24at 07:24; Start 04/02/24 at 18:00; Stop 05/02/24 at 17:59 Methylprednisolone Sodium Succinate 40 mg Q8H IVP Last administered on 04/03/24at 01:09; Start 04/02/24 at 15:30; Stop 05/02/24 at 15:29 Vancomycin HCl 250 ml @ 125 mls/hr Q8H IV Last administered on 04/03/24at 04:55; Start 04/03/24 at 04:30; Stop 04/13/24 at 04:29 Insulin Human Regular INSULIN SLIDING SCAL... Q4H4 SQ Last administered on 04/03/24at 05:44; Start 04/03/24 at 04:00; Stop 05/03/24 at 03:59 JAMI PINEDA MD Apr 03, 2024 08:25
--- NOTE | 2024-04-03 09:02 | HMCIMG ---
CHEST 1VW HISTORY: Follow-up COMPARISON: None FINDINGS: A frontal projection of the chest was obtained. No acute pulmonary infiltrates is seen. The heart is normal in size. Prominent interstitial markings are seen. IMPRESSION: 1. No acute pulmonary infiltrate is seen.
[2024-04-03] MEDS ORDERED: hydrALAZine 20MG/ML VIAL IV PRN (12:30)
--- NOTE | 2024-04-03 12:32 | PN ---
[facility] PROGRESS NOTE Date of Service: Apr 03, 2024 Time of Service: 12:32 SUBJECTIVE: 04/01 patient seen at bedside, no acute events overnight. She was assessed by OBGYN today who recommends her to follow-up in his clinic where he will do an endometrial biopsy and a repeat pelvic ultrasound. Patient continues having episodes of stridor that have been occurring over the last year she also has a hoarse voice, this is concerning for a possible mass or neurologic issue involving the vocal cords. A CT of the head and neck has been ordered, we will follow up with the results. If it is not revealing a bronchoscopy may be more revealing. She has been afebrile, hemodynamically stable saturating well on 3 L nasal cannula. WBC increased from 13.1 up to 50.1 however she has been started on systemic steroids, hemoglobin improved from 7.4 up to 7.7, platelets elevated at 443, reticulocyte count elevated at 2.38 suggesting adequate hematopoiesis, blood sugar is elevated in the 300s, we will adjust her sliding scale and add glargine. Remainder of her labs are relatively unremarkable. 04/02 patient seen at bedside, no acute events overnight. CT of the head, neck and chest showed no masses or acute abnormalities. We will continue with nebulizer treatments and empiric antibiotics. Although no obvious mass has been noted we will discuss with pulmonology the utility of a bronchoscopy as there could be a vegetation, papilloma or some other abnormality with the vocal cords themselves. Her progressive worsening of hoarseness over the last six months is concerning. We will follow up with pulmonology for further recommendations. Continue with duo nebs and systemic steroids, we will start budesonide as well. 04/03 patient is seen and examined, no acute events overnight, plan for discharge home. REVIEW OF SYSTEMS 12 point review of systems negative unless noted in HPI PHYSICAL EXAM GENERAL APPEARANCE: The patient is awake, alert, and oriented, in no acute cardiopulmonary distress. NEUROLOGICAL: Cranial nerves II-XII grossly intact. Motor is 5/5 in bilateral upper and lower extremities proximal to distal. No sensory deficits. HEENT: Face is symmetric. Pupils are equal and reactive. Extraocular movements are intact. NECK: Supple. No JVD. No thyromegaly. No submental, submandibular, pre- /postauricular, occipital or supraclavicular lymphadenopathy. CHEST: Normal chest expansion. No Telemetry. LUNGS: Crackles noted of the left lung base, no wheezes and rhonchi noted CARDIOVASCULAR: Regular. S1 and S2 normal. No appreciable rubs, murmurs or gallops. ABDOMEN: Soft, nontender, and nondistended. There is no rebound, voluntary guarding, or rigidity. : Deferred. No Berg. EXTREMITIES: no significant edema noted of the bilateral lower extremities SKIN: No skin breakdown. Vital Signs (last 8hr) Date Time Temp Pulse Resp B/P (MAP) Pulse Ox O2 Delivery O2 Flow Rate FiO2 04/03/24 12:07 98.2 89 18 170/95 94 Room Air 04/03/24 10:13 78 18 04/03/24 10:11 78 18 N/A Room Air 21 04/03/24 07:24 74 18 04/03/24 07:23 74 18 N/A Room Air 21 04/03/24 07:00 98.1 88 16 145/60 96 Room Air LABS: Laboratory: Test 04/03/24 10:42 04/03/24 04:13 04/02/24 19:33 04/02/24 17:41 Range/Units Whole Blood Glucose 389 H 70-110 MG/DL White Blood Count 24.0 H 4.8-10.8 K/uL Red Blood Count 4.83 4.00-5.50 MIL/uL Hemoglobin 7.2 L 12.0-16.0 g/dL Hematocrit 29.3 L 36-48 % Mean Corpuscular Volume 60.7 L 79-99 fL Mean Corpuscular Hemoglobin 14.9 L 27.0-33.0 pg Mean Corpuscular Hemoglobin Concent 24.6 L 32.0-36.0 g/dL Red Cell Distribution Width 20.2 H 11.0-15.5 % Platelet Count 368 130-400 K/uL Mean Platelet Volume 7.5-10.5 fL Immature Granulocyte % (Auto) 8.0 H 0-1 % Neutrophils (%) (Auto) 80.2 H 40.0-77.0 % Lymphocytes (%) (Auto) 7.3 L 21.0-51.0 % Monocytes (%) (Auto) 4.0 3.0-13.0 % Eosinophils (%) (Auto) 0.0 0.0-8.0 % Basophils (%) (Auto) 0.5 0.0-5.0 % Neutrophils # (Auto) 19.3 H 1.8-7.7 K/uL Lymphocytes # (Auto) 1.7 1.0-4.8 K/uL Monocytes # (Auto) 1.0 0.1-1.0 K/uL Eosinophils # (Auto) 0.01 0.00-0.70 K/uL Basophils # (Auto) 0.11 0.00-0.20 K/uL Absolute Immature Granulocyte (auto 1.91 H 0-1 K/uL Nucleated Red Blood Cells 0.8 H 0.0-0.19 % Sodium Level 140 136-145 mmol/L Potassium Level 4.1 3.5-5.1 mmol/L Chloride Level 102 101-111 mmol/L Carbon Dioxide Level 30 21-32 mmol/L Blood Urea Nitrogen 14 7-18 mg/dL Creatinine 0.8 0.5-1.0 mg/dL Glomerular Filtration Rate Calc 94 >90 mL/min Random Glucose 326 H 70-105 mg/dL Total Calcium 8.8 8.5-10.1 mg/dL C-Reactive Protein, Quantitative 19.10 H 0.5-3.0 mg/L Bedside Glucose Comment Notified Nurse Vancomycin Level Trough 17.8 # 10.0-20.0 UG/ML Test 04/02/24 03:17 Range/Units White Cell Morphology Comment See comments Phosphorus Level 3.0 2.5-4.9 mg/dL Magnesium Level 1.80 1.80-2.40 mg/dL Current Medications Medications (Trade) Dose Ordered Sig/Emi Route PRN Reason Start Time Stop Time Status Last Admin Dose Admin Acetaminophen (TYLenol 500MG TAB) 500 mg Q6H PRN PO MILD PAIN (1-3) 03/31/24 13:00 04/30/24 12:59 Albuterol (DUOneb) 1 udvial Q4H IH 04/01/24 10:30 05/01/24 10:29 04/03/24 10:13 1 UDVIAL Amlodipine Besylate (NorvASC 5MG TAB) 5 mg BID PO 04/01/24 09:00 04/30/24 14:29 04/03/24 08:48 5 MG Amlodipine Besylate (NorvASC 5MG TAB) 5 mg Q24H PO 03/31/24 14:30 04/01/24 01:33 DC 03/31/24 14:17 5 MG Benzonatate (Tessalon 100mg Caps) 100 mg Q8H PO 04/01/24 10:30 05/01/24 10:29 04/03/24 10:32 100 MG Budesonide (Pulmicort 0.5 Mg/2ml) 0.5 mg BIDRESP IH 04/02/24 18:00 05/02/24 17:59 04/03/24 07:24 0.5 MG Cefepime HCl (MAXipime 2 gm vial) 2 gm Q12H IVPB 03/31/24 16:00 04/10/24 15:59 04/03/24 03:59 2 GM Chlorphenir/ Hydrocodone Polistirex (TUSSionex SUSP 5ML) 5 ml Q12H PO 04/01/24 10:30 04/01/24 10:31 DC Doxycycline Hyclate (Doxycycline Hyclate) 100 mg Q12H PO 03/31/24 13:00 04/01/24 07:56 DC 04/01/24 01:13 100 MG Epinephrine (Racepinephrine Neb Soln) 1 ml ONCE PRN NEB WHEEZING 03/31/24 19:30 04/30/24 19:29 04/01/24 03:34 1 ML Folic Acid (FOLic ACID 1 MG TABLET) 1 mg DAILY PO 04/01/24 09:00 05/01/24 08:59 04/03/24 08:48 1 MG Guaifenesin/ Dextromethorphan (RobiTUSSin DM 200/20MG 10ML) 10 ml Q6H PRN PO COUGH 03/31/24 13:30 04/30/24 13:29 04/01/24 18:04 10 ML Hydralazine HCl (APRESOLine 20MG INJ) 5 mg Q6H PRN IV ADMINISTER FOR SBP > 160 04/03/24 12:30 05/03/24 12:29 Insulin Glargine (LANtus 100 UNITS/ML 10 ML VIAL) 15 units HS SQ 03/31/24 21:00 03/31/24 15:28 DC Insulin Glargine (LANtus 100 UNITS/ML 10 ML VIAL) 20 units BID SQ 04/01/24 08:00 04/02/24 08:30 DC 04/01/24 21:20 20 UNITS Insulin Glargine (LANtus 100 UNITS/ML 10 ML VIAL) 20 units HS SQ 03/31/24 21:00 04/01/24 07:53 DC 03/31/24 20:44 20 UNITS Insulin Glargine (LANtus 100 UNITS/ML 10 ML VIAL) 40 units BID SQ 04/02/24 09:00 05/02/24 08:59 04/03/24 08:51 40 UNITS Insulin Human Regular (humuLIN R 100 UNIT/ML 3ML) INSULIN SLIDING SCAL... ACHS SQ 03/31/24 16:30 03/31/24 15:28 DC Insulin Human Regular (humuLIN R 100 UNIT/ML 3ML) INSULIN SLIDING SCAL... ACHS SQ 03/31/24 16:30 04/03/24 00:55 DC 04/02/24 20:41 20 UNIT Insulin Human Regular (humuLIN R 100 UNIT/ML 3ML) INSULIN SLIDING SCAL... Q4H4 SQ 04/03/24 04:00 05/03/24 03:59 04/03/24 11:39 20 UNIT Ipratropium [place] [employer] (AtrovENT UD) 0.5 mg Q6H IH 03/31/24 18:00 04/01/24 10:29 DC 04/01/24 07:05 0.5 MG Iron Sucrose 300 mg/Sodium Chloride 250 ml @ 83 mls/hr DAILY IV 04/01/24 09:00 03/31/24 13:51 DC Iron Sucrose 300 mg/Sodium Chloride 250 ml @ 83 mls/hr DAILY IV 04/01/24 09:00 04/03/24 12:01 DC 04/03/24 08:48 83 MLS/HR Iron Sucrose 300 mg/Sodium Chloride 250 ml @ 83 mls/hr Q24H IV 03/31/24 14:00 03/31/24 16:05 DC Magnesium Sulfate 50 ml @ 0 mls/hr PROTOCOL IV 03/31/24 13:00 04/30/24 12:59 Magnesium Sulfate 50 ml @ 0 mls/hr PROTOCOL PRN IV AD 03/31/24 19:30 03/31/24 19:30 DC Methylprednisolone Sodium Succinate (Solu-medROL 40MG) 40 mg Q8H IVP 03/31/24 15:30 04/01/24 10:37 DC 04/01/24 09:04 40 MG Methylprednisolone Sodium Succinate (Solu-medROL 40MG) 40 mg Q8H IVP 04/02/24 15:30 05/02/24 15:29 04/03/24 08:49 40 MG Methylprednisolone Sodium Succinate (Solu-medROL 40MG) 60 mg Q8H IVP 04/01/24 15:30 04/02/24 12:32 DC 04/02/24 09:01 60 MG Montelukast Sodium (SinguLAIR) 10 mg HS PO 04/01/24 21:00 05/01/24 20:59 04/02/24 20:28 10 MG Ondansetron HCl (zoFRAN 4MG INJ) 4 mg Q6H PRN IVP NAUSEA/VOMITING 03/31/24 13:00 04/30/24 12:59 Pantoprazole Sodium (PROTonix 40MG INJ) 40 mg DAILY IVP 04/01/24 09:00 05/01/24 08:59 04/03/24 08:47 40 MG Polyethylene Glycol (MIRalax 3350 17 GM POWD.PACK) 17 gm DAILY PO 04/01/24 09:00 05/01/24 08:59 04/03/24 08:48 17 GM Potassium Chloride 100 ml @ 100 mls/hr AD PRN IV POTASSIUM PROTOCOL 03/31/24 13:00 04/30/24 12:59 Potassium Chloride (K-Dur/Klor-Con 20meq) 20 meq AD PRN PO POTASSIUM PROTOCOL 03/31/24 13:00 04/30/24 12:59 Potassium Chloride (KCl 10% Elixir 20meq/15ml) 20 meq AD PRN PO POTASSIUM PROTOCOL 03/31/24 13:00 04/30/24 12:59 03/31/24 19:26 20 MEQ Sodium Chloride 1,000 ml @ 75 mls/hr [id number] IV 03/31/24 13:30 04/02/24 16:26 DC 04/02/24 04:49 75 MLS/HR Vancomycin HCl 250 ml @ 125 mls/hr Q8H IV 03/31/24 21:30 03/31/24 19:24 DC Vancomycin HCl 250 ml @ 125 mls/hr Q8H IV 03/31/24 23:30 04/01/24 15:17 DC 04/01/24 06:45 125 MLS/HR Vancomycin HCl 250 ml @ 125 mls/hr Q8H IV 04/01/24 18:00 04/02/24 21:13 DC 04/02/24 20:27 125 MLS/HR Vancomycin HCl 250 ml @ 125 mls/hr Q8H IV 04/03/24 04:30 04/13/24 04:29 04/03/24 11:37 125 MLS/HR Vancomycin HCl (Vancomycin Protocol) 1 each AD IV 03/31/24 13:00 04/14/24 12:59 DIAGNOSTICS / RADIOLOGY: [ ] ASSESSMENT: Recurrent stridor with hoarseness of voice, POA Acute hypoxemic respiratory failure, POA Concern for Left lower lobe community-acquired pneumonia, POA Severe iron deficiency anemia with underlying history of menorrhagia for five years, POA Demand ischemia, POA Sinus tachycardia with right bundle branch block, POA Leukocytosis POA Hypovolemic hyponatremia, POA Hypokalemia, POA Poorly controlled type 2 diabetes mellitus, last A1C 11.0, POA Hypertension, POA Suspected obstructive sleep apnea, POA Obesity, POA PLAN: Continue PCCU Continue with supplemental O2 therapy to maintain oxygen saturation greater than 92% Continue vancomycin and cefepime Discontinue doxycycline Cultures pending Continue IV hydration with NS at 75 mL/hour x 24 hours as oral intake remains poor, we will check a lactic acid Echo pending, will follow up Continue amlodipine 5 mg bid Pulmonology consulted appreciate recommendations Increase sliding scale sensitivity Start glargine 20 units b.i.d. Continue Pulmicort twice daily and Atrovent q.6 hours OBGYN consulted, appreciate recommendations Disposition: Discharge patient home today, please refer to final summary. CHANEL HERNÁNDEZ MD Apr 03, 2024 12:32
[2024-04-03] MEDS ORDERED: INSU100I35 SQ (14:57)
[2024-04-03] MEDS ORDERED: AMLO5TAB4 PO (14:57)
[2024-04-03] MEDS ORDERED: FERR-63 PO (14:57)
[2024-04-03] MEDS ORDERED: AZIT500T4 PO (14:57)
[2024-04-03] MEDS ORDERED: LISI20TA24 PO (14:57)
[2024-04-03] MEDS ORDERED: CEFD300C3 PO (14:57)
[2024-04-03] MEDS ORDERED: MONT-46 PO (14:57)
[2024-04-03] MEDS ORDERED: FOLI1 PO (14:57)
[2024-04-03] MEDS ORDERED: BENZ-226 PO (14:57)
--- NOTE | 2024-04-03 16:15 | DS ---
Discharge Summary Hospital Course Summary: The patient initially admitted to the hospital on 03/31/2024 with the following history of the present illness: 43-year-old female with history of uncontrolled type 2 diabetes mellitus, hypertension who presented to the ER with chief complaint of shortness of breath. Symptoms of shortness of breath have been ongoing for the past several months and has progressively worsened over the past one week. She has noticed subjective fevers, chills and malaise over the last several days. She has been having dry cough as well. She reported having dyspnea on exertion with minimal activities. She also reported having PND and orthopnea. Denied previous history of cardiac or pulmonary comorbidities. She has not been able to follow up with a physician regularly as outpatient due to issues with medical insurance. Currently denied active smoking or alcohol consumption. On presentation to the hospital, patient was noted to be tachycardic with heart rate of 98, T-max of 99.0 F and blood pressure of 146/91. [place] [address], hemoglobin of 7.8, MCV of 59, platelet count of [id number]. CMP remarkable for corrected sodium of 137, potassium 3.4, creatinine 0.6, blood glucose of 376, cardiac panel of 133, BUN of 109. Chest x-ray showed left lower lobe infiltrate concerning for pneumonia. Patient was admitted for further management of acute hypoxemic respiratory failure, developing left lower lobe pneumonia, severe iron deficiency anemia with history of menorrhagia, demand ischemia . During the course of the hospitalization patient was placed on broad-spectrum IV antibiotics. Results of septic workup were unremarkable. The patient was seen in consultation with Pulmonary physician, recommendations were followed. No need for bronchoscopy during this admission. Today the patient is alert oriented x3, hemodynamically stable, afebrile, saturating normal on room air, no chest pain, no shortness a breath, no nausea, vomiting. Would like to be discharged home. [employer] Research Engineer(s): Pulmonary Assessment/Plan: Final diagnosis Recurrent stridor with hoarseness of voice, POA Acute hypoxemic respiratory failure, POA Concern for Left lower lobe community-acquired pneumonia, POA Severe iron deficiency anemia with underlying history of menorrhagia for five years, POA Demand ischemia, POA Sinus tachycardia with right bundle branch block, POA Leukocytosis POA Hypovolemic hyponatremia, POA Hypokalemia, POA Poorly controlled type 2 diabetes mellitus, last A1C 11.0, POA Hypertension, POA Suspected obstructive sleep apnea, POA Obesity, POA Discharge Instructions: The patient to follow up with her primary care physician as an outpatient and to return to the hospital if her condition changes. Patient agreed with plan and understood the information provided. Home Medications: Active Scripts Lisinopril (Lisinopril) 20 Mg Tablet, 1 TAB PO DAILY for 30 Days, #30 TAB 1 Refill Prov:CHANEL HERNÁNDEZ MD 04/03/24 Ferrous Sulfate (Feosol) 325 Mg (65 Mg Iron) Tablet, 1 TAB PO DAILY for 30 Days, #30 TAB 1 Refill Prov:CHANEL HERNÁNDEZ MD 04/03/24 Cefdinir (Cefdinir) 300 Mg Capsule, 1 CAP PO BID for 5 Days, #10 CAP 0 Refills Prov:CHANEL HERNÁNDEZ MD 04/03/24 Azithromycin (Azithromycin) 500 Mg Tablet, 1 TAB PO DAILY for 5 Days, #5 TAB 0 Refills Prov:CHANEL HERNÁNDEZ MD 04/03/24 Insulin NPH Hum/Reg Insulin Hm (Novolin 70-30 Flexpen) 100 Unit/Ml (70-30) Insuln.pen, 20 UNIT SQ BID for 30 Days, #30 SYRINGE 1 Refill Prov:CHANEL HERNÁNDEZ MD 04/03/24 Montelukast Sodium (Singulair 10Mg) 10 Mg Tab, 10 MG PO HS for 30 Days, #30 TAB 1 Refill Prov:CHANEL HERNÁNDEZ MD 04/03/24 Folic Acid (Folvite) 1 Mg Tab, 1 MG PO DAILY for 30 Days, #30 TAB 1 Refill Prov:CHANEL HERNÁNDEZ MD 04/03/24 Benzonatate (Benzonatate) 100 Mg Capsule, 100 MG PO q8hr prn for 7 Days, #21 CAP 1 Refill Prov:CHANEL HERNÁNDEZ MD 04/03/24 Amlodipine Besylate (Norvasc 5Mg Tab) 5 Mg Tablet, 5 MG PO BID for 30 Days, #60 TAB 1 Refill Prov:CHANEL HERNÁNDEZ MD 04/03/24 Time spent arranging discharge: 31-60 minutes CHANEL HERNÁNDEZ MD Apr 03, 2024 16:15
--- NOTE | 2024-04-03 20:11 | PN ---
[facility] PROGRESS NOTE Date Patient Seen: Apr 03, 2024 Time of Visit: 12:10 Supervising Physician: Dr. Yrn Cordero Primary Care Physician: No family doctor Outpatient Specialists: NA Inpatient Consults: Dr. Cordero, Dr. Montano PROBLEM LIST: Acute hypoxic respiratory failure Community-acquired pneumonia Hyperglycemia in the setting of type 2 diabetes mellitus, which is uncontrolled with hemoglobin A1c 11.0 Substance abuse: Marijuana Microcytic normochromic anemia- iron deficient Leukocytosis with no left shift Acute likely on chronic congestive heart failure with unknown ejection fraction Obesity BMI of 40 History of obesity, current marijuana use, hypertension, diabetes mellitus INTERVAL HISTORY: 04/01 patient is awake alert oriented x3 sitting up side of the bed coughing. Overnight patient did not tolerate CPAP. She also had respiratory stridor early this morning and she received one dose of racemic epi nebulizer. This morning she is on 3 L nasal cannula saturation oxygen of 95%. We will add continuous pulse ox. Have racemic epi evailable for stridor. Add antitussive. Change Atrovent to DuoNeb given wheezing. Continue with IV steroid. Patient is negative for flu, COVID, and group a strep. Add anti leukotrient. Incentive spirometry. Continue antibiotics for cap coverage. CT scan of the neck for soft tissue has been requested, we will follow up with results. In addition, Her glucose is up to 390. Insulin has been adjusted. Continue for closely. 04/02 patient is sitting up at the side of the bed not in acute distress, she remains on 3 L nasal cannula with saturation oxygen of 97%. She actually feels much better no stridor event overnight. She also has less cough. CT scan of the soft tissue of the neck and the chest with no significant laryngeal abnormalities. Patient has bilateral pulmonary infiltrates. We will continue with current management steroids, nebulizer, antibiotics. Decrease systemic steroid. Sputum culture with rare Gram-positive cocci. Patient also had echocardiogram with EF of 60 to 65%. Patient is anemic, continue with iron supplementation. Glucose is up high in 300, increased insulin coverage. Given improvement in condition, there is no immediate need for an invasive bronchoscopy at this time. We will obtain chest x-ray in the morning. 04/03 patient is awake alert oriented x3 , feeling and breathing much better, up in the chair in room air now. Her expiratory wheezing has dissipated. Her chest x-ray has improved. From pulmonary standpoint patient can be discharged home. Continue with marijuana cessation. Continue antibiotic and steroid use. Instructed the patient to follow up with pulmonary services in two weeks post discharge. REVIEW OF SYSTEMS: 12 point ROS reviewed with patient. Pertinent positives mentioned above. Otherwise negative. PHYSICAL EXAM: GENERAL: alert, weak, awake oriented x 3 HEENT: EOMI, Sclera non icteric, moist mucosa NECK: Supple, no JVD, trachea midline LUNGS: Rales throughout, respiratory wheezing. HEART: Regular rate and rhythm. Normal S1 and S2, without murmurs ABD: Abdomen soft, nontender. Bowel sounds present EXT: No clubbing cyanosis or edema NEURO: Alert and oriented to person, follows commands Vital Signs (last 8hr) Date Time Temp Pulse Resp B/P (MAP) Pulse Ox O2 Delivery O2 Flow Rate FiO2 04/03/24 14:46 77 18 LABS: Hematology Labs: Test 04/03/24 04:13 04/02/24 03:17 Range/Units White Blood Count 24.0 H 4.8-10.8 K/uL Red Blood Count 4.83 4.00-5.50 MIL/uL Hemoglobin 7.2 L 12.0-16.0 g/dL Hematocrit 29.3 L 36-48 % Mean Corpuscular Volume 60.7 L 79-99 fL Mean Corpuscular Hemoglobin 14.9 L 27.0-33.0 pg Mean Corpuscular Hemoglobin Concent 24.6 L 32.0-36.0 g/dL Red Cell Distribution Width 20.2 H 11.0-15.5 % Platelet Count 368 130-400 K/uL Mean Platelet Volume 7.5-10.5 fL Immature Granulocyte % (Auto) 8.0 H 0-1 % Neutrophils (%) (Auto) 80.2 H 40.0-77.0 % Lymphocytes (%) (Auto) 7.3 L 21.0-51.0 % Monocytes (%) (Auto) 4.0 3.0-13.0 % Eosinophils (%) (Auto) 0.0 0.0-8.0 % Basophils (%) (Auto) 0.5 0.0-5.0 % Neutrophils # (Auto) 19.3 H 1.8-7.7 K/uL Lymphocytes # (Auto) 1.7 1.0-4.8 K/uL Monocytes # (Auto) 1.0 0.1-1.0 K/uL Eosinophils # (Auto) 0.01 0.00-0.70 K/uL Basophils # (Auto) 0.11 0.00-0.20 K/uL Absolute Immature Granulocyte (auto 1.91 H 0-1 K/uL Nucleated Red Blood Cells 0.8 H 0.0-0.19 % White Cell Morphology Comment See comments Chemistry Labs: Test 04/03/24 10:42 04/03/24 04:13 04/02/24 19:33 04/02/24 03:17 Range/Units Whole Blood Glucose 389 H 70-110 MG/DL Sodium Level 140 136-145 mmol/L Potassium Level 4.1 3.5-5.1 mmol/L Chloride Level 102 101-111 mmol/L Carbon Dioxide Level 30 21-32 mmol/L Blood Urea Nitrogen 14 7-18 mg/dL Creatinine 0.8 0.5-1.0 mg/dL Glomerular Filtration Rate Calc 94 >90 mL/min Random Glucose 326 H 70-105 mg/dL Total Calcium 8.8 8.5-10.1 mg/dL C-Reactive Protein, Quantitative 19.10 H 0.5-3.0 mg/L Bedside Glucose Comment Notified Nurse Phosphorus Level 3.0 2.5-4.9 mg/dL Magnesium Level 1.80 1.80-2.40 mg/dL DIAGNOSTICS / RADIOLOGY RESULTS: [ ] PLAN NEURO: Minimize central acting medications as possible. Maintain fall precautions, adequate lighting during the day PULMONARY: Supplemental 02 as needed. Maintain aspiration precautions at all times Oxygen supplementation CP overnight Antibiotic for community-acquired, Tapering steroids CARDIOVASCULAR: Follow hemodynamics. Vital signs per facility protocol Trend BNP Echocardiogram GI & NUTRITION: Continue with nutritional support. Continue stool softeners and laxatives as needed. Bowel regimen KIDNEYS & ELECTROLYTES: Strict monitoring of intake, output and overall fluid balance. Avoid nephrotoxic medications to the extent possible. Medications to be dosed according to renal function. Monitor electrolytes and replace as needed Iron panel is low, ferrous sulfate ENDOCRINE: Maintain blood glucose between 100-180 at all times. Hypoglycemia protocol in place Insulin sliding scale Hemoglobin A1c is 11, patient will need long-acting insulin. Diabetic education Weight management INFECTIOUS DISEASE: Trend temperature, WBC and procalcitonin level Follow cultures, deescalate antibiotics as soon as possible. Panculture if new onset fever ONCOLOGY/HEMATOLOGY/COAGULATION: Monitor for s/s of bleeding Monitor hemoglobin, coagulation studies as needed SKIN: Pressure ulcer prevention per facility protocol Specialty mattress ORTHO/REHAB: Continue PT/OT Prophylaxis: Continue GI and DVT prophylaxis Code Status: Full Resuscitation Disposition: TBD Other: Social for Substance abuse cessation Total patient care time exceeds 35 minutes excluding all procedures. SUKI GONSALEZ [facility] Apr 03, 2024 20:11
[2024-04-03 22:08] LABS: MYCOPLASMA AB IGM 905 U/mL (0-769)
== END 2024-04-03 15:50 | disposition home or self-care (01) | DRG 193 ==
LOC: EDH 10:42 → EDHIP 12:37 → 2AH 14:40
PROVIDERS: ADMIT Internal Medicine; ATTEND Internal Medicine
DX: J18.9 Pneumonia, unspecified organism (principal); J96.01 Acute respiratory failure with hypoxia; I24.89 Other forms of acute ischemic heart disease; E87.1 Hypo-osmolality and hyponatremia; D50.9 Iron deficiency anemia, unspecified; E87.6 Hypokalemia; N92.1 Excessive and frequent menstruation with irregular cycle; N92.0 Excessive and frequent menstruation with regular cycle; I45.10 Unspecified right bundle-branch block; I11.0 Hypertensive heart disease with heart failure; F12.10 Cannabis abuse, uncomplicated; E11.65 Type 2 diabetes mellitus with hyperglycemia; R55 Syncope and collapse; I50.9 Heart failure, unspecified; G47.33 Obstructive sleep apnea (adult) (pediatric); D72.829 Elevated white blood cell count, unspecified; E66.9 Obesity, unspecified; D75.838 Other thrombocytosis; Z98.891 History of uterine scar from previous surgery; Z98.51 Tubal ligation status; Z87.59 Personal history of other complications of pregnancy, childbirth and the puerperium; Z83.3 Family history of diabetes mellitus; Z82.49 Family history of ischemic heart disease and other diseases of the circulatory system; Z68.39 Body mass index [BMI] 39.0-39.9, adult
CPT/HCPCS: 36415; 36600; 70490; 71045; 71250; 76856; 80048; 80061; 80076; 80202; 80305; 81001; 82270; 82306; 82435; 82550; 82570; 82607; 82728; 82746; 82803; 82947; 82948; 83010; 83036; 83540; 83550; 83605; 83615; 83735; 83880; 84100; 84132; 84145; 84156; 84295; 84443; 84484; 84703; 85014; 85018; 85025; 85045; 85378; 85610; 85651; 85730; 86140; 86701; 86738; 86850; 86880; 86900; 86901; 87040; 87071; 87205; 87390; 87426; 87449; 87804; 87880; 93005; 93306; 93970; 94640; 94664; 96365; 96375; 99285; G0378; J0692; J1756; J1815; J2470; J2543; J2919; J3370; J7050; 3370; A4600